=== PATIENT | female | born 1940 | race Caucasian/White ===

== ENCOUNTER 2021-07-30 11:05 | Emergency (ER) | payer OTHER, SELFPAY ==
--- NOTE | ~2021-07-30 | XR_ITS ---
XR chest 2V DATE: 07/30/2021 12:07 INDICATION: Cough, shortness of breath TECHNIQUE: 2 views COMPARISON: 09/22/2018 PA and lateral chest FINDINGS: Cardiomegaly. Is aortic calcification, ectasia and tortuosity. The central pulmonary arteri es appear prominent, suggesting pulmonary hypertension. There is bilateral hyperinflation suggesting COPD. No active pulmonary infiltrate or consolidation, pleural effusion or pulmonary vascular congestion or pneumothorax is detected. There is diffuse osteopenia. There is chronic compression fracture deformity of an upper lumbar verte bra. IMPRESSION: Bilateral hyperinflation and prominent central pulmonary artery suggesting COPD and pulmo nary hypertension Cardiomegaly No active pulmonary disease Chronic mild to moderate anterior wedge compression fracture deformity of upper lumbar vertebra; diff use osteopenia Reviewed, dictated and finalized at location A. IMPRESSION: Bilateral hyperinflation and prominent central pulmonary artery sug gesting COPD and pulmonary hypertension Cardiomegaly No active pulmonary disease Chronic mild to moderate anterior wedge compression fracture deformity of upper lumbar vertebra; diffuse osteopenia
[2021-07-30 11:30] VITALS: BP 109/64; PULSE 94; RESP 18; TEMP 36.7; O2SAT 94
--- NOTE | 2021-07-30 12:09 | ED.URI ---
HPI - URI/Sore Throat General Chief Complaint: Upper Respiratory Infection Stated Complaint: Chills,Runny Nose,Shortness of Breath Source: patient Mode of arrival: ambulatory Limitations: no limitations History of Present Illness HPI Narrative: Patient is a 81-year-old female who presents with daughter after chills, fatigue, headache, shortness of breath with exertion and decreased p.o. intake x1 week. She denies fever, cough. She denies exposure to Covid, Covid vaccinated x2. Patient lives with family. She reports a history of hypertension and diabetes. She denies all other complaints at this time. She reports taking [id number]-[id number] medications without relief. Related Data Home Medications Medication Instructions Recorded Confirmed vit C 250 mg-vit E 90 mg-zinc 40 1 tablet PO BID 09/24/19 07/30/21 mg-copper 1 he-avxdvn-zrawiq capsule terbinafine HCl 250 mg tablet 250 mg PO DAILY tablet 04/12/21 07/30/21 metformin 500 mg PO TID 07/30/21 07/30/21 Allergies Allergy/AdvReac Type Severity Reaction Status Date / Time No Known Allergies Allergy Verified 07/30/21 12:11 Review of Systems Review of Systems: CONSTITUTIONAL: Reports chills EYES: Denies visual changes, redness, or discharge. ENT: Denies rhinorrhea, congestion, sore throat, or otalgia. CARDIOVASCULAR: Denies chest pain, palpitations, or edema. RESPIRATORY: Denies cough, reports dyspnea. GASTROINTESTINAL: Denies abdominal pain, nausea, vomiting, or diarrhea. GENITOURINARY: Denies dysuria or hematuria. SKIN: Denies rash or itching. MUSCULOSKELETAL: Denies back pain, joint pain, or myalgia. NEUROLOGIC: Reports headache, denies numbness, dizziness, or weakness. PSYCHIATRIC: Denies anxiety or depression. 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 Surgical History Surgical History History of total hysterectomy Family History Family History Mother Hypertension Family history of cardiovascular disease Father Cerebrovascular accident, Onset Age: 69 Sibling Family history of malignant neoplasm, Onset Age: 75 Social History Social History Second hand tobacco smoke exposure: No Smoking end date: 10/16/02 Alcohol intake: never Substance use: never Substance use type: does not use Gender identity (if verbalized by the patient): Female Comments At the time of signature, I have reviewed and agree with nursing past medical, surgical, social, and family history unless otherwise noted. Please see nursing chart for further information. There is no relevant family history pertinent to the presenting complaint. Exam Narrative: GENERAL: Well-appearing, well-nourished, and in no acute distress. HEAD: Normocephalic, atraumatic. EYES: EOMI. No redness or drainage. Conjunctiva are normal. ENT: Mucous membranes pink and moist CHEST: No respiratory distress. Diminished bilaterally, no wheezes noted HEART: Regular rate and rhythm. No murmur appreciated. Normal peripheral pulses. EXTREMITIES: Normal range of motion. No edema. SKIN: Warm, dry, no rash. NEURO: No focal deficits. Alert and oriented x3. Gait steady. PSYCH: Normal affect. No signs of depression or anxiety. Course Vital Signs Vital signs: Vital Signs Temperature 36.7 C 07/30/21 11:30 Pulse Rate 94 07/30/21 11:30 Respiratory Rate 18 07/30/21 11:30 Blood Pressure 109/64 07/30/21 11:30 Pulse Oximetry 94 07/30/21 11:30 Temperature 36.7 C 07/30/21 11:30 Pulse Rate 94 07/30/21 11:30 Respiratory Rate 18 07/30/21 11:30 Blood Pressure 109/64 07/30/21 11:30 Pulse Oximetry 94 07/30/21 11:30
== END 2021-07-30 12:44 | disposition home or self-care (01) ==
PROVIDERS: Emergency Provider Nurse Practitioner; PCP Family Medicine
DX: J06.9 Acute upper respiratory infection, unspecified (principal); Z20.822 Contact with and (suspected) exposure to COVID-19; Z85.42 Personal history of malignant neoplasm of other parts of uterus; H35.3132 Nonexudative age-related macular degeneration, bilateral, intermediate dry stage
CPT/HCPCS: 71046; 87426; 99213; C9803; G0463

== ENCOUNTER 2021-11-10 13:42 | Inpatient (IN) | payer OTHER, SELFPAY ==
--- NOTE | ~2021-11-10 | CT_ITS ---
EXAMINATION: CT abdomen pelvis wo con DATE: 11/11/2021 10:34 INDICATION: Diarrhea. TECHNIQUE: Computed tomography (CT) of the abdomen and pelvis was performed without intravenous contr ast. The dose-length product was 945.34 mGy-cm. Automated exposure control and iterative reconstructi on technique were employed. COMPARISON: None. FINDINGS: Lung bases are unremarkable. There is a 1.6 x 0.9 cm stone in the left UPJ with moderate le ft hydronephrosis and perinephric edema. There are nonobstructing left renal stones. Heart size normal. No significant pleural or pericardial effusion. Lung bases unremarkable. The liver, spleen, pancreas, adrenal glands are unremarkable. There is a small nonobstructing right r enal stone. Gallbladder is present. Nonobstructive bowel gas pattern. Colonic diverticulosis without evidence for diverticulitis. There is atherosclerosis without aneurysm. Small fat-containing umbilica l hernia. No abnormal pelvic masses or fluid collections. There is moderate lumbar spondylosis with l evoscoliosis. There is mild osteoarthritis of the hips. IMPRESSION: 1. Large left UPJ stone with moderate hydronephrosis and perinephric edema. 2: Nonobstructing bilateral nephrolithiasis. Reviewed, dictated and finalized at location B. RVISOR EDGING
--- NOTE | ~2021-11-10 | XR_ITS ---
XR chest 1V portable DATE: 11/10/2021 17:51 INDICATION: Cough. Weakness. TECHNIQUE: Portable upright AP chest on 11/10/2021 1747 hours COMPARISON: 07/30/2021 PA and lateral chest FINDINGS: Mild cardiomegaly. There is aortic calcification, ectasia, tortuosity. No hilar or mediasti nal enlargement. No pulmonary infiltrate or consolidation, pleural effusion or pulmonary vascular congestion or pneumo thorax. Diffuse osteopenia. IMPRESSION: Mild cardiomegaly Aortic calcification, ectasia, tortuosity No active pulmonary disease Reviewed, dictated and finalized at location A. E MANAGER
--- NOTE | ~2021-11-10 | XR_ITS ---
EXAMINATION: XR retrograde pyelo w/stent LT DATE: 11/11/2021 15:09 INDICATION: Left internal ureteral stent placement TECHNIQUE: Fluoroscopic images from a left internal ureteral stent placement are submitted for review . 65 seconds of fluoroscopy time. 5 fluoroscopic images FINDINGS: There is a left double-J internal ureteral stent projecting in expected position, with proximal Sylvester loop at the level of the renal pelvis and distal loop in the pelvis within the bladder lumen. IMPRESSION: 1. Left internal ureteral stent placement. Please refer to real-time procedural findings for detail s. Reviewed, dictated and finalized at location B. HAND MAINTENANCE IMPRESSION: 1. Left internal ureteral stent placement. Please refer to real-time procedur al findings for details.
--- NOTE | ~2021-11-10 | XR_ITS ---
EXAMINATION: XR abdomen/kub 1V DATE: 11/12/2021 08:13 INDICATION: Left ureteral stone. TECHNIQUE: A supine view of the abdomen was obtained. COMPARISON: CT abdomen and pelvis 11/11/2021 FINDINGS: There are no dilated loops of bowel. There is a left internal ureteral stent in expected po sition. There are 3 mm and 8 mm stones in left kidney. IMPRESSION: 1. Stones in left kidney. Left internal ureteral stent in expected position. Reviewed, dictated and finalized at location A. ICAL TREATMENT PLANT TECHNICIAN
[2021-11-10 14:17] VITALS: BP 106/64; PULSE 80; RESP 18; TEMP 36.7; O2SAT 95
[2021-11-10 15:31] VITALS: BP 107/58; PULSE 88; TEMP 36.6; O2SAT 95
[2021-11-10 17:35] VITALS: BP 114/77; PULSE 86; RESP 18; TEMP 36.8; O2SAT 95
--- NOTE | 2021-11-10 17:40 | ECG_ITS ---
Measurements Intervals [place] Rate: 84 P: 52 ND: 151 QRS: -19 QRSD: 92 T: 46 QT: 389 QTc: 461 Interpretive Statements SINUS RHYTHM ATRIAL PREMATURE COMPLEXES DELAYED PRECORDIAL R/S TRANSITION BORDERLINE ECG Electronically Signed On 11-11-2021 6:46:02 DESIGN/ANIMATION INSTRUCTOR by Jian Thrasher D.O.
[2021-11-10 18:06] LABS: Hematocrit 43.6 % (37.0-47.0); Hemoglobin 14.5 g/dL (12.0-15.0); Mean Corpuscular HGB Conc 33.3 g/dl (32-36); Mean Corpuscular Hemoglobin 30.4 pg (26-34); Mean Corpuscular Volume 91.4 fl (80-100); Mean Platelet Volume 11.6 fl (7.4-10.4); Platelet Count Result 454 k/mm3 (150-375); Red Blood Count 4.77 M/mm3 (4.2-5.4); Red Cell Distribution Width 13.9 % (11.5-14.5); White Blood Count 20.4 K/mm3 (4.5-10.0)
[2021-11-10 18:18] LABS: Alanine Aminotransferase 46 U/L (4-35); Albumin Level 4.1 g/dL (3.5-5.1); Alkaline Phosphatase 135 U/L (38-126); Anion Gap 14 mmol/L (8-16); Aspartate Amino Transferase 66 U/L (14-36); Blood Urea Nitrogen 40 mg/dL (7-17); Calcium 9.4 mg/dL (8.4-10.2); Carbon Dioxide 27 mmol/L (22-30); Chloride 93 mmol/L (98-107); Estimated CRCL calculation 19 ml/min; Estimated Glomerular Filt Rate 19; Glucose 149 mg/dL (65-110); Potassium 3.6 mmol/L (3.4-5.0); Sodium 134 mmol/L (137-145)
--- NOTE | 2021-11-10 18:40 | ED.GENADULT ---
HPI - General Adult General Chief complaint: Unspecified Stated complaint: Multiple complaints Time Seen by Provider: 11/10/21 17:42 Source: patient and RN notes reviewed Limitations: no limitations History of Present Illness HPI narrative: 81-year-old female presented emerge department for evaluation of diarrhea has been going on for approximately 1 week. Patient states over the course of the week she has had daily diarrhea. Patient reports fatigue at this point. Patient denies any associate abdominal pain. Patient did have similar symptoms of prolonged diarrhea a few years ago but nothing was found on her work-up. Related Data Allergies Allergy/AdvReac Type Severity Reaction Status Date / Time No Known Allergies Allergy Verified 11/10/21 17:35 Review of Systems Review of Systems: CONSTITUTIONAL: Does report generalized fatigue and malaise EYES: Denies visual changes, redness, or discharge. ENT: Denies rhinorrhea, congestion, sore throat, or otalgia. CARDIOVASCULAR: Denies chest pain, palpitations, or edema. RESPIRATORY: Denies cough or dyspnea. GASTROINTESTINAL: Denies abdominal pain nausea vomiting but does have diarrhea GENITOURINARY: Denies dysuria or hematuria. SKIN: Denies rash or itching. MUSCULOSKELETAL: Denies back pain, joint pain, or myalgia. NEUROLOGIC: Denies headache, numbness, or weakness. PMFSH Past Medical History Medical History History of tobacco use History of uterine cancer 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 Surgical History Surgical History History of total hysterectomy Family History Family History Mother Hypertension Family history of cardiovascular disease Father Cerebrovascular accident, Onset Age: 69 Sibling Family history of malignant neoplasm, Onset Age: 75 Social History Social History Second hand tobacco smoke exposure: No Smoking end date: 10/16/02 Alcohol intake: never Substance use: never Substance use type: does not use Gender identity (if verbalized by the patient): Female Exam Narrative: APPEARANCE: Well appearing, no pain, no distress, well-nourished. HEAD: normocephalic, atraumatic. EYES: PERRLA/EOMI, conjunctivae clear. NOSE: Normal no drainage NECK: Supple. No adenopathy, no masses. RESPIRATORY: Airway patent, respirations nonlabored. CARDIOVASCULAR: Regular rate and rhythm without murmurs rubs or gallops. ABDOMINAL: Soft, nontender, nondistended, normal bowel sounds MUSCULOSKELETAL: Moves all extremities. Strength/ROM intact, No edema, No calf tenderness. NEURO: Alert. Cranial nerves II through XII intact. SKIN: Warm, dry. Normal Color Course Course Emergency Course: Patient does have a significant acute kidney injury due to her dehydration and diarrhea. Patient is being rehydrated the restroom. Patient also has a urinary tract infection. Patient was treated with IV antibiotics. Case was discussed with the hospitalist and patient was accepted for admission for diarrhea, OVI, and UTI. I was updated on her results and plan for admission. All questions and concerns were addressed. Patient was stable at time of admission. Vital Signs Vital signs: Vital Signs Temperature 98.0 F 11/10/21 14:17 Pulse Rate 80 11/10/21 14:17 Respiratory Rate 18 11/10/21 14:17 Blood Pressure 106/64 11/10/21 14:17 Pulse Oximetry 95 11/10/21 14:17 Temperature 98.2 F 11/10/21 17:35 Pulse Rate 83 11/10/21 19:22 Respiratory Rate 20 11/10/21 19:22 Blood Pressure 111/55 L 11/10/21 19:22 Pulse Oximetry 97 11/10/21 19:22 Medical Decision Making Vital Signs Vital Signs: Vital Signs Temperature 98.0 F 11/10/21 14:17 Pulse Rate 80 11/10/21 14:17 Re
[2021-11-10 18:41] LABS: Band Neutrophils Percent 1 % (0-6); Lymphocytes Absolute Manual 2.44 K/mm3 (1.1-4.5); Monocytes Absolute Manual 2.44 K/mm3 (0.1-0.90); Monocytes Percent Manual 12 % (3-9); Neutrophils Percent Manual 75 % (46-73); Total Cells Counted 100
[2021-11-10 18:42] LABS: Platelet Estimate Increased (Adequate)
[2021-11-10] MEDS: SODIUM CHLORIDE 0.9% IV 1,000 ML 999 ML IV CONT (18:57)
[2021-11-10 19:22] VITALS: BP 111/55; PULSE 83; RESP 20; O2SAT 97
[2021-11-10 20:10] LABS: SARS-CoV-2 RNA PCR Negative
[2021-11-10 21:18] LABS: Add Urine Microscopic? YES; Appearance Urine Turbid (Clear); Bacteria Urine 2+ /hpf; Bilirubin Urine Negative (Negative); Color Urine Yellow (Yellow); Glucose Urine UA Negative (Negative); Ketones Urine Trace mg/dL (Negative); Leukocyte Esterase Ur 3+ LEU/UL (Negative); Mucus Urine Few /lpf; Nitrate Urine Negative (Negative); Protein Urine 2+ mg/dL (Negative); RBC Urine >75 /hpf (0-2); Specific Grav Ur 1.021 (1.001-1.035); Squamous Epithelial Cell Urine Many /hpf (Few); WBC Urine >75 /hpf
[2021-11-10 21:19] LABS: Blood Urine Negative (Negative)
[2021-11-10 22:54] VITALS: BP 109/59; PULSE 86; RESP 16; O2SAT 100
[2021-11-10 23:05] VITALS: BP 126/75; PULSE 91; RESP 16; TEMP 36.1; O2SAT 95; BMI 32.3
[2021-11-10] MEDS: SODIUM CHLORIDE 0.9% IV 1,000 ML 125 ML IV CONT (23:23)
--- NOTE | 2021-11-10 23:37 | ADMGEN ---
This patient, Alcira Contreras, was admitted to 3 [facility] Surg Room [id number]. Patient/family oriented to hospital policies and general routines including ID bracelet, bed and alarms, visiting hours, pain management, procedures, bathroom and other care routines, personal items, smoking policy, room service/diet, and visiting hours. Information on how to activate the Rapid Response Team has been discussed. Patient/Family are encouraged to report perceived risks to care and to ask questions if they do not understand what they are told or what they should do.
--- NOTE | 2021-11-10 23:49 | PM.IMHP ---
H&P: HPI History of Present Illness Date/Time: 11/10/21 23:49 Chief Complaint: Diarrhea Narrative: 81-year-old female who presented emergency department for evaluation of diarrhea directly from his primary care's office today. She has been having diarrhea since approximately a week. The diarrhea is constant and watery without any blood. She recently been to [place] about a month ago. No recent use of antibiotics. She has not been eating well over this course and has not been ambulatory as well due to generalized weakness that she has. She has also been feeling lightheaded. And went to see your primary care today for evaluation. She was noted to be hypotensive in the office and hence redirected to the ER for further evaluation. Patient reports some mild lower abdominal discomfort however no obvious pain. No fever chills nausea vomiting Review of Systems Review of Systems: - CONSTITUTIONAL: Denies weight loss, fever and chills. - HEENT: Denies changes in vision and hearing - RESPIRATORY: Denies SOB and cough. - CV: Denies palpitations and CP. - GI: Denies abdominal pain, nausea, vomiting and reports diarrhea. - : Denies dysuria and urinary frequency. - MSK: Denies myalgia and joint pain. - SKIN: Denies rash and pruritus. - NEUROLOGICAL: Denies headache and syncope. - PSYCHIATRIC: Denies recent changes in mood. Denies anxiety and depression. All systems reviewed & are unremarkable except as noted in HPI and below Constitutional: Constitutional: Reports fatigue and Reports weakness Neurologic: Reports weakness Endocrine: Endocrine: Reports fatigue PMFSH Past Medical History Medical History History of tobacco use History of uterine cancer 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 Surgical History Surgical History History of total hysterectomy Family History Family History Mother Hypertension Family history of cardiovascular disease Father Cerebrovascular accident, Onset Age: 69 Sibling Family history of malignant neoplasm, Onset Age: 75 Social History Social History Smoking status: Former smoker Second hand tobacco smoke exposure: No Alcohol intake: never Substance use: never Substance use type: does not use Gender identity (if verbalized by the patient): Female Spiritual care concerns: No Meds Home Medications and Allergies Home Medications Medication Instructions Recorded Confirmed Type cholecalciferol (vitamin D3) 1,250 1,250 mcg PO WEEKLY #12 cap 09/19/21 11/11/21 Rx mcg (50,000 unit) capsule metformin 500 mg tablet 500 mg PO TID #360 tablet 09/27/21 11/11/21 Rx amlodipine 5 mg tablet 5 mg PO DAILY #90 tablet 10/05/21 11/11/21 Rx benazepril 20 1 tablet PO DAILY #90 tablet 10/22/21 11/11/21 Rx mg-hydrochlorothiazide 12.5 mg tablet metoprolol tartrate 25 mg tablet 25 mg PO BID #180 tablet 10/22/21 11/11/21 Rx simvastatin 40 mg tablet 40 mg PO DAILY #90 tablet 10/22/21 11/11/21 Rx famotidine 20 mg tablet 20 mg PO BID #180 tablet 10/27/21 11/11/21 Rx Allergies Allergy/AdvReac Type Severity Reaction Status Date / Time No Known Allergies Allergy Verified 11/11/21 00:00 Vital Signs Vital Signs - 24 hr 11/10/21 14:17 11/10/21 15:31 11/10/21 17:35 Temperature 98.0 F 97.9 F 98.2 F Pulse Rate 80 88 86 Respiratory Rate 18 18 Blood Pressure 106/64 107/58 L 114/77 Pulse Oximetry 95 95 95 11/10/21 19:22 11/10/21 22:54 11/10/21 23:05 Temperature 97.0 F L Pulse Rate 83 86 91 Respiratory Rate 20 16 16 Blood Pressure 111/55 L 109/59 L 126/75 Pulse Oximetry 97 100 95 Exam Narrative: APPEARANCE: Well appearing, no pain, no distress, well-nourished. HEAD: nor
[2021-11-11] VITALS (11 sets, daily range): BP systolic 93–148; BP diastolic 50–78; PULSE 75–91; RESP 16–24; TEMP 36.2–36.8; O2SAT 92–100
[2021-11-11] MEDS: SODIUM CHLORIDE 0.9% IV 1,000 ML 125 ML IV CONT ×2 (05:38→19:33)
[2021-11-11 06:46] LABS: Toxigenic C. Diff NEGATIVE (NEGATIVE)
[2021-11-11 08:19] LABS: Glucose Point of Care 156 mg/dl (65-105)
[2021-11-11] MEDS: FAMOTIDINE 20 MG TABLET PO ×2 (08:26→20:07)
[2021-11-11] MEDS: HEPARIN SODIUM 5,000 UNITS/ML VIAL 5000 UNITS SUB-Q ×2 (08:26→20:07)
--- NOTE | 2021-11-11 10:03 | PM.IMPN ---
Progress Note: A&P Assessment and Plan (1) OVI (acute kidney injury): Code(s): N17.9 - Acute kidney failure, unspecified Status: Acute Assessment and Plan: Most likely related to dehydration give IV fluid (2) Acute UTI: Code(s): N39.0 - Urinary tract infection, site not specified Status: Acute Assessment and Plan: Continue IV antibiotics (3) Acute diarrhea: Code(s): R19.7 - Diarrhea, unspecified Status: Acute Assessment and Plan: Rule out C diff colitis Will get GI evaluation CT scan of the abdomen Adjust antibiotic to Rocephin and azithromycin (4) Hypotension: Code(s): I95.9 - Hypotension, unspecified Status: Acute Assessment and Plan: Most likely related to dehydration give IV fluid (5) Weakness: Code(s): R53.1 - Weakness Status: Acute Assessment and Plan: PT OT eval (6) Type 2 diabetes mellitus with stage 3a chronic kidney disease: Code(s): E11.22 - Type 2 diabetes mellitus with diabetic chronic kidney disease; N18.31 - Chronic kidney disease, stage 3a Status: Acute Assessment and Plan: Insulin sliding scale (7) Hypertensive chronic kidney disease: Code(s): I12.9 - Hypertensive chronic kidney disease with stage 1 through stage 4 chronic kidney disease, or unspecified chronic kidney disease Status: Acute Assessment and Plan: Associated with acute renal failure (8) Essential (primary) hypertension: Code(s): I10 - Essential (primary) hypertension Status: Acute Assessment and Plan: Continue current treatment hypotension has resolved (9) Mixed hyperlipidemia: Code(s): E78.2 - Mixed hyperlipidemia Status: Acute Assessment and Plan: Continue home medication Subjective Date/time seen: 11/11/21 10:03 Interval history: Patient presented to the hospital with abdominal pain generalized weakness nausea Was found to have acute renal failure probable infectious colitis admitted for further evaluation and treatment Patient feels weak complains of abdominal pain Patient denies fever headache chest pain shortness of breath I am seeing the patient for abdominal pain Exam Narrative: APPEARANCE: Well appearing, no pain, no distress, well-nourished. HEAD: normocephalic, atraumatic. EYES: PERRLA/EOMI, conjunctivae clear. NOSE: Normal no drainage NECK: Supple. No adenopathy, no masses. RESPIRATORY: Airway patent, respirations nonlabored. CARDIOVASCULAR: Regular rate and rhythm without murmurs rubs or gallops. ABDOMINAL: Soft, mild tender lower abdomen, nondistended, normal bowel sounds MUSCULOSKELETAL: Moves all extremities. Strength/ROM intact, No edema, No calf tenderness. NEURO: Alert. Cranial nerves II through XII intact. SKIN: Warm, dry. Normal Color Objective Data Vital Signs Vital Signs: Vital Signs - 24 hr 11/10/21 14:17 11/10/21 15:31 11/10/21 17:35 Temperature 98.0 F 97.9 F 98.2 F Pulse Rate 80 88 86 Respiratory Rate 18 18 Blood Pressure 106/64 107/58 L 114/77 Pulse Oximetry 95 95 95 11/10/21 19:22 11/10/21 22:54 11/10/21 23:05 Temperature 97.0 F L Pulse Rate 83 86 91 Respiratory Rate 20 16 16 Blood Pressure 111/55 L 109/59 L 126/75 Pulse Oximetry 97 100 95 11/11/21 06:00 Temperature 97.4 F L Pulse Rate 91 Respiratory Rate 16 Blood Pressure 148/74 H Pulse Oximetry 92 Intake/Output Intake/Output: Intake & Output 11/08/21 11/09/21 11/10/21 11/11/21 23:59 23:59 23:59 23:59 Intake Total 1050 1400 Balance 1050 1400 Meds/Results Medications: Active Medications Generic Name Dose Route Start Last Admin Trade Name Freq PRN Reason Stop Dose Admin Hydrocodone Bitart/Acetaminophen 1 tab 11/11/21 10:01 Hydrocodone/Acetaminophen (*Crx) 5-325 Mg Tablet PO Q6H PRN Pain Rated 4-6 Dextrose 12.5 gm 11/11/21 00:01 Dextrose 50% 25 Gm/50 Ml Syringe IV PUSH PRN PRN Hypoglycemia P
[2021-11-11] MEDS: METOPROLOL TARTRATE 25 MG TABLET PO ×2 (12:23→20:06)
[2021-11-11] MEDS: SIMVASTATIN 20 MG TABLET 40 MG PO (12:24)
[2021-11-11 12:48] LABS: Glucose Point of Care 132 mg/dl (65-105)
--- NOTE | 2021-11-11 13:36 | WPDANESEPPF ---
Anes - Initial Pre Proc Eval Procedure: Operation Date: 11/11/21 13:45 Proposed Procedures p Cystoscopy,Left Stent Placement - Freddie Pichardo MD Date/Time: 11/11/21 13:36 Surgeon: Frank Simon MD Pre Op Diagnosis: diarrhea, acute kidney injury Patient Data Age: 81 Gender: F Height: 1.68 m Weight: 90.7 kg Last Vital Signs Temp 36.3 C L 11/11/21 06:00 Pulse 91 11/11/21 06:00 Resp 16 11/11/21 06:00 BP 148/74 H 11/11/21 06:00 Pulse Ox 92 11/11/21 06:00 Allergies Allergy/AdvReac Type Severity Reaction Status Date / Time No Known Allergies Allergy Verified 11/11/21 00:00 Home Medications Medication Instructions Recorded Confirmed Type cholecalciferol (vitamin D3) 1,250 1,250 mcg PO WEEKLY #12 cap 09/19/21 11/11/21 Rx mcg (50,000 unit) capsule metformin 500 mg tablet 500 mg PO TID #360 tablet 09/27/21 11/11/21 Rx amlodipine 5 mg tablet 5 mg PO DAILY #90 tablet 10/05/21 11/11/21 Rx benazepril 20 1 tablet PO DAILY #90 tablet 10/22/21 11/11/21 Rx mg-hydrochlorothiazide 12.5 mg tablet metoprolol tartrate 25 mg tablet 25 mg PO BID #180 tablet 10/22/21 11/11/21 Rx simvastatin 40 mg tablet 40 mg PO DAILY #90 tablet 10/22/21 11/11/21 Rx famotidine 20 mg tablet 20 mg PO BID #180 tablet 10/27/21 11/11/21 Rx Laboratory Tests 11/10/21 11/10/21 11/10/21 17:55 17:55 19:04 WBC 20.4 K/mm3 H K/mm3 (4.5-10.0) RBC 4.77 M/mm3 M/mm3 (4.2-5.4) Hgb 14.5 g/dL g/dL (12.0-15.0) Hct 43.6 % % (37.0-47.0) MCV 91.4 fl fl (80-100) MCH 30.4 pg pg (26-34) MCHC 33.3 g/dl g/dl (32-36) RDW 13.9 % % (11.5-14.5) Plt Count 454 k/mm3 H k/mm3 (150-375) MPV 11.6 fl H fl (7.4-10.4) Immature Gran % (Auto) Not Reportable Neut % (Auto) Not Reportable Lymph % (Auto) Not Reportable [place] % (Auto) Not Reportable Eos % (Auto) Not Reportable Baso % (Auto) Not Reportable Lymph # (Auto) Not Reportable [place] # (Auto) Not Reportable Eos # (Auto) Not Reportable Baso # (Auto) Not Reportable Abs Immat Gran (auto) Not Reportable Absolute Neuts (auto) Not Reportable Absolute Nucleated RBC Not Reportable Total Counted 100 Neutrophils % (Manual) 75 % H % (46-73) Band Neutrophils % 1 % % (0-6) Lymphocytes % (Manual) 12.0 % L % (18-44) Monocytes % (Manual) 12 % H % (3-9) Nucleated RBC % Not Reportable Abs Neuts (Manual) 15.50 K/mm3 H K/mm3 (1.7-7.2) Abs Lymphs (Manual) 2.44 K/mm3 K/mm3 (1.1-4.5) Abs Monocytes (Manual) 2.44 K/mm3 H K/mm3 (0.1-0.90) Platelet Estimate Increased (Adequate) Sodium 134 mmol/L L mmol/L (137-145) Potassium 3.6 mmol/L mmol/L (3.4-5.0) Chloride 93 mmol/L L mmol/L (98-107) Carbon Dioxide 27 mmol/L mmol/L (22-30) Anion Gap 14 mmol/L mmol/L (8-16) BUN 40 mg/dL H mg/dL (7-17) Creatinine 2.40 mg/dL H mg/dL (0.7-1.0) Estim Creat Clear Calc 19 ml/min ml/min Estimated GFR 19 L (59 - ) Glucose 149 mg/dL H mg/dL (65-110) POC Capillary Glucose Calcium 9.4 mg/dL mg/dL (8.4-10.2) Total Bilirubin 1.0 mg/dL mg/dL (0.2-1.3) AST 66 U/L H U/L (14-36) ALT 46 U/L H U/L (4-35) Alkaline Phosphatase 135 U/L H U/L (38-126) Total Protein 8.0 g/dL g/dL (6.3-8.2) Albumin 4.1 g/dL g/dL (3.5-5.1) Urine Color Urine Appearance Urine pH Ur Specific [place] Urine Protein Urine Glucose (UA) Urine Ketones Ur Blood (Man) Urine Nitrate
--- NOTE | 2021-11-11 13:44 | WPDURCON ---
Assessment and Plan Assessment and plan (1) OVI (acute kidney injury): Code(s): N17.9 - Acute kidney failure, unspecified Status: Acute (2) Acute UTI: Code(s): N39.0 - Urinary tract infection, site not specified Status: Acute (3) Left ureteral stone: Code(s): N20.1 - Calculus of ureter Status: Acute Assessment and Plan: Presence of an obstructing left proximal ureteral stone with urinary tract infection and transient hypotension I will proceed with cystoscopy left ureteral stent placement. In the future she will need left his tibia was definitive management for her obstructing stone. Urology Consult Note HPI Date Seen: 11/11/21 Requesting Physician: Frank Simon MD Primary Care Provider: Shelli Vieyra MD Consult Narrative Narrative: Alcira Contreras is a 81 year old female, previously unknown to our practice, admitted to the emergency department last night with 1 week history of ataxia and documented hypotension is a physician's office. She denies much in the way of abdominal or flank pain and has no irritable voiding or gross hematuria. Imaging today, however, reveals an 8-9 mm obstructing left proximal ureteral stone she appears to have infected urine. 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 Mixed hyperlipidemia Obesity Primary osteoarthritis of both knees Type 2 diabetes mellitus without complication, without long-term current use of insulin Surgical History Surgical History History of total hysterectomy Family History Family History Mother Hypertension Family history of cardiovascular disease Father Cerebrovascular accident, Onset Age: 69 Sibling Family history of malignant neoplasm, Onset Age: 75 Social History Social History Smoking status: Former smoker Second hand tobacco smoke exposure: No Alcohol intake: never Substance use: never Substance use type: does not use Gender identity (if verbalized by the patient): Female Spiritual care concerns: No Meds Home Medications and Allergies Home Medications Medication Instructions Recorded Confirmed Type cholecalciferol (vitamin D3) 1,250 1,250 mcg PO WEEKLY #12 cap 09/19/21 11/11/21 Rx mcg (50,000 unit) capsule metformin 500 mg tablet 500 mg PO TID #360 tablet 09/27/21 11/11/21 Rx amlodipine 5 mg tablet 5 mg PO DAILY #90 tablet 10/05/21 11/11/21 Rx benazepril 20 1 tablet PO DAILY #90 tablet 10/22/21 11/11/21 Rx mg-hydrochlorothiazide 12.5 mg tablet metoprolol tartrate 25 mg tablet 25 mg PO BID #180 tablet 10/22/21 11/11/21 Rx simvastatin 40 mg tablet 40 mg PO DAILY #90 tablet 10/22/21 11/11/21 Rx famotidine 20 mg tablet 20 mg PO BID #180 tablet 10/27/21 11/11/21 Rx Allergies Allergy/AdvReac Type Severity Reaction Status Date / Time No Known Allergies Allergy Verified 11/11/21 00:00 Vital Signs Vital Signs - 24 hr 11/10/21 14:17 11/10/21 15:31 11/10/21 17:35 Temperature 98.0 F 97.9 F 98.2 F Pulse Rate 80 88 86 Respiratory Rate 18 18 Blood Pressure 106/64 107/58 L 114/77 Pulse Oximetry 95 95 95 11/10
[2021-11-11] MEDS: LACTATED RINGERS 1,000 ML 30 ML IV CONT ×2 (14:00→15:40)
--- NOTE | 2021-11-11 14:07 | WPDGICN ---
Assessment and Plan Assessment and plan (1) Acute diarrhea: Code(s): R19.7 - Diarrhea, unspecified Status: Acute Assessment and Plan: Patient with profound diarrhea over last 1 and half weeks. Appears to be gradually improving. Suspect this was infectious in etiology. Stool cultures are currently in progress. Plan to review when available. Supportive care for now. Broad-spectrum antibiotics may be of some benefit. Also to cover for possible urinary tract infection. (2) Left ureteral stone: Code(s): N20.1 - Calculus of ureter Status: Acute Assessment and Plan: CT scan reveals left ureteral stone with subsequent left hydronephrosis. Urology service anticipating cystoscopy. Patient has concomitant urinary tract infection hopefully antibiotic coverage will cover UTI as well as potential for infectious diarrhea. GI Consult Note Consult date/time: 11/11/21 14:07 HPI: Alcira Contreras is a 81 year old female I am asked to see because of diarrhea. Patient reports traveling to [place] 1 month ago with no difficulties. She reports over last 1 and half weeks has had diarrhea. Initially poorly controlled. She states she now has soft stools that are more controlled in diarrhea has improved over recent days. She denies any bleeding. She has had no abdominal pain. No weight loss. Upon presentation the hospital CT scan performed revealed left hydronephrosis and obstructing kidney stone in the left ureter. Patient reports stool cultures obtained earlier today are still pending. Her family history is noncontributory no one else in the family is ill. 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 Mixed hyperlipidemia Obesity Primary osteoarthritis of both knees Type 2 diabetes mellitus without complication, without long-term current use of insulin Surgical History Surgical History History of total hysterectomy Family History Family History Mother Hypertension Family history of cardiovascular disease Father Cerebrovascular accident, Onset Age: 69 Sibling Family history of malignant neoplasm, Onset Age: 75 Social History Social History Smoking status: Former smoker Second hand tobacco smoke exposure: No Alcohol intake: never Substance use: never Substance use type: does not use Gender identity (if verbalized by the patient): Female Spiritual care concerns: No Meds Home Medications and Allergies Home Medications Medication Instructions Recorded Confirmed Type cholecalciferol (vitamin D3) 1,250 1,250 mcg PO WEEKLY #12 cap 09/19/21 11/11/21 Rx mcg (50,000 unit) capsule metformin 500 mg tablet 500 mg PO TID #360 tablet 09/27/21 11/11/21 Rx amlodipine 5 mg tablet 5 mg PO DAILY #90 tablet 10/05/21 11/11/21 Rx benazepril 20 1 tablet PO DAILY #90 tablet 10/22/21 11/11/21 Rx mg-hydrochlorothiazide 12.5 mg tablet metoprolol tartrate 25 mg tablet 25 mg PO BID #180 tablet 10/22/21 11/11/21 Rx simvastatin 40 mg tablet 40 mg PO DAILY #90 tablet 10/22/21 11/11/21 Rx famotidine 20 mg tablet 20 mg PO BID #180 tablet 10/27/21 11/11/21 Rx Allergies Allergy/AdvReac Type Severity Reaction Status Date / Time No Known Allergies Allergy Verified 11/11/21 00:00 Vital Signs Vital Signs - 24 hr 11/10/21 14:17 11/10/21 15:31 11/10/21 17:35 Temperature 98.0 F 97.9 F 98.2 F Pulse Rate 80 88 86 Respiratory Rate
--- NOTE | 2021-11-11 14:27 | WPDHPUPDATE1 ---
History and Physical Update Update Date/Time: 11/11/21 14:27 History and Physical has been reviewed, including an updated exam of the patient. There are NO changes in the patient's condition. Risks, benefits, and alternatives have been discussed and questions answered. Patient agrees to proceed with procedure.
--- NOTE | 2021-11-11 15:22 | W.PM.PROC2 ---
Procedure Note - Detailed Date of Procedure 11/11/21 Pre-op Diagnosis Left ureteral stone / UIT Post-op Diagnosis same Procedure Performed cystoscopy, left retrograde pyelography and left ureteral stent placement Surgeon Freddie Pichardo MD Anesthesia general Description of Procedure patient brought to the operative suite where she has prepped draped in routine sterile fashion while in dorsal lithotomy position after the uneventful induction of a general endotracheal anesthetic. Cystoscopy is undertaken with a 21 F rigid cystoscope. Bladder neck and urethra endoscopically normal. She has a normal bladder mucosa without hyperemia. There was no intravesical foreign body neoplasm. Angiographic catheter was used to obtain left retrograde pyelogram and outline left collecting system. A 4.8 F left ureteral stent is positioned with the proximal coil and upper pole calices and the distal coil in the bladder. Scopes wires removed. Patient was taken recovery room having tolerated this well. Estimated Blood Loss 0 Drains Yes Packing No Pathology none sent Complications No immediate complications Condition stable Disposition PACU
[2021-11-11 15:28] LABS: Glucose Point of Care 144 mg/dl (65-105)
[2021-11-11] MEDS: metroNIDAZOLE 500 MG/ISO 100ML 500 MG/100 ML BAG 100 MG IVPB ×2 (16:44→22:00)
[2021-11-11 17:14] LABS: Glucose Point of Care 149 mg/dl (65-105)
[2021-11-11 18:01] LABS: Hematocrit 39.7 % (37.0-47.0); Hemoglobin 13.1 g/dL (12.0-15.0); Mean Corpuscular Hemoglobin 30.4 pg (26-34); Mean Corpuscular Volume 92.1 fl (80-100); Mean Platelet Volume 11.7 fl (7.4-10.4); Platelet Count Result 405 k/mm3 (150-375); Red Blood Count 4.31 M/mm3 (4.2-5.4); White Blood Count 21.2 K/mm3 (4.5-10.0)
[2021-11-11] MEDS: ERTAPENEM SODIUM 0.5 GM in SODIUM CHLORIDE 0.9% IV 50 ML IVPB (18:07)
[2021-11-11 18:12] LABS: Lactic Acid Reflex 1.3 mmol/L (0.7-2.1)
[2021-11-11 18:13] LABS: Alanine Aminotransferase 44 U/L (4-35); Albumin Level 3.5 g/dL (3.5-5.1); Alkaline Phosphatase 126 U/L (38-126); Anion Gap 13 mmol/L (8-16); Aspartate Amino Transferase 74 U/L (14-36); Bilirubin,Total 0.9 mg/dL (0.2-1.3); Blood Urea Nitrogen 33 mg/dL (7-17); Calcium 8.6 mg/dL (8.4-10.2); Carbon Dioxide 20 mmol/L (22-30); Chloride 100 mmol/L (98-107); Estimated CRCL calculation 28 ml/min; Estimated Glomerular Filt Rate 31; Glucose 159 mg/dL (65-110); Potassium 3.8 mmol/L (3.4-5.0); Sodium 133 mmol/L (137-145)
[2021-11-11 18:21] LABS: CRP 6.8 mg/dL (<1.0)
[2021-11-11 18:43] LABS: Band Neutrophils Percent 7 % (0-6); Lymphocytes Absolute Manual 0.42 K/mm3 (1.1-4.5); Monocytes Absolute Manual 0.63 K/mm3 (0.1-0.90); Monocytes Percent Manual 3 % (3-9); Neutrophils Absolute Manual 20.14 K/mm3 (1.7-7.2); Neutrophils Percent Manual 88 % (46-73); Platelet Estimate Increased (Adequate); Total Cells Counted 100
[2021-11-11 19:08] LABS: Erythrocyte Sedimentation Rate 18 mm/hr (0-20)
[2021-11-12] MEDS: SODIUM CHLORIDE 0.9% IV 1,000 ML 125 ML IV CONT (04:54)
[2021-11-12] MEDS: metroNIDAZOLE 500 MG/ISO 100ML 500 MG/100 ML BAG 100 MG IVPB ×3 (05:02→22:37)
[2021-11-12 06:00] VITALS: BP 145/74; PULSE 72; RESP 16; TEMP 36.6; O2SAT 93
--- NOTE | 2021-11-12 07:09 | WPDUROPN2 ---
Progress Note: A&P Assessment and Plan (1) Left ureteral stone: Code(s): N20.1 - Calculus of ureter Status: Acute (2) Acute UTI: Code(s): N39.0 - Urinary tract infection, site not specified Status: Acute Assessment and Plan: Await urine culture. Anticipate discharge once other medical issues resolved. F/U with us in 1-2 weeks to re-check urine culture and schedule left ESWL. Subjective Subjective Date/Time Seen: 11/12/21 07:09 Tolerating left ureteral stent Review of Systems Cardiovascular: Cardiovascular: Denies chest pain, Denies lightheadedness, Denies palpitations and Denies dyspnea Respiratory: Respiratory: Denies dyspnea Gastrointestinal: Gastrointestinal: Denies diarrhea, Denies nausea and Denies vomiting Genitourinary: Genitourinary: Denies hematuria and Denies dysuria Endocrine: Endocrine: Denies palpitations Exam Const: General: no acute distress Resp: Effort & Inspection: normal respiratory effort GI: Inspection: non-distended GI Palp: No abdominal tenderness and No Guarding due to palpation present (GI) Auscultation: normal bowel sounds Objective Data Vital Signs Vital Signs: Vital Signs - 24 hr 11/11/21 14:08 11/11/21 15:18 11/11/21 15:30 Temperature 98.2 F 97.2 F L Pulse Rate 76 79 76 Respiratory Rate 16 24 H 20 Blood Pressure 133/68 93/50 L 93/63 L Pulse Oximetry 96 99 97 11/11/21 15:45 11/11/21 15:55 11/11/21 16:05 Temperature Pulse Rate 76 84 78 Respiratory Rate 24 H 20 20 Blood Pressure 101/72 128/68 125/67 Pulse Oximetry 100 93 98 11/11/21 16:15 11/11/21 20:00 11/11/21 20:06 Temperature Pulse Rate 76 75 76 Respiratory Rate 20 18 Blood Pressure 114/66 Pulse Oximetry 97 93 11/11/21 22:00 11/12/21 06:00 Temperature 97.6 F 97.9 F Pulse Rate 75 72 Respiratory Rate 18 16 Blood Pressure 142/78 H 145/74 H Pulse Oximetry 93 93 Intake/Output Intake/Output: Intake & Output 11/09/21 11/10/21 11/11/21 11/12/21 23:59 23:59 23:59 23:59 Intake Total 1050 4140 1450 Balance 1050 4140 1450 Meds/Results Medications: Active Medications Generic Name Dose Route Start Last Admin Trade Name Freq PRN Reason Stop Dose Admin Hydrocodone Bitart/Acetaminophen 1 tab 11/11/21 10:01 Hydrocodone/Acetaminophen (*Crx) 5-325 Mg Tablet PO Q6H PRN Pain Rated 4-6 Dextrose 12.5 gm 11/11/21 00:01 Dextrose 50% 25 Gm/50 Ml Syringe IV PUSH PRN PRN Hypoglycemia Protocol Ergocalciferol 50,000 unit 11/14/21 09:00 Ergocalciferol 50,000 Unit Capsule PO WEEKLY MACIE Famotidine 20 mg 11/11/21 09:00 11/11/21 20:07 Famotidine 20 Mg Tablet PO 20 mg Q12HR MACIE Administration Fentanyl Citrate 25 mcg 11/11/21 13:35 Fentanyl Citrate Inj (*Crx) 100 Mcg/2 Ml Vial IV PUSH Q2M PRN Pain Glucagon 1 mg 11/11/21 00:01 Glucagon For Inj 1 Mg Vial IM PRN PRN Hypoglycemia Protocol Glucose 15 gm 11/11/21 00:01 Glucose Oral Gel 15 Gm Of Glucse In 37.5 Gm Tube PO PRN PRN Hypoglycemia Protocol Heparin Sodium (Porcine) 5,000 units 11/11/21 09:00 11/11/21 20:07 Heparin Sodium 5,000 Units/Ml Vial SUB-Q 5,000 units Q12HR MACIE Administration Sodium Chloride 1,000 mls @ 125 mls/hr 11/10/21 20:05 11/12/21 04:54 Normal Saline Iv IV CONT 125 mls/hr .Q8H MACIE Administration Dextrose 1,000 mls @ 100 mls/hr 11/11/21 00:01 Dextrose 5% 1,000 Ml IVPB PRN PRN Hypoglycemia Protocol Metronidazole 500 mg in 100 mls @ 100 mls/hr 11/11/21 14:00 11/12/21 05:02 Flagyl 500 Mg/Iso Soln 100 Ml IVPB 100 mls/hr Q8HR MACIE Administration Ertapenem 0.5 gm/ Sodium 50 mls @ 100 mls/hr 11/11/21 13:00 11/11/21 18:40 Chloride IVPB Infused Q24H MACIE Infusion Insulin Aspart 2 - 5 units 11/11/21 08:00 11/11/21 16:44 Insulin Aspart (*Bkc) 100 Units/Ml SUB-Q Not Given TIDWM MACIE Protocol Metoprolol Ta
[2021-11-12 08:15] LABS: Glucose Point of Care 110 mg/dl (65-105)
--- NOTE | 2021-11-12 08:30 | WPDGIPROGNO ---
Progress Note: A&P Assessment and Plan (1) Acute diarrhea: Code(s): R19.7 - Diarrhea, unspecified Status: Acute Assessment and Plan: Patient reports diarrhea for week and half but now improving. I suspect this was infectious in etiology. Agree with stool cultures which are in progress. Broad-spectrum antibiotic coverage that covers our urinary tract infection is prudent. She can follow-up electively in the office if diarrhea fails to improve is an outpatient. Okay with me for discharge today of others agree. (2) Acute UTI: Code(s): N39.0 - Urinary tract infection, site not specified Status: Acute (3) Left ureteral stone: Code(s): N20.1 - Calculus of ureter Status: Acute Assessment and Plan: Patient had stent for left ureteral stone yesterday. Continued follow-up with Urology Service advised. Subjective Date/time seen: 11/12/21 08:30 patient entered admitted to the hospital with malaise. Found to have UTI and ureteral stone. Now status post cysto and stent. She will require lithotripsy at some point. Patient has had diarrhea for the last week and a half but this is improving. patient reports no significant diarrhea since admission the hospital. Anxious to go home. Review of Systems Review of Systems: All systems reviewed & are unremarkable except as noted in HPI and below Exam Narrative: Physical exam reveals patient be alert comfortable at rest. HEENT exam reveals no icterus. Lungs are clear. Heart without murmur. Abdomen bowel sounds present soft nontender with no organomegaly. Objective Data Vital Signs Vital Signs: Vital Signs - 24 hr 11/11/21 14:08 11/11/21 15:18 11/11/21 15:30 Temperature 98.2 F 97.2 F L Pulse Rate 76 79 76 Respiratory Rate 16 24 H 20 Blood Pressure 133/68 93/50 L 93/63 L Pulse Oximetry 96 99 97 11/11/21 15:45 11/11/21 15:55 11/11/21 16:05 Temperature Pulse Rate 76 84 78 Respiratory Rate 24 H 20 20 Blood Pressure 101/72 128/68 125/67 Pulse Oximetry 100 93 98 11/11/21 16:15 11/11/21 20:00 11/11/21 20:06 Temperature Pulse Rate 76 75 76 Respiratory Rate 20 18 Blood Pressure 114/66 Pulse Oximetry 97 93 11/11/21 22:00 11/12/21 06:00 Temperature 97.6 F 97.9 F Pulse Rate 75 72 Respiratory Rate 18 16 Blood Pressure 142/78 H 145/74 H Pulse Oximetry 93 93 Intake/Output Intake/Output: Intake & Output 11/09/21 11/10/21 11/11/21 11/12/21 23:59 23:59 23:59 23:59 Intake Total 1050 4140 1450 Balance 1050 4140 1450 Meds/Results Medications: Active Medications Generic Name Dose Route Start Last Admin Trade Name Freq PRN Reason Stop Dose Admin Hydrocodone Bitart/Acetaminophen 1 tab 11/11/21 10:01 Hydrocodone/Acetaminophen (*Crx) 5-325 Mg Tablet PO Q6H PRN Pain Rated 4-6 Dextrose 12.5 gm 11/11/21 00:01 Dextrose 50% 25 Gm/50 Ml Syringe IV PUSH PRN PRN Hypoglycemia Protocol Ergocalciferol 50,000 unit 11/14/21 09:00 Ergocalciferol 50,000 Unit Capsule PO WEEKLY MACIE Famotidine 20 mg 11/11/21 09:00 11/11/21 20:07 Famotidine 20 Mg Tablet PO 20 mg Q12HR MACIE Administration Fentanyl Citrate 25 mcg 11/11/21 13:35 Fentanyl Citrate Inj (*Crx) 100 Mcg/2 Ml Vial IV PUSH Q2M PRN Pain Glucagon 1 mg 11/11/21 00:01 Glucagon For Inj 1 Mg Vial IM PRN PRN Hypoglycemia Protocol Glucose 15 gm 11/11/21 00:01 Glucose Oral Gel 15 Gm Of Glucse In 37.5 Gm Tube PO PRN PRN Hypoglycemia Protocol Heparin Sodium (Porcine) 5,000 units 11/11/21 09:00 11/11/21 20:07 Heparin Sodium 5,000 Units/Ml Vial SUB-Q 5,000 units Q12HR MACIE Administration Sodium Chloride 1,000 mls @ 125 mls/hr 11/10/21 20:05 11/12/21 04:54 Normal Saline Iv IV CONT 125 mls/hr .Q8H MACIE Administration Dextrose 1,000 mls @ 100 mls/hr 11/11/21 00:01 Dextrose 5% 1,000 Ml IVPB PRN PRN Hypoglycemia
[2021-11-12 08:49] VITALS: PULSE 76
[2021-11-12] MEDS: SIMVASTATIN 20 MG TABLET 40 MG PO (08:49)
[2021-11-12] MEDS: METOPROLOL TARTRATE 25 MG TABLET PO ×2 (08:49→22:37)
[2021-11-12] MEDS: FAMOTIDINE 20 MG TABLET PO ×2 (08:49→22:36)
[2021-11-12] MEDS: HEPARIN SODIUM 5,000 UNITS/ML VIAL 5000 UNITS SUB-Q ×2 (08:49→22:36)
[2021-11-12 10:31] LABS: Basophils Absolute Auto 0.1 K/mm3 (0.0-0.1); Basophils Percent Auto 0.3 % (0.2-1.2); Eosinophils Absolute Auto 0.1 K/mm3 (0-0.3); Eosinophils Percent Auto 0.3 % (0-4.4); Hemoglobin 11.2 g/dL (12.0-15.0); Immature Granulocyte Absolute 0.18 K/mm3 (0.00-0.031); Immature Granulocyte Percent A 1.2 % (0-0.5); Mean Corpuscular Hemoglobin 30.4 pg (26-34); Mean Corpuscular Volume 94.9 fl (80-100); Mean Platelet Volume 11.4 fl (7.4-10.4); Monocytes Absolute Auto 1.4 K/mm3 (0.1-0.6); Monocytes Percent Auto 9.2 % (2.6-8.5); Neutrophils Absolute Auto 11.9 K/mm3 (1.3-6.7); Platelet Count Result 343 k/mm3 (150-375); Red Blood Count 3.69 M/mm3 (4.2-5.4); Red Cell Distribution Width 14.2 % (11.5-14.5)
--- NOTE | 2021-11-12 10:32 | PM.IMPN ---
Progress Note: A&P Assessment and Plan (1) OVI (acute kidney injury): Code(s): N17.9 - Acute kidney failure, unspecified Status: Acute Assessment and Plan: Most likely related to dehydration give IV fluid pending repeat CMP (2) Acute UTI: Code(s): N39.0 - Urinary tract infection, site not specified Status: Acute Assessment and Plan: Culture positive for E coli pending final culture continue ertapenem for now follow culture results (3) Acute diarrhea: Code(s): R19.7 - Diarrhea, unspecified Status: Acute Assessment and Plan: Rule out C diff colitis GI recommendation appreciated CT scan of the abdomen no evidence of colitis Continue Flagyl (4) Hypotension: Code(s): I95.9 - Hypotension, unspecified Status: Acute Assessment and Plan: Most likely related to dehydration resolved (5) Weakness: Code(s): R53.1 - Weakness Status: Acute Assessment and Plan: PT OT eval (6) Type 2 diabetes mellitus with stage 3a chronic kidney disease: Code(s): E11.22 - Type 2 diabetes mellitus with diabetic chronic kidney disease; N18.31 - Chronic kidney disease, stage 3a Status: Acute Assessment and Plan: Insulin sliding scale (7) Hypertensive chronic kidney disease: Code(s): I12.9 - Hypertensive chronic kidney disease with stage 1 through stage 4 chronic kidney disease, or unspecified chronic kidney disease Status: Acute Assessment and Plan: Associated with acute renal failure improved (8) Essential (primary) hypertension: Code(s): I10 - Essential (primary) hypertension Status: Acute Assessment and Plan: Continue current treatment hypotension has resolved (9) Mixed hyperlipidemia: Code(s): E78.2 - Mixed hyperlipidemia Status: Acute Assessment and Plan: Continue home medication Anticipate discharge in the next 24-48 hours after final culture Subjective Date/time seen: 11/12/21 10:32 Interval history: Patient presented to the hospital with abdominal pain generalized weakness nausea Was found to have acute renal failure probable infectious colitis admitted for further evaluation and treatment Patient feels weak complains of abdominal pain CT scan of the abdomen was done showed nephrolithiasis associated with left side moderate hydro nephrosis urology was consulted stent was placed on 11/11/2021 urine culture is growing E coli Patient also has diarrhea GI was consulted stool cultures pending continue Flagyl Currently patient is on ertapenem for UTI and Flagyl for diarrhea pending culture final culture Patient denies fever headache chest pain shortness of breath I am seeing the patient for abdominal pain Objective Data Vital Signs Vital Signs: Vital Signs - 24 hr 11/11/21 14:08 11/11/21 15:18 11/11/21 15:30 Temperature 98.2 F 97.2 F L Pulse Rate 76 79 76 Respiratory Rate 16 24 H 20 Blood Pressure 133/68 93/50 L 93/63 L Pulse Oximetry 96 99 97 11/11/21 15:45 11/11/21 15:55 11/11/21 16:05 Temperature Pulse Rate 76 84 78 Respiratory Rate 24 H 20 20 Blood Pressure 101/72 128/68 125/67 Pulse Oximetry 100 93 98 11/11/21 16:15 11/11/21 20:00 11/11/21 20:06 Temperature Pulse Rate 76 75 76 Respiratory Rate 20 18 Blood Pressure 114/66 Pulse Oximetry 97 93 11/11/21 22:00 11/12/21 06:00 11/12/21 08:49 Temperature 97.6 F 97.9 F Pulse Rate 75 72 76 Respiratory Rate 18 16 Blood Pressure 142/78 H 145/74 H Pulse Oximetry 93 93 Intake/Output Intake/Output: Intake & Output 11/09/21 11/10/21 11/11/21 11/12/21 23:59 23:59 23:59 23:59 Intake Total 1050 4140 1450 Balance 1050 4140 1450 Meds/Results Medications: Active Medications Generic Name Dose Route Start Last Admin Trade Name Freq PRN Reason Stop Dose Admin Hydrocodone Bitart/Acetaminophen 1 tab 11/11/21 10:01 Hydrocodone/Acetaminophen (*Crx) 5-325 Mg Tablet PO Q
[2021-11-12 10:44] LABS: Alanine Aminotransferase 30 U/L (4-35); Albumin Level 2.9 g/dL (3.5-5.1); Alkaline Phosphatase 85 U/L (38-126); Anion Gap 9 mmol/L (8-16); Aspartate Amino Transferase 36 U/L (14-36); Bilirubin,Total 0.5 mg/dL (0.2-1.3); Blood Urea Nitrogen 24 mg/dL (7-17); Calcium 8.1 mg/dL (8.4-10.2); Carbon Dioxide 24 mmol/L (22-30); Chloride 104 mmol/L (98-107); Estimated CRCL calculation 34 ml/min; Estimated Glomerular Filt Rate 39; Glucose 169 mg/dL (65-110); Potassium 3.1 mmol/L (3.4-5.0); Sodium 137 mmol/L (137-145)
[2021-11-12] MEDS: amLODIPine BESYLATE 5 MG TABLET PO (11:08)
[2021-11-12 12:17] LABS: Glucose Point of Care 115 mg/dl (65-105)
[2021-11-12 14:00] VITALS: BP 122/76; PULSE 77; RESP 18; TEMP 36.1; O2SAT 92
[2021-11-12] MEDS: ERTAPENEM SODIUM 0.5 GM in SODIUM CHLORIDE 0.9% IV 50 ML IVPB (17:57)
[2021-11-12] MEDS: INSULIN ASPART (*BKC) 100 UNITS/ML SUB-Q (18:26)
[2021-11-12 18:34] LABS: Glucose Point of Care 227 mg/dl (65-105)
[2021-11-12 22:37] VITALS: PULSE 60
[2021-11-12 22:50] VITALS: BP 120/53; PULSE 77; RESP 20; TEMP 36.3; O2SAT 93
[2021-11-13 05:21] VITALS: O2SAT 93
[2021-11-13] MEDS: metroNIDAZOLE 500 MG/ISO 100ML 500 MG/100 ML BAG 100 MG IVPB ×3 (06:12→21:22)
[2021-11-13] MEDS: SODIUM CHLORIDE 0.9% IV 1,000 ML 125 ML IV CONT (06:12)
[2021-11-13 06:19] VITALS: BP 138/75; PULSE 53; RESP 18; TEMP 36.4; O2SAT 92
[2021-11-13 08:01] LABS: Glucose Point of Care 118 mg/dl (65-105)
[2021-11-13 08:47] VITALS: PULSE 74
[2021-11-13] MEDS: METOPROLOL TARTRATE 25 MG TABLET PO ×2 (08:47→20:18)
[2021-11-13] MEDS: FAMOTIDINE 20 MG TABLET PO ×2 (08:48→20:18)
[2021-11-13] MEDS: amLODIPine BESYLATE 5 MG TABLET PO (08:48)
[2021-11-13] MEDS: SIMVASTATIN 20 MG TABLET 40 MG PO (08:48)
[2021-11-13] MEDS: HEPARIN SODIUM 5,000 UNITS/ML VIAL 5000 UNITS SUB-Q (08:50)
[2021-11-13 09:45] LABS: Basophils Absolute Auto 0.1 K/mm3 (0.0-0.1); Basophils Percent Auto 0.8 % (0.2-1.2); Eosinophils Absolute Auto 0.2 K/mm3 (0-0.3); Eosinophils Percent Auto 1.8 % (0-4.4); Hematocrit 37.6 % (37.0-47.0); Hemoglobin 12.3 g/dL (12.0-15.0); Immature Granulocyte Absolute 0.18 K/mm3 (0.00-0.031); Immature Granulocyte Percent A 1.4 % (0-0.5); Lymphocytes Absolute Auto 1.95 K/mm3 (0.9-3.2); Lymphocytes Percent Auto 15.2 % (18.3-44.2); Mean Corpuscular HGB Conc 32.7 g/dl (32-36); Mean Corpuscular Hemoglobin 30.8 pg (26-34); Mean Corpuscular Volume 94.2 fl (80-100); Mean Platelet Volume 11.2 fl (7.4-10.4); Monocytes Absolute Auto 1.3 K/mm3 (0.1-0.6); Monocytes Percent Auto 10.1 % (2.6-8.5); Neutrophils Absolute Auto 9.1 K/mm3 (1.3-6.7); Neutrophils Percent Auto 70.7 % (45.5-73.1); Platelet Count Result 422 k/mm3 (150-375); Red Blood Count 3.99 M/mm3 (4.2-5.4); Red Cell Distribution Width 14.2 % (11.5-14.5); White Blood Count 12.8 K/mm3 (4.5-10.0)
[2021-11-13 10:07] LABS: Alanine Aminotransferase 28 U/L (4-35); Albumin Level 3.3 g/dL (3.5-5.1); Alkaline Phosphatase 98 U/L (38-126); Anion Gap 8 mmol/L (8-16); Aspartate Amino Transferase 31 U/L (14-36); Bilirubin,Total 0.5 mg/dL (0.2-1.3); Blood Urea Nitrogen 23 mg/dL (7-17); Calcium 8.6 mg/dL (8.4-10.2); Carbon Dioxide 26 mmol/L (22-30); Chloride 102 mmol/L (98-107); Estimated CRCL calculation 32 ml/min; Estimated Glomerular Filt Rate 36; Glucose 137 mg/dL (65-110); Potassium 3.1 mmol/L (3.4-5.0); Sodium 136 mmol/L (137-145)
[2021-11-13 11:27] LABS: Glucose Point of Care 210 mg/dl (65-105)
[2021-11-13] MEDS: INSULIN ASPART (*BKC) 100 UNITS/ML SUB-Q (12:31)
[2021-11-13] MEDS: POTASSIUM CHLORIDE 20 MEQ TABLET 40 MEQ PO (13:17)
[2021-11-13 14:00] VITALS: BP 126/74; PULSE 70; RESP 14; TEMP 37; O2SAT 96
--- NOTE | 2021-11-13 14:36 | PM.IMPN ---
Progress Note: A&P Assessment and Plan (1) OVI (acute kidney injury): Code(s): N17.9 - Acute kidney failure, unspecified Status: Acute Assessment and Plan: Most likely related to dehydration give IV fluid . OVI has resolved (2) Acute UTI: Code(s): N39.0 - Urinary tract infection, site not specified Status: Acute Assessment and Plan: Culture positive for E coli Sensitive to ceftriaxone. Currently on ertapenem. (3) Acute diarrhea: Code(s): R19.7 - Diarrhea, unspecified Status: Acute Assessment and Plan: Rule out C diff colitisWhich came back negative GI recommendation appreciated CT scan of the abdomen no evidence of colitis Continue Flagyl Salmonella shigella/Campylobacter/ Cryptosporidium/Giardia came back negative (4) Hypotension: Code(s): I95.9 - Hypotension, unspecified Status: Acute Assessment and Plan: Most likely related to dehydration resolved (5) Weakness: Code(s): R53.1 - Weakness Status: Acute Assessment and Plan: PT OT eval (6) Type 2 diabetes mellitus with stage 3a chronic kidney disease: Code(s): E11.22 - Type 2 diabetes mellitus with diabetic chronic kidney disease; N18.31 - Chronic kidney disease, stage 3a Status: Acute Assessment and Plan: Insulin sliding scale (7) Hypertensive chronic kidney disease: Code(s): I12.9 - Hypertensive chronic kidney disease with stage 1 through stage 4 chronic kidney disease, or unspecified chronic kidney disease Status: Acute Assessment and Plan: Associated with acute renal failure improved (8) Essential (primary) hypertension: Code(s): I10 - Essential (primary) hypertension Status: Acute Assessment and Plan: Continue current treatment hypotension has resolved (9) Mixed hyperlipidemia: Code(s): E78.2 - Mixed hyperlipidemia Status: Acute Assessment and Plan: Continue home medication Anticipate discharge in the next 24-48 hours after final culture Additional Plan # diarrhea check stool studies check ESR CRP. Check lactic acid is elevated will get CT abdomen and pelvis . ESR is normal lactic acid is normal. CRP was elevated at 6.8. # generalized weakness hypotensive on arrival improved with IV hydration likely due to ongoing hypovolemia from diarrhea COVID came back negative in the ER # hypotension likely due to hypovolemia check lactic acid hold blood pressure medication. This is resolved # leukocytosis likely due to infectious diarrhea empiric IV Zosyn. Pancultured in the ER blood cultures been negative. Leukocytosis continues to improve # OVI on CKD stage 3 creatinine of 2.4 baseline creatinine 1 IV fluid # elevated liver enzymes continue to monitor hold statin LFTs has normalized # UTI IV Zosyn follow urine culture. antibiotic was switched to ertapenem. ESBL noted in the urine culture will switch back to ceftriaxone # COVID negative chest x-ray negative # diabetes mellitus type 2 SSI well controlled # former smoker quit in 2002 # DVT prophylaxis heparin subQ # code status full code Subjective Date/time seen: 11/13/21 14:36 Interval history: Patient presented to the hospital with abdominal pain generalized weakness nausea Was found to have acute renal failure probable infectious colitis admitted for further evaluation and treatment Patient feels weak complains of abdominal pain CT scan of the abdomen was done showed nephrolithiasis associated with left side moderate hydro nephrosis urology was consulted stent was placed on 11/11/2021 urine culture is growing E coli Patient also has diarrhea GI was consulted stool cultures pending continue Flagyl Currently patient is on ertapenem for UTI and Flagyl for diarrhea pending culture final culture Patient denies fever headache chest pain shortness of breath 11/13/2021 feeling well. Diarrhea slowed down. Denies any pain. No shortness of breath chest pain.
[2021-11-13 16:03] LABS: Glucose Point of Care 91 mg/dl (65-105)
[2021-11-13 22:00] VITALS: BP 131/75; PULSE 70; RESP 18; TEMP 36.6; O2SAT 93
--- NOTE | 2021-11-14 03:45 | PC.NURSE ---
Patient was found in another patient's room and was refusing to return to her room. Patient was also refusing to go to her bed or sit in a chair with an alarm. Had to call patient's family to have them talk to her to convince to sit in a chair with an alarm.
[2021-11-14] MEDS: metroNIDAZOLE 500 MG/ISO 100ML 500 MG/100 ML BAG 100 MG IVPB (05:15)
[2021-11-14 06:00] VITALS: BP 137/80; PULSE 81; RESP 18; TEMP 36.5; O2SAT 93
[2021-11-14 07:57] LABS: Basophils Absolute Auto 0.1 K/mm3 (0.0-0.1); Basophils Percent Auto 0.8 % (0.2-1.2); Eosinophils Absolute Auto 0.1 K/mm3 (0-0.3); Eosinophils Percent Auto 0.8 % (0-4.4); Hematocrit 41.4 % (37.0-47.0); Hemoglobin 13.2 g/dL (12.0-15.0); Immature Granulocyte Absolute 0.25 K/mm3 (0.00-0.031); Immature Granulocyte Percent A 1.7 % (0-0.5); Lymphocytes Absolute Auto 2.28 K/mm3 (0.9-3.2); Lymphocytes Percent Auto 15.7 % (18.3-44.2); Mean Corpuscular HGB Conc 31.9 g/dl (32-36); Mean Corpuscular Hemoglobin 30.1 pg (26-34); Mean Corpuscular Volume 94.3 fl (80-100); Mean Platelet Volume 11.1 fl (7.4-10.4); Monocytes Absolute Auto 1.2 K/mm3 (0.1-0.6); Neutrophils Absolute Auto 10.6 K/mm3 (1.3-6.7); Platelet Count Result 462 k/mm3 (150-375); Red Blood Count 4.39 M/mm3 (4.2-5.4); Red Cell Distribution Width 14.3 % (11.5-14.5); White Blood Count 14.5 K/mm3 (4.5-10.0)
[2021-11-14] MEDS: FAMOTIDINE 20 MG TABLET PO (08:25)
[2021-11-14] MEDS: ERGOCALCIFEROL 50,000 UNIT CAPSULE 50000 UNITS PO (08:25)
[2021-11-14] MEDS: SIMVASTATIN 20 MG TABLET 40 MG PO (08:25)
[2021-11-14 08:26] VITALS: PULSE 80
[2021-11-14] MEDS: HEPARIN SODIUM 5,000 UNITS/ML VIAL 5000 UNITS SUB-Q (08:26)
[2021-11-14] MEDS: METOPROLOL TARTRATE 25 MG TABLET PO (08:26)
[2021-11-14] MEDS: amLODIPine BESYLATE 5 MG TABLET PO (08:26)
[2021-11-14 08:54] LABS: Glucose Point of Care 182 mg/dl (65-105)
[2021-11-14] MEDS: HYDROcodone/acetaminophen (*CRX) 5-325 MG TABLET 1 TAB PO (09:01)
[2021-11-14 10:30] LABS: Alanine Aminotransferase 23 U/L (4-35); Albumin Level 2.9 g/dL (3.5-5.1); Alkaline Phosphatase 93 U/L (38-126); Anion Gap 6 mmol/L (8-16); Aspartate Amino Transferase 24 U/L (14-36); Bilirubin,Total 0.3 mg/dL (0.2-1.3); Blood Urea Nitrogen 21 mg/dL (7-17); Calcium 8.9 mg/dL (8.4-10.2); Carbon Dioxide 26 mmol/L (22-30); Chloride 104 mmol/L (98-107); Estimated CRCL calculation 37 ml/min; Estimated Glomerular Filt Rate 43; Glucose 255 mg/dL (65-110); Potassium 3.5 mmol/L (3.4-5.0); Sodium 136 mmol/L (137-145)
[2021-11-14 10:35] LABS: Magnesium 1.4 mg/dL (1.6-2.3)
[2021-11-14 11:54] LABS: Glucose Point of Care 161 mg/dl (65-105)
--- NOTE | 2021-11-14 12:14 | PM.DS ---
DS: Admitting Diagnosis Discharge Date 11/14/2021 Admitting Diagnosis diarrhea, UTI DS: Discharge Diagnosis Discharge Diagnosis (1) OVI (acute kidney injury): Code(s): N17.9 - Acute kidney failure, unspecified Status: Acute Assessment and Plan: Most likely related to dehydration give IV fluid . OVI has resolved. benazepril/hctz stopped and will stop it at discr as well. Cr 1.2 at discge. (2) Acute UTI: Code(s): N39.0 - Urinary tract infection, site not specified Status: Acute Assessment and Plan: Culture positive for E coli Sensitive to ceftriaxone. Currently on ertapenem. switch to cipro at dischage for 5 more days. (3) Acute diarrhea: Code(s): R19.7 - Diarrhea, unspecified Status: Acute Assessment and Plan: Rule out C diff colitisWhich came back negative GI recommendation appreciated CT scan of the abdomen no evidence of colitis Continue Flagyl Salmonella shigella/Campylobacter/ Cryptosporidium/Giardia came back negative cipro and flagyl at discr. (4) Hypotension: Code(s): I95.9 - Hypotension, unspecified Status: Acute Assessment and Plan: Most likely related to dehydration resolved (5) Weakness: Code(s): R53.1 - Weakness Status: Acute Assessment and Plan: PT OT eval and clearedd for discharge. (6) Type 2 diabetes mellitus with stage 3a chronic kidney disease: Code(s): E11.22 - Type 2 diabetes mellitus with diabetic chronic kidney disease; N18.31 - Chronic kidney disease, stage 3a Status: Acute Assessment and Plan: Insulin sliding scale (7) Hypertensive chronic kidney disease: Code(s): I12.9 - Hypertensive chronic kidney disease with stage 1 through stage 4 chronic kidney disease, or unspecified chronic kidney disease Status: Acute Assessment and Plan: Associated with acute renal failure improved (8) Essential (primary) hypertension: Code(s): I10 - Essential (primary) hypertension Status: Acute Assessment and Plan: Continue current treatment hypotension has resolved (9) Mixed hyperlipidemia: Code(s): E78.2 - Mixed hyperlipidemia Status: Acute Assessment and Plan: Continue home medication DS: Summary Hospital Course Hospital Course: see above. Time Spent with Patient Time attestation: Total time spent providing and/or coordinating discharge services: 45 mins Exam Narrative: APPEARANCE: Well appearing, no pain, no distress, well-nourished. HEAD: normocephalic, atraumatic. EYES: PERRLA/EOMI, conjunctivae clear. NOSE: Normal no drainage NECK: Supple. No adenopathy, no masses. RESPIRATORY: Airway patent, respirations nonlabored. CARDIOVASCULAR: Regular rate and rhythm without murmurs rubs or gallops. ABDOMINAL: Soft, mild tender lower abdomen, nondistended, normal bowel sounds MUSCULOSKELETAL: Moves all extremities. Strength/ROM intact, No edema, No calf tenderness. NEURO: Alert. Cranial nerves II through XII intact. SKIN: Warm, dry. Normal Color DS: Data Data Completed and Pending Labs on day of discharge: Labs from last 24 hours 11/14/21 11/14/21 11/14/21 11:46 09:50 09:50 WBC RBC Hgb Hct MCV MCH MCHC RDW Plt Count MPV Immature Gran % (Auto) Neut % (Auto) Lymph % (Auto) Runnels % (Auto) Eos % (Auto) Baso % (Auto) Lymph # (Auto) Runnels # (Auto) Eos # (Auto) Baso # (Auto) Abs Immat Gran (auto) Absolute Neuts (auto) Absolute Nucleated RBC Nucleated RBC % Sodium 136 L Potassium 3.5 Chloride 104 Carbon Dioxide 26 Anion Gap 6 L BUN 21 H Creatinine 1.20 H Estim Creat Clear Calc 37 Estimated GFR 43 L Glucose 255 H POC Capillary Glucose 161 H Calcium 8.9 Magnesium 1.4 L Total Bilirubin 0.3 AST 24 ALT 23 Alkaline Phosphatase 93 Total Protein 5.0 L Albumin 2.9 L 01
--- NOTE | 2021-11-14 16:54 | PC.NURSE ---
Patient's daughter called noting that no [facility] pharmacy in the area has Ciprofloxacin available. This nurse notified the discharging physician. New order received for Levofloxacin 750 mg po daily x 5 days. Electronically sent new script to pharmacy.
== END 2021-11-14 13:32 | disposition home or self-care (01) | DRG 661 ==
LOC: ANHED 21:23 → ANH3MEDSUR 21:41
PROVIDERS: Emergency Medicine; Internal Medicine; Urology; Admitting Provider Internal Medicine; Emergency Provider Emergency Medicine; PCP Family Medicine; Visit Provider Internal Medicine
PROC: BT1F1ZZ Fluoroscopy of Left Kidney, Ureter and Bladder using Low Osmolar Contrast (ICD-10-PCS; CPT 52352; principal; 2021-11-11 13:45)
DX: N17.9 Acute kidney failure, unspecified (principal); N13.6 Pyonephrosis; Z87.891 Personal history of nicotine dependence; Z85.42 Personal history of malignant neoplasm of other parts of uterus; Z20.822 Contact with and (suspected) exposure to COVID-19; Z90.710 Acquired absence of both cervix and uterus; E86.0 Dehydration; I95.9 Hypotension, unspecified; E11.22 Type 2 diabetes mellitus with diabetic chronic kidney disease; I12.9 Hypertensive chronic kidney disease with stage 1 through stage 4 chronic kidney disease, or unspecified chronic kidney disease; N18.31 Chronic kidney disease, stage 3a; Z79.4 Long term (current) use of insulin; E78.2 Mixed hyperlipidemia; E86.1 Hypovolemia; B96.20 Unspecified Escherichia coli [E. coli] as the cause of diseases classified elsewhere; R19.7 Diarrhea, unspecified
CPT/HCPCS: 36415; 71045; 74018; 74176; 74420; 80053; 81001; 82948; 83605; 83735; 85025; 85652; 86140; 87015; 87040; 87045; 87077; 87086; 87177; 87186; 87209; 87269; 87272; 87427; 87493; 89055; 93005; 96361; 96365; 96366; 96367; 96372; 97161; 97165; 99285; A9270; C2617; C9803; G0378; J0696; J1100; J1335; J1644; J1815; J2405; J2543; J2704; J3010; J7030; J7120; U0003; U0005

== ENCOUNTER 2021-11-26 16:00 | Outpatient (CLI) | payer OTHER, SELFPAY ==
--- NOTE | ~2021-11-26 | XR_ITS ---
EXAMINATION: XR abdomen/kub 1V DATE: 11/26/2021 16:28 INDICATION: Left ureteral stone. TECHNIQUE: A supine view of the abdomen on 2 radiographs was obtained. COMPARISON: CT abdomen and pelvis 11/11/2021 FINDINGS: There are no dilated loops of bowel. There is a left internal ureteral stent in expected po sition. There is an 8 mm stone in left kidney. IMPRESSION: 1. 8 mm stone in left kidney. 2. Left internal ureteral stent in expected position. Reviewed, dictated and finalized at location E. ET SLITTER
== END 2021-11-26 16:01 | disposition home or self-care (01) ==
LOC: ANHIMG 16:08
PROVIDERS: PCP Family Medicine; Visit Provider Urology
DX: N20.2 Calculus of kidney with calculus of ureter (principal)
CPT/HCPCS: 74018

== ENCOUNTER 2021-12-20 11:22 | Outpatient (CLI) | payer OTHER, SELFPAY ==
[2021-12-20 12:07] LABS: Prothrombin Time 12.4 Seconds (11.1-14.7)
[2021-12-20 12:08] LABS: Partial Thromboplastin Time 28.7 SECONDS (22.3-36.8)
[2021-12-20 12:13] LABS: Anion Gap 7 mmol/L (8-16); Blood Urea Nitrogen 18 mg/dL (7-17); Carbon Dioxide 30 mmol/L (22-30); Chloride 102 mmol/L (98-107); Estimated Glomerular Filt Rate 60; Glucose 137 mg/dL (65-110); Potassium 3.6 mmol/L (3.4-5.0); Sodium 139 mmol/L (137-145)
== END 2021-12-20 11:23 | disposition home or self-care (01) ==
LOC: ANHSURGERY 11:27
PROVIDERS: Anesthesiology; PCP Family Medicine; Visit Provider Urology
DX: N20.1 Calculus of ureter (principal); E11.9 Type 2 diabetes mellitus without complications; Z01.818 Encounter for other preprocedural examination
CPT/HCPCS: 36415; 80048; 85610; 85730; 87086; 87088

== ENCOUNTER 2021-12-24 02:19 | Day surgery (SDC) | payer OTHER, SELFPAY ==
[2021-12-13 14:26] VITALS: BMI 32.3
--- NOTE | 2021-12-13 14:45 | PC.NURSE ---
Report to the Outpatient Waiting Room, entrance under the green pavilion located off [facility], at time _0700_ on date _12/24/21_. OR Time: _0900__. - You and your visitor will be asked a series of questions to screen for COVID 19 for your protection. - A mask is required within the hospital. One visitor will be allowed to accompany the patient into the hospital. Patients visitor will be instructed to remain with patient at all times or leave the building. We will allow the visitor to come back to the postoperative area when patient is ready. Preoperative COVID Testing Requirements: NONE Patients may have clear liquids (water, carbonated beverages, clear teas, apple juice) until 3 hours prior to surgery (0600 AM) with a maximum of 20 ounces. - No food from midnight until time of surgery Take the following medications with a SIP of water the morning of surgery: _AMLODIPINE, METOPROLOL_ Medications to discontinue per DR. OSULLIVAN _ASPIRIN, ALL VITAMINS & SUPPLEMENTS 7 DAYS PRIOR TO SURGERY, Date to take last dose 12/16/21 Please no make-up, nail [place], hairspray, perfume, deodorant, or body powder the day of surgery. No jewelry (including any body piercings) or valuables the day of surgery, leave them at home. Please take a shower or bath the night before, or the morning of, surgery with an antibacterial soap. Wear comfortable, loose fitting clothing. - Jewelry must be removed prior to entering the operating room. Rings and piercings that are not removed may be cut off. - The hospital will not accept responsibility for valuables. - Please leave all valuables, including medications, at home the day of surgery. If you are going home after surgery, a licensed helper/driver must drive you home. - NO public transportation without another adult. - We recommend that an adult stay with you for 24 hours following discharge. - We also recommend that you do not drive, make important decision, drink alcoholic beverages, or take any drugs that were not prescribed by your health care provider for at least 24 hours after your discharge time. Follow any additional instructions given to you from your surgeon. Telephone instructions given to ____PT and asked if any additional questions and then verbalized understanding. Patient advised to call surgeon office or pre surgery nurse liaison [phone] if any additional questions.
[2021-12-24] VITALS (7 sets, daily range): BP systolic 129–145; BP diastolic 70–84; PULSE 71–77; RESP 13–19; TEMP 36.2–36.6; O2SAT 95–100; BMI 32.4
--- NOTE | ~2021-12-24 | XR_ITS ---
EXAMINATION: XR abdomen/kub 1V DATE: 12/24/2021 07:01 INDICATION: Urolithiasis. TECHNIQUE: A supine view of the abdomen on 2 radiographs was obtained. COMPARISON: Abdomen radiographs 11/26/2021, CT abdomen and pelvis 11/11/2021 FINDINGS: There are no dilated loops of bowel. There is a left internal ureteral stent in expected po sition. There is a phlebolith in right pelvis. The kidneys are obscured by bowel. There is an [address] one in left kidney lower pole. IMPRESSION: 1. 8 mm stone in left kidney. 2. Left internal ureteral stent in expected position. Reviewed, dictated and finalized at location A. LLMENT ADVISOR
--- NOTE | 2021-12-24 06:32 | WPDHPUPDATE1 ---
History and Physical Update Update Date/Time: 12/24/21 06:32 History and Physical has been reviewed, including an updated exam of the patient. There are NO changes in the patient's condition. Risks, benefits, and alternatives have been discussed and questions answered. Patient agrees to proceed with procedure.
[2021-12-24] MEDS: LACTATED RINGERS 1,000 ML 30 ML IV CONT (07:40)
[2021-12-24 07:47] LABS: Glucose Point of Care 157 mg/dl (65-105)
--- NOTE | 2021-12-24 08:04 | WPDANESEPPF ---
Anes - Initial Pre Proc Eval Procedure: Operation Date: 12/24/21 09:00 Proposed Procedures p Left Renal Extracorporeal Shock Wave Lithotripsy - Freddie Pichardo MD Date/Time: 12/24/21 08:04 Surgeon: Freddie Pichardo MD Pre Op Diagnosis: left renal stone Patient Data Age: 81 Gender: F Height: 1.68 m Weight: 91.2 kg Last Vital Signs Temp 36.6 C 12/24/21 07:29 Pulse 77 12/24/21 07:29 Resp 16 12/24/21 07:29 BP 145/76 H 12/24/21 07:29 Pulse Ox 95 12/24/21 07:29 Allergies Allergy/AdvReac Type Severity Reaction Status Date / Time No Known Allergies Allergy Verified 12/24/21 07:07 Home Medications Medication Instructions Recorded Confirmed Type cholecalciferol (vitamin D3) 1,250 1,250 mcg PO WEEKLY #12 cap 09/19/21 12/24/21 Rx mcg (50,000 unit) capsule amlodipine 5 mg tablet 5 mg PO DAILY #90 tablet 10/05/21 12/24/21 Rx metoprolol tartrate 25 mg tablet 25 mg PO BID #180 tablet 10/22/21 12/24/21 Rx simvastatin 40 mg tablet 40 mg PO DAILY #90 tablet 10/22/21 12/24/21 Rx famotidine 20 mg tablet 20 mg PO BID #180 tablet 10/27/21 12/24/21 Rx blood sugar diagnostic #50 ea 11/22/21 11/22/21 Rx blood-glucose meter #1 ea 11/22/21 11/22/21 Rx lancets #100 ea 11/22/21 11/22/21 Rx aspirin See Rx Instructions .ROUTE .COMPLEX 12/13/21 12/24/21 History vit C,B-Xz-buwvs-lutein-zeaxan 1 tablet PO BID 12/13/21 12/24/21 History [PreserVision AREDS-2] metformin 500 mg tablet See Rx Instructions .ROUTE 12/20/21 Rx .COMPLEX #270 tablet Laboratory Tests 12/24/21 07:39 POC Capillary Glucose 157 mg/dl H mg/dl (65-105) Patient hx anesthesia problems: none Family hx anesthesia problems: none Results Review: All pre-operative results and documents have been reviewed as part of the pre-operative evaluation. 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 Mixed hyperlipidemia Obesity Primary osteoarthritis of both knees Type 2 diabetes mellitus without complication, without long-term current use of insulin Surgical History Surgical History History of total hysterectomy Family History Family History Mother Hypertension Family history of cardiovascular disease Father Cerebrovascular accident, Onset Age: 69 Sibling Family history of malignant neoplasm, Onset Age: 75 Social History Social History Smoking packs per day: 2 Smoking cigarettes per day: 40.0 Years smoked: 50 Smoking pack-years: 100.00 Smoking status: Former smoker Tobacco type: cigarettes Second hand tobacco smoke exposure: No Smoking end date: 10/16/02 Alcohol intake: current Alcohol use details: STATES 1 DRINK/MONTH Substance use: never Substance use type: does not use Living arrangements: alone Gender identity (if verbalized by the patient): Female Sexual Orientation (if Verbalized by the Patient): Straight or Heterosexual Spiritual care concerns: No Anes - Eval Final PreProcedure Day of Procedure 12/24/21 08:04 Patient weight: overweight Heart: regular rate and rhythm Lungs: decreased breath sounds Airway: Mallampati scale class II Neurological: other (alert) Last oral intake: >/= 8 hours ASA classification: III Emergent: no Anesthetic plan: proceed Anesthesia type and monitoring: general LMA and standard monitoring Results Review: All pre-operative results and documents have been reviewed as part of the pre-operative evaluation. Informed Consent: The patient's anesthetic plan and its attendant risks and benefits were di
[2021-12-24] MEDS: ceFAZolin 2 GM/D5W 50 ML 2 GM/50 ML BAG IVPB (08:45)
[2021-12-24 09:51] LABS: Glucose Point of Care 147 mg/dl (65-105)
--- NOTE | 2022-01-03 08:06 | OP_ITS ---
This report was moved to the correct visit on 01/04/22.? The original document was signed by Freddie Pichardo MD on 01/03/22805 and addendum was made on 01/03/22818. ADDENDUM This procedure was performed on 12/24/2021 Addendum Documented By: Freddie Pichardo MD 01/03/22818 Addendum Signed By: <Electronically signed by Freddie Pichardo MD>01/03 Procedure Note - Detailed Date of Procedure 01/03/22 Pre-op Diagnosis Left ureteal stone Post-op Diagnosis Same Procedure Performed Cystoscopy, left ureteral stent removal, left ESWL Surgeon Freddie Pichardo MD Description of Procedure The patient was brought to the operative suite where she was placed in the frog- legged position on the Dornier lithotripter table. Flexible cystoscopy was undertaken with a 16F flexible cystoscopy. Her urethra and bladder neck were endoscopically normal. The bladder mucosa was normal and there was a single, orthotopic ureteral orifice bilaterally. the tip of the indwelling stent was grasped and the stent is removed with ease.The patient was then repositioned in the supine position and the focal point of the lithotriptor was placed at a 8mm left renal calculus. A total of 2500 shocks were delivered at a power setting of . There appeared to be good fragmentation of the stone. The patient tolerated the procedure well and was taken to the recovery room in good condition. Drains No Packing No Pathology None sent Complications No immediate complications Condition Stable Disposition PACU This dictation may have been done utilizing a voice recognition system. Attempts have been made to correct errors. However, there may be uncorrected grammatical, spelling, and recognition errors present. Report Initialized date/time: Freddie Pichardo MD 01/03/22805 Electronically signed by: Freddie Pichardo MD 01/03/22805 [facility]
== END 2021-12-24 11:24 | disposition home or self-care (01) ==
PROVIDERS: PCP Family Medicine; Visit Provider Urology
PROC: (CPT 50590; principal; 2021-12-24 09:00)
DX: N20.1 Calculus of ureter (principal); I12.9 Hypertensive chronic kidney disease with stage 1 through stage 4 chronic kidney disease, or unspecified chronic kidney disease; E11.22 Type 2 diabetes mellitus with diabetic chronic kidney disease; N18.9 Chronic kidney disease, unspecified; H35.3132 Nonexudative age-related macular degeneration, bilateral, intermediate dry stage; E78.2 Mixed hyperlipidemia; M17.12 Unilateral primary osteoarthritis, left knee; Z85.42 Personal history of malignant neoplasm of other parts of uterus; Z79.84 Long term (current) use of oral hypoglycemic drugs; E66.9 Obesity, unspecified; Z68.32 Body mass index [BMI] 32.0-32.9, adult; Z87.891 Personal history of nicotine dependence
CPT/HCPCS: 50590; 36415; 74018; 80048; 82948; 85610; 85730; 87086; 87088; A9270; J0690; J2704; J7120

== ENCOUNTER 2021-12-31 11:25 | Outpatient (CLI) | payer OTHER, SELFPAY ==
--- NOTE | ~2021-12-31 | XR_ITS ---
XR abdomen/kub 1V 12/31/2021 11:55 Indication: Ureteral stone. Procedure: KUB Comparison: 12/24/2021 Findings: Bowel gas pattern nonobstructive. Moderate colonic fecal loading. There is left renal stone s. Interval removal of left internal ureteral stent. There are splenic artery calcifications. Moderat e-severe lumbar spondylosis. Mild compression deformity of L1, age indeterminate. Impression: 1: Left nephrolithiasis. Reviewed, dictated and finalized at location B. Impression: 1: Left nephrolithiasis.
--- NOTE | 2022-01-03 08:04 | P.OP_ITS ---
Procedure Note - Detailed Date of Procedure 01/03/22 Pre-op Diagnosis Left ureteal stone Post-op Diagnosis Same Procedure Performed Cystoscopy, left ureteral stent removal, left ESWL Surgeon Freddie Pichardo MD Description of Procedure The patient was brought to the operative suite where she was placed in the frog- legged position on the Dornier lithotripter table. Flexible cystoscopy was undertaken with a 16F flexible cystoscopy. Her urethra and bladder neck were endoscopically normal. The bladder mucosa was normal and there was a single, orthotopic ureteral orifice bilaterally. the tip of the indwelling stent was grasped and the stent is removed with ease.The patient was then repositioned in the supine position and the focal point of the lithotriptor was placed at a 8mm left renal calculus. A total of 2500 shocks were delivered at a power setting of . There appeared to be good fragmentation of the stone. The patient tolerated the procedure well and was taken to the recovery room in good condition. Drains No Packing No Pathology None sent Complications No immediate complications Condition Stable Disposition PACU
== END 2021-12-31 11:26 | disposition home or self-care (01) ==
LOC: ANHIMG 11:35
PROVIDERS: PCP Family Medicine; Visit Provider Urology
DX: N20.0 Calculus of kidney (principal)
CPT/HCPCS: 74018

== ENCOUNTER 2022-04-06 08:36 | Outpatient (CLI) | payer OTHER, SELFPAY ==
--- NOTE | ~2022-04-06 | XR_ITS ---
EXAMINATION: XR chest 2V DATE: 04/06/2022 08:50 INDICATION: Productive cough TECHNIQUE: PA and lateral views of the chest are obtained. COMPARISON: 11/10/2021 FINDINGS: The lungs are free of acute opacities. There are small pleural effusions. No pneumothorax i s identified. Cardiomegaly is noted. There is severe thoracic spondylosis. IMPRESSION: 1. Cardiomegaly. 2. Small pleural effusions. Reviewed, dictated and finalized at location A.
== END 2022-04-06 08:37 | disposition home or self-care (01) ==
LOC: ANHIMG 08:38
PROVIDERS: PCP Family Medicine; Visit Provider Family Medicine
DX: R09.89 Other specified symptoms and signs involving the circulatory and respiratory systems (principal); R05.9 Cough, unspecified; I51.7 Cardiomegaly; J90 Pleural effusion, not elsewhere classified
CPT/HCPCS: 71046

== ENCOUNTER 2022-07-11 14:17 | Outpatient (CLI) | payer OTHER, SELFPAY ==
--- NOTE | ~2022-07-11 | XR_ITS ---
XR abdomen/kub 1V 07/11/2022 14:41 INDICATION: Flank pain TECHNIQUE: KUB COMPARISON: 12/31/2021 FINDINGS: there is a left renal stone measuring 9 mm. Bowel gas pattern nonobstructive. Moderate dege nerative spondylosis lumbar spine. Lung bases unremarkable. Cardiomegaly. IMPRESSION: 1: Left nephrolithiasis. Reviewed, dictated and finalized at location B. IMPRESSION: 1: Left nephrolithiasis.
== END 2022-07-11 14:18 | disposition home or self-care (01) ==
PROVIDERS: PCP Family Medicine; Visit Provider Urology
DX: N20.0 Calculus of kidney (principal)
CPT/HCPCS: 74018

== ENCOUNTER 2022-10-02 11:33 | Emergency (ER) | payer OTHER, SELFPAY ==
--- NOTE | ~2022-10-02 | XR_ITS ---
EXAMINATION: XR chest 2V DATE: 10/02/2022 13:34 INDICATION: Cough and bradycardia TECHNIQUE: PA and lateral views of the chest are obtained. COMPARISON: 04/06/2022 FINDINGS: The lungs are free of acute opacities. There are small pleural effusions. Cardiomegaly is n oted. There is severe thoracic spondylosis. IMPRESSION: 1. Cardiomegaly. 2. Small pleural effusions. Reviewed, dictated and finalized at location A. CT MAIL CLERK
[2022-10-02 12:48] VITALS: BP 121/62; PULSE 85; RESP 16; TEMP 35.8; O2SAT 94
--- NOTE | 2022-10-02 13:17 | ED.GENADULT ---
HPI - General Adult General Chief complaint: Upper Respiratory Infection Stated complaint: Cough,Runny Nose,Shortness of Breath Time Seen by Provider: 10/02/22 13:17 Source: patient Mode of arrival: ambulatory Limitations: no limitations History of Present Illness HPI narrative: 82-year-old female patient presents to the [facility] with complaints of cough and shortness of breath for the past week. Patient denies any fevers, body aches or chills. Patient does have a history of being a former smoker and did quit in 2002. Patient does have history of COPD. Patient states she did have some Tessalon Perles at home but has not taken it but states that the last time this happened they helped really well with her cough. Patient denies any chest pain at this time. Denies any abdominal pain, nausea, vomiting or diarrhea. Patient is vaccinated against influenza and COVID. Related Data Home Medications Medication Instructions Recorded Confirmed aspirin 81 mg capsule See Rx Instructions .Route .COMPLEX 12/13/21 10/02/22 vit C 250 mg-vit E 90 mg-zinc 40 1 tablet PO BID 12/13/21 10/02/22 mg-copper 1 hw-ascfae-bfksmk capsule (PreserVision AREDS-2) Allergies Allergy/AdvReac Type Severity Reaction Status Date / Time No Known Allergies Allergy Verified 10/02/22 12:48 Review of Systems Review of Systems: CONSTITUTIONAL: Denies fever, chills, or sweats. EYES: Denies visual changes, redness, or discharge. ENT: Denies rhinorrhea, congestion, sore throat, or otalgia. CARDIOVASCULAR: Denies chest pain, palpitations, or edema. RESPIRATORY: positive cough Positive dyspnea. GASTROINTESTINAL: Denies abdominal pain, nausea, vomiting, or diarrhea. GENITOURINARY: Denies dysuria or hematuria. SKIN: Denies rash or itching. MUSCULOSKELETAL: Denies back pain, joint pain, or myalgia. NEUROLOGIC: Denies headache, numbness, or weakness. PSYCHIATRIC: Denies anxiety or depression. [facility] Past Medical History Medical History Arthritis Essential (primary) hypertension History of tobacco use History of uterine cancer Hypertensive chronic kidney disease 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 Mixed hyperlipidemia Obesity Primary osteoarthritis of both knees Type 2 diabetes mellitus without complication, without long-term current use of insulin Surgical History Surgical History History of total hysterectomy Family History Family History Mother Hypertension Family history of cardiovascular disease Father Cerebrovascular accident, Onset Age: 69 Sibling Family history of malignant neoplasm, Onset Age: 75 Social History Social History Social History: Smoking packs per day: 2 Smoking cigarettes per day: 40.0 Years smoked: 50 Smoking pack-years: 100.00 Smoking status: Former smoker Tobacco type: cigarettes Second hand tobacco smoke exposure: No Smoking end date: 10/16/02 Alcohol intake: current Alcohol use details: STATES 1 DRINK/MONTH Substance use: never Substance use type: does not use Gender identity (if verbalized by the patient): Female Sexual Orientation (if Verbalized by the Patient): Straight or Heterosexual Spiritual care concerns: No Comments At the time of my signature I agree with nursing past medical history, surgical, social, and family history. There is no relevant family history pertinent to the presenting complaint. Exam Narrative: GENERAL: Well-appearing, well-nourished, and in no acute distress. HEAD: Normocephalic, atraumatic. EYES: PERRLA and EOMI. ENT: Nares clear, no rhinorrhea or epistaxis. Mucous membranes moist. bilateral TMs are clear with no erythema or foreign bodies in the canal. Posterior p
[2022-10-02 13:41] VITALS: PULSE 85; RESP 18; O2SAT 94
[2022-10-02] MEDS: ALBUTEROL SULFATE NEB 2.5 MG/3 ML INH INHALATION (13:42)
[2022-10-02] MEDS: IPRATROPIUM BR 0.02% INH SOLN 0.5 MG/2.5 ML VIAL INHALATION (13:42)
[2022-10-02 14:00] VITALS: PULSE 65; RESP 18; O2SAT 96
== END 2022-10-02 14:05 | disposition home or self-care (01) ==
PROVIDERS: Emergency Provider Nurse Practitioner Family; PCP Family Medicine
DX: J06.9 Acute upper respiratory infection, unspecified (principal); Z20.822 Contact with and (suspected) exposure to COVID-19; Z87.891 Personal history of nicotine dependence; M19.90 Unspecified osteoarthritis, unspecified site; I12.9 Hypertensive chronic kidney disease with stage 1 through stage 4 chronic kidney disease, or unspecified chronic kidney disease; E11.22 Type 2 diabetes mellitus with diabetic chronic kidney disease; N18.9 Chronic kidney disease, unspecified; E78.2 Mixed hyperlipidemia; E66.9 Obesity, unspecified; Z68.31 Body mass index [BMI] 31.0-31.9, adult; M17.0 Bilateral primary osteoarthritis of knee; Z90.710 Acquired absence of both cervix and uterus; Z85.42 Personal history of malignant neoplasm of other parts of uterus
CPT/HCPCS: 71046; 87426; 94640; 99213; C9803; G0463

== ENCOUNTER 2023-01-10 11:42 | Outpatient (CLI) | payer OTHER, SELFPAY ==
--- NOTE | ~2023-01-10 | XR_ITS ---
EXAMINATION: XR abdomen/kub 1V INDICATION: Left ureteral stone TECHNIQUE: Supine views of the abdomen were obtained on 2 radiographs. COMPARISON: 07/11/2022 FINDINGS: There is an 8 mm stone of the left kidney lower pole. No additional urolithiasis is identif ied. The bowel gas pattern is normal. There is severe spondylosis of the lower lumbar spine. IMPRESSION: 1. Stable left nephrolithiasis. Reviewed, dictated and finalized at location F.
== END 2023-01-10 11:43 | disposition home or self-care (01) ==
LOC: ANHIMG 11:45
PROVIDERS: PCP Family Medicine; Visit Provider Urology
DX: N20.1 Calculus of ureter (principal)
CPT/HCPCS: 74018

== ENCOUNTER 2024-01-24 09:42 | Outpatient (CLI) | payer OTHER, SELFPAY ==
--- NOTE | ~2024-01-24 | XR_ITS ---
Supine and upright views of the abdomen Clinical history: Left ureteral stone Findings: Bowel gas pattern is nonspecific. No evidence for obstruction or free air. Left renal stone present. Osseous structures are intact. Impression: Left nephrolithiasis. Reviewed, dictated and finalized at location M. Impression: Left nephrolithiasis.
== END 2024-01-24 09:43 | disposition home or self-care (01) ==
LOC: ANHIMG 09:43
PROVIDERS: PCP Family Medicine; Visit Provider Urology
DX: N20.1 Calculus of ureter (principal)
CPT/HCPCS: 74018

== ENCOUNTER 2025-01-18 12:00 | Emergency (ER) | payer OTHER, SELFPAY ==
--- OUTSIDE RECORDS SUMMARY | 2025-01-18 12:06 | XMS_ITS | Encounter Summary ---
Author Organization [facility] Address [address] [place] [address] Care Team Providers Care Boilers Inspector Name Role Phone Unavailable Primary Care Provider Unavailabl e Encounter Details Date Type Department Care Team (Late st Contact Info) Description 04/01/2005 Outpatient Historical [facility] [address] 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
--- OUTSIDE RECORDS SUMMARY | 2025-01-18 12:06 | XMS_ITS | Clinical Summary ---
Author Organization [facility] Address [address] 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
--- OUTSIDE RECORDS SUMMARY | 2025-01-18 12:06 | XMS_ITS | Encounter Summary ---
[facility] Organization [facility] Address [address] [place] [address] Care Team Providers Care [place] Diver Name Role Phone Unavailable Primary Care Provider Unavailabl e Encounter Details Date Type Department Care Team (Late st Contact Info) Description 04/07/2005 Outpatient Historical [facility] Memo Culver MD [address] [place] [address] [facility] (Primary Dx) Social History Tobacco Use Types Packs/Day Years Used Date Smoking Tobacco: Never Assessed Comments Unknown Sex and Gender Information Value Date Recorded Sex Assigned at Not on file Legal Sex Female 2:47 AM [employer] Gender Identity Not on file Sexual Orientation Not on file documented as of this encounter Plan of Treatment Not on file documented as of this encounter Procedures Procedure Name Priority Date/Time Associated Diagnosis Comments HEMOGLOBIN AND HEMATOCRIT Routine 04/01/2005 4:19 PM CDT BASIC METABOLIC PANEL Routine 04/01/2005 4:19 PM CDT documented in this encounter Results * HEMOGLOBIN AND HEMATOCRIT (04/01/2005 4:19 PM CDT) HEMOGLOBIN 14.8 11.8 - 14.8 g/dL INTERFACE SYSTEM HEMATOCRIT 43.9 35.5 - 44.0 % INTERFACE SYSTEM 04/01/2005 4:19 PM CDT us Memo Culver MD HEMATOLOGY ORDERABLES Final Result INTERFACE SYSTEM Refer to clinic/hospital department * BASIC METABOLIC PANEL (04/01/2005 4:19 PM CDT) GLUCOSE 99 65 - 109 mg/dL INTERFACE SYSTEM CREATININE 1.0 0.4 - 1.2 mg/dL INTERFACE SYSTEM CALCIUM 10.1 8.6 - 10.2 mg/dL INTERFACE SYSTEM BUN 20 6 - 20 mg/dL INTERFACE SYSTEM SODIUM 142 135 - 145 mmol/L INTERFACE SYSTEM POTASSIUM 4.2 3.5 - 4.9 mmol/L INTERFACE SYSTEM CHLORIDE 103 96 - 108 mmol/L INTERFACE SYSTEM CO2 29 22 - 30 mmol/L INTERFACE SYSTEM 04/01/2005 4:19 PM CDT us Memo Culver MD CHEMISTRY ORDERABLES Final Result INTERFACE SYSTEM Refer to clinic/hospital department documented in this encounter Visit Diagnoses Diagnosis Derangement of posterior horn of medial meniscus- Primary documented in this encounter
--- NOTE | 2025-01-18 12:11 | ED_ITS ---
HPI - General Adult General Chief complaint: Skin/Abscess/Foreign Body Stated complaint: left knee wound Time Seen by Provider: 01/18/25 12:11 Source: patient Mode of arrival: ambulatory Limitations: no limitations History of Present Illness HPI narrative: 84-year-old female patient presents to the [facility] with complaints of a wound to the left knee for the past 2 days. Patient states that the wound is sore to the touch and states there was little blister on there but it did pop. Patient's daughter states that the wound was much smaller yesterday and has gotten bigger. Patient does have history of type 2 diabetes. Related Data Home Medications ?Medication ?Instructions ?Recorded ?Confirmed ?Last Taken ?Type aspirin 81 mg capsule See Rx Instructions .Route .COMPLEX 12/13/21 05/20/24 12/19/21 History vit C 250 mg-vit E 90 mg-zinc 40 1 tablet PO BID 12/13/21 05/20/24 12/17/21 History mg-copper 1 [id number] capsule (PreserVision AREDS-2) Allergies Allergy/AdvReac Type Severity Reaction Status Date / Time No Known Allergies Allergy Verified 01/18/25 12:17 Review of Systems Review of Systems: CONSTITUTIONAL: Denies fever, chills, or sweats. EYES: Denies visual changes, redness, or discharge. ENT: Denies rhinorrhea, congestion, sore throat, or otalgia. CARDIOVASCULAR: Denies chest pain, palpitations, or edema. RESPIRATORY: Denies cough or dyspnea. GASTROINTESTINAL: Denies abdominal pain, nausea, vomiting, or diarrhea. GENITOURINARY: Denies dysuria or hematuria. SKIN: Denies rash or itching. Positive wound to the left knee x2 days MUSCULOSKELETAL: Denies back pain, joint pain, or myalgia. NEUROLOGIC: Denies headache, numbness, or weakness. PSYCHIATRIC: Denies anxiety or depression. 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 History of tobacco use Hypertensive chronic kidney disease History of uterine cancer Arthritis Essential (primary) hypertension Mixed hyperlipidemia Primary osteoarthritis of both knees Type 2 diabetes mellitus without complication, without long-term current use of insulin Surgical History Surgical History History of total hysterectomy Family History Family History Mother Hypertension Family history of cardiovascular disease Father Cerebrovascular accident, Onset Age: 69 Sibling Family history of malignant neoplasm, Onset Age: 75 Social History Social History Social History: Smoking packs per day: 2 Smoking cigarettes per day: 40.0 Years smoked: 50 Smoking pack-years: 100.00 Smoking status: Former smoker Tobacco type: cigarettes Second hand tobacco smoke exposure: No Smoking end date: 10/16/02 Alcohol intake: current Alcohol use details: STATES 1 DRINK/MONTH Substance use: never Substance use type: does not use Do You Feel Safe in your Home?: Yes Lack of Transportation: No Lack of Food: Never True Current Housing: I Have Housing Concerned About Future Housing: No Difficulty Paying Gas/Electric Bills: No Difficulty Paying for Meds: No Currently Unemployed: YES Education: Don't Know Difficulty w/ Childcare or Family Care: No Living arrangements: alone Occupation/Education: retired Gender identity (if verbalized by the patient): Female Sexual Orientation (if Verbalized by the Patient): Straight or Heterosexual Spiritual care concerns: No Comments At the time of my signature I agree with nursing past medical history, surgical, social, and family history. There is no relevant family history pertinent to the presenting complaint. Exam Narrative: GENERAL: Well-appearing, well-nourished, and in no acute distress. HEAD: Normocephalic, atraumatic. EYES: PERRLA and EOMI. ENT: Nares clear, no rhinorrhea or epistaxis. Mucous membranes moist. NECK: Supple. No lymphadenopathy CHEST: Clear to auscultation. No respiratory distress. HEART: Regular rate and rhythm. No murmur heard. Normal peripheral pulses. ABDOMEN: Soft, nontender, nondistended, normal active bowel sounds. EXTREMITIES: Normal range of motion. No edema. SKIN: Warm, dry, no rash. patient has approximately 6.5 x 4.5 cm erythemic wound noted to the proximal left knee. There is a little bit of purulent discharge noted from the center area where appears that the blister has popped. Slight tenderness noted on palpation to the area. NEURO: No focal deficits. Alert and oriented x3. Course Course Level of Care: Express Care Visit Vital Signs Vital signs: Vital Signs Temperature 37.0 C 01/18/25 12:18 Pulse Rate 112 H 01/18/25 12:18 Respiratory Rate 17 01/18/25 12:18 Blood Pressure 134/59 L 01/18/25 12:18 Pulse Oximetry 94 01/18/25 12:18 Oxygen Delivery Room Air 01/18/25 12:18 Temperature 37.0 C 01/18/25 12:18 Pulse Rate 112 H 01/18/25 12:18 Respiratory Rate 17 01/18/25 12:18 Blood Pressure 134/59 L 01/18/25 12:18 Pulse Oximetry 94 01/18/25 12:18 Oxygen Delivery Room Air 01/18/25 12:18 Vital signs reviewed. Medical Decision Making MDM Narrative Medical decision making narrative: Discussed with patient patient that we will discharge her home with some oral antibiotics for possible skin infection especially since she is type 2 diabetic. The area was cleaned with surgical scrub patted dry antibiotic ointment and nonadhesive dressing and Telfa was applied to the wound since patient is very sensitive with adhesives. Discussed with patient I will also send her home with an antibiotic ointment to put on the area and it is very important to clean the area at least twice a day especially since she is diabetic and prone to infections not healing well. Patient verbalized understanding denies any other questions or concerns at this time. Differential Diagnosis Differential Diagnosis: Differential diagnosis: Abscess, cellulitis, hidradenitis, laceration, puncture wound. Vital Signs Vital Signs: Vital Signs Temperature 37.0 C 01/18/25 12:18 Pulse Rate 112 H 01/18/25 12:18 Respiratory Rate 17 01/18/25 12:18 Blood Pressure 134/59 L 01/18/25 12:18 Pulse Oximetry 94 01/18/25 12:18 Oxygen Delivery Room Air 01/18/25 12:18 Temperature 37.0 C 01/18/25 12:18 Pulse Rate 112 H 01/18/25 12:18 Respiratory Rate 17 01/18/25 12:18 Blood Pressure 134/59 L 01/18/25 12:18 Pulse Oximetry 94 01/18/25 12:18 Oxygen Delivery Room Air 01/18/25 12:18 Critical Care Time Critical Care Time Critical Care Time: No Discharge Plan Discharge Clinical Impression: Cellulitis Qualifiers: Site of cellulitis: extremity Site of cellulitis of extremity: lower extremity Patient Disposition: Home, Self-Care Condition: Stable Instructions: Antibiotic Form, Cellulitis (ED) Additional Instructions: Take the prescribed antibiotic medicine you are given as directed until it is gone. Take it even if you feel better. It treats the infection and stops it from returning. Not taking all the medicine can make future infections hard to treat. Keep the infected area clean. When possible, raise the infected area above the level of your heart. This helps keep swelling down. May take Tylenol ibuprofen as needed for pain Take your temperature once a day for a week to monitor for fevers. If you do spike a fever please call your doctor right away. Wash your hands often to prevent spreading the infection. In the future, wash your hands before and after you touch cuts, scratches, or bandages. This will help prevent infection. Please call your doctor today and be scheduled for follow-up appointments in regards to being evaluated for vascular disease. When to call your healthcare provider Call your healthcare provider immediately if you have any of the following: Difficulty or pain when moving the joints above or below the infected area Discharge or pus draining from the area Fever of 100.4?F (38?C) or higher, or as directed by your healthcare provider Pain that gets worse in or around the infected Redness that gets worse in or around the infected area, particularly if the area of redness expands to a wider area Shaking chills Swelling of the infected area Vomiting Patient Language: Montenegrin Prescriptions: New doxycycline hyclate 100 mg tablet 100 mg PO BID 7 Days Qty: 14 0RF mupirocin [Centany] 2 % ointment 1 applic topical BID Qty: 22 0RF No Action furosemide 20 mg tablet See Rx Instructions .ROUTE .COMPLEX Qty: 90 1RF Dose Instruction: TAKE 1 TABLET BY MOUTH EVERY OTHER MORNING BEFORE BREAKFAST. Rx Instructions: TAKE 1 TABLET BY MOUTH EVERY OTHER MORNING BEFORE BREAKFAST. PreserVision AREDS-2 250-90-40-1 mg Capsule 1 tablet PO BID aspirin 81 mg Capsule See Rx Instructions .ROUTE .COMPLEX Rx Instructions: 1 TAB TWICE WEEK - MONDAY AND MONDAY blood-glucose meter [Contour Next EZ Meter[place] [facility] [place]ructions .ROUTE .COMPLEX Qty: 1 0RF Dose Instruction: CHECK BLOOD SUGAR DAILY NEEDED DIRECTED Rx Instructions: CHECK BLOOD SUGAR DAILY NEEDED DIRECTED lancets [Microlet Lancet] Misc See Rx Instructions .ROUTE .COMPLEX Qty: 100 0RF Dose Instruction: CHECK BLOOD SUGAR DAILY NEEDED DIRECTED Rx Instructions: CHECK BLOOD SUGAR DAILY NEEDED DIRECTED (DME) Contour Next Test Strips Strip See Rx Instructions .ROUTE .COMPLEX Qty: 50 1RF Dose Instruction: CHECK BLOOD SUGAR DAILY NEEDED DIRECTED Rx Instructions: CHECK BLOOD SUGAR DAILY NEEDED DIRECTED metoprolol tartrate 25 mg tablet See Rx Instructions .ROUTE .COMPLEX Qty: 180 1RF Dose Instruction: TAKE 1 TABLET BY MOUTH TWICE A DAY Rx Instructions: TAKE 1 TABLET BY MOUTH TWICE A DAY benazepril 10 mg tablet See Rx Instructions .ROUTE .COMPLEX Qty: 90 1RF Dose Instruction: TAKE 1 TABLET BY MOUTH EVERY DAY Rx Instructions: TAKE 1 TABLET BY MOUTH EVERY DAY Paxlovid 150-100 mg tablets,dose pack See Rx Instructions PO PER PKG DIR Qty: 20 0RF Rx Instructions: PO PER PKG DIR cholecalciferol (vitamin D3) 1,250 mcg (50,000 unit) capsule 1,250 mcg PO WEEKLY Qty: 12 3RF Rx Instructions: weekly on Sun fluticasone propionate 50 mcg/actuation spray,suspension 1 spray intranasal DAILY Qty: 16 0RF Rx Instructions: administer into each nostril simvastatin 40 mg tablet See Rx Instructions .ROUTE .COMPLEX Qty: 90 1RF Dose Instruction: TAKE 1 TABLET BY MOUTH EVERY DAY Rx Instructions: TAKE 1 TABLET BY MOUTH EVERY DAY ipratropium bromide 21 mcg (0.03 %) spray,non-aerosol 2 spray intranasal BID Qty: 30 0RF Rx Instructions: administer into each nostril metformin 500 mg tablet See Rx Instructions .ROUTE .COMPLEX Qty: 90 2RF Dose Instruction: TAKE 1 TABLET BY MOUTH EVERY DAY Rx Instructions: TAKE 1 TABLET BY MOUTH EVERY DAY famotidine 20 mg tablet See Rx Instructions .ROUTE .COMPLEX Qty: 180 0RF Dose Instruction: TAKE 1 TABLET BY MOUTH TWICE A DAY Rx Instructions: TAKE 1 TABLET BY MOUTH TWICE A DAY amlodipine 10 mg tablet See Rx Instructions .ROUTE .COMPLEX Qty: 90 1RF Dose Instruction: TAKE 1 TABLET BY MOUTH EVERY DAY Rx Instructions: TAKE 1 TABLET BY MOUTH EVERY DAY Follow-up/Referrals: Jovany Escoto MD [Primary Care Provider] - Time of Disposition: 13:34
[2025-01-18 12:18] VITALS: BP 134/59; PULSE 112; RESP 17; TEMP 37; O2SAT 94
== END 2025-01-18 13:37 | disposition home or self-care (01) ==
PROVIDERS: Emergency Provider Nurse Practitioner Family; PCP Family Medicine
DX: L03.116 Cellulitis of left lower limb (principal); I12.9 Hypertensive chronic kidney disease with stage 1 through stage 4 chronic kidney disease, or unspecified chronic kidney disease; E11.22 Type 2 diabetes mellitus with diabetic chronic kidney disease; N18.9 Chronic kidney disease, unspecified; Z79.84 Long term (current) use of oral hypoglycemic drugs; E78.2 Mixed hyperlipidemia; M17.0 Bilateral primary osteoarthritis of knee; E66.9 Obesity, unspecified; Z68.33 Body mass index [BMI] 33.0-33.9, adult; Z85.42 Personal history of malignant neoplasm of other parts of uterus; Z87.891 Personal history of nicotine dependence; Z79.82 Long term (current) use of aspirin
CPT/HCPCS: 99213; G0463

== ENCOUNTER 2025-01-20 17:12 | Inpatient (IN) | payer OTHER, SELFPAY ==
[2025-01-20] VITALS (12 sets, daily range): BP systolic 122–145; BP diastolic 55–90; PULSE 99–118; RESP 16–17; TEMP 37; O2SAT 91–99
--- NOTE | ~2025-01-20 | US_ITS ---
US pelvic complete Ordering provider: Rm Galeana MD History: . Pelvic Mass . Comparison: None. Technique: Transabdominal and endovaginal ultrasound of the pelvis (Doppler ultrasound interrogation techniques used as needed for this exam.) FINDINGS: A large complex echogenicity mass is seen in the midline and to the right adnexa measuring 10 x 9.9 x 8.7 cm which may be a large right ovarian mass. The uterus and ovaries are not demonstrated. IMPRESSION: Mass occupying the midline and right adnexal area which may indicate ovarian mass. Further evaluation advised. Reviewed, dictated and finalized at location A. IMPRESSION: Mass occupying the midline and right adnexal area which may indicate ovarian ma ss. Further evaluation advised.
--- NOTE | ~2025-01-20 | CT_ITS ---
CT of the Abdomen and Pelvis: Indication: Mass Technique: 2.5 mm axial scans were obtained through the abdomen and pelvis following intravenous adm inistration of 100 cc of Omnipaque 350. Dose reduction technique was used on this scan by utilizing a utomated exposure control and iterative reconstruction technique. The dose-length product (DLP) was 1 309.09 mGy-cm. COMPARISON: 01/20/2025 Findings: Scans through the lung bases demonstrate focal scarring or atelectasis at the lingula. The liver, spleen, pancreas, gallbladder, adrenals and kidneys are within normal limits. There are at herosclerotic calcifications of the aorta. No lymphadenopathy. No bowel obstruction or bowel wall thickening. Appendix is prominent at 9-10 mm, but no acute inflamm atory change clearly evident.. Images through the pelvis were performed. Urinary bladder unremarkable. 12.5 x 11.1 x 9.1 cm heteroge neous mixed solid and cystic mass in the pelvis, with no distinct normal uterus or ovary identified. This lesion is suspicious for malignancy. Lesion abuts areas of the sigmoid colon, and focal serosal involvement cannot be excluded. There are scattered smaller peritoneal implants/metastases, most pred ominant in the left upper quadrant. No ascites. L1 compression fracture present, likely chronic. Impression: 12.5 x 11.1 x 9 x 1 cm heterogeneous mixed solid and cystic pelvic mass, highly suspicious for gyneco logic malignancy. Please see details above. Scattered much smaller peritoneal implants, compatible with peritoneal metastatic disease. Prominent appendix, but no definite acute inflammatory change evident. Correlate clinically. Reviewed, dictated and finalized at location . Impression: 12.5 x 11.1 x 9 x 1 cm heterogeneous mixed solid and cystic pelvic mass, highly suspicious for gynecologic malignancy. Please see details above. Scattered much smaller peritoneal implants, compatible with peritoneal metastat ic disease. Prominent appendix, but no definite acute inflammatory change evident. Correlat e clinically.
--- NOTE | ~2025-01-20 | XR_ITS ---
HISTORY: edema, erythema . COMPARISON: None TECHNIQUE: 2 views of the left femur were performed FINDINGS: No acute or subacute fracture. Joint spaces are preserved and alignment is maintained. Soft tissues are unremarkable without radiopaque foreign body or significant calcification. Age-appropriate mineralization. IMPRESSION: No acute or subacute fracture, as detailed above. Reviewed, dictated and finalized at location A.
--- NOTE | ~2025-01-20 | CT_ITS ---
CLINICAL INDICATION: Left thigh infection. COMPARISON: None. TECHNIQUE: Computed tomography (CT) of the left thigh was performed following the administration of i ntravenous contrast. The dose-length product was 1086.59 mGy-cm. FINDINGS/OBSERVATIONS: Induration of the soft tissues is identified along the medial margin of the mi d to lower third of the left thigh, without penetration beyond the superficial soft tissues. No rim-enhancing fluid collection is appreciated. A pelvic mass is identified with irregular enhancement and nodularity. The entirety of the pelvic mass is not visualized on the submitted images which contrast enhanced CT of the abdomen and pelvis is recommended. In comparison with CT examination of the abdomen and pelvis performed 11/11/2021, the uterus is suspec kishan to be surgically absent, or markedly atrophic. IMPRESSION: Unremarkable CT evaluation of the left thigh with only induration of the superficial soft tissues con sistent with patient's presentation Contrast-enhanced CT evaluation of the pelvis demonstrates large pelvic mass for which contrast enhan isidro CT of the abdomen and pelvis is recommended as this mass is not entirely included on the current study (unless this is a known finding). Reviewed, dictated and finalized at location A. IMPRESSION: Unremarkable CT evaluation of the left thigh with only induration of the superf icial soft tissues consistent with patient's presentation Contrast-enhanced CT evaluation of the pelvis demonstrates large pelvic mass fo r which contrast enhanced CT of the abdomen and pelvis is recommended as this m ass is not entirely included on the current study (unless this is a known findi ng).
--- NOTE | 2025-01-20 17:59 | ED.LOWEXIN ---
HPI - Extremity Injury (Lower) General Chief Complaint: Extremity Injury, Lower <Poornima Key PA-C - Last Filed: 01/21/25 09:42> Stated Complaint: Cellulitis left knee-sent by <Poornima Key PA-C - Last Filed: 01/21/25 09:42> Time Seen by Provider: 01/20/25 17:59 <Poornima Key PA-C - Last Filed: 01/21/25 09:42> Focused HPI: This is a 84 year old female that presents to the ER for infection to the left lower extremity. She was seen at [facility] 2 days ago. Reports she is taking Doxycycline. Reports worsening of her symptoms today with increased redness. GENERAL: Elderly, well-nourished, and in no acute distress. HEAD: Normocephalic, atraumatic. CHEST: Clear to auscultation. ?No respiratory distress. HEART: Regular rate and rhythm.? NEURO: ?Alert and oriented x3. Patient screened in triage and initial orders placed.? ?Additional care and disposition to be based upon?diagnostic testing and treatment. <Poornima Key PA-C - Last Filed: 01/21/25 09:42> Focused HPI: This is a 84 year old female that presents to the ER for infection to the left lower extremity. She was seen at [facility] 2 days ago. Reports she is taking Doxycycline. Reports worsening of her symptoms today with increased redness. GENERAL: Elderly, well-nourished, and in no acute distress. HEAD: Normocephalic, atraumatic. CHEST: Clear to auscultation. ?No respiratory distress. HEART: Regular rate and rhythm.? NEURO: ?Alert and oriented x3. Patient screened in triage and initial orders placed.? ?Additional care and disposition to be based upon?diagnostic testing and treatment. <Jenelle Cazares PA-C - Last Filed: 01/21/25 02:57> Source: patient <NHAN Buckner Last Filed: 01/21/25 02:57> Mode of arrival: ambulatory <NHAN Buckner Last Filed: 01/21/25 02:57> Limitations: no limitations <Jenelle Cazares PA-C - Last Filed: 01/21/25 02:57> History of Present Illness HPI Narrative: Agree with above HPI. Reports she noticed a pimple like lesion on Monday. Started on abx Monday. Reports today worsening redness, tenderness, blister-liked area. <Jenelle Cazares PA-C - Last Filed: 01/21/25 02:57> Related Data Home Medications: Home Medications ?Medication ?Instructions ?Recorded ?Confirmed ?Last Taken ?Type aspirin 81 mg capsule See Rx Instructions .Route .COMPLEX 12/13/21 01/21/25 12/19/21 History vit C 250 mg-vit E 90 mg-zinc 40 1 tablet PO BID 12/13/21 01/21/25 12/17/21 History mg-copper 1 [id number] capsule (PreserVision AREDS-2) <Poornima Key PA-C - Last Filed: 01/21/25 09:42> Allergies/Adverse Reactions: Allergies Allergy/AdvReac Type Severity Reaction Status Date / Time No Known Allergies Allergy Verified 01/18/25 12:17 <Poornima Key PA-C - Last Filed: 01/21/25 09:42> Review of Systems Review of Systems: All systems reviewed & are unremarkable except as noted in HPI. 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 History of tobacco use Hypertensive chronic kidney disease History of uterine cancer Arthritis Essential (primary) hypertension Mixed hyperlipidemia Primary osteoarthritis of both knees Type 2 diabetes mellitus without complication, without long-term current use of insulin <Poornima Key PA-C - Last Filed: 01/21/25 09:42> Surgical History Surgical History: Surgical History History of total hysterectomy <Poornima Key PA-C - Last Filed: 01/21/25 09:42> Family History Family History: Family History Mother Hypertension Family history of cardiovascular disease Father Cerebrovascular accident, Onset Age: 69 Sibling Family history of malignant neoplasm, Onset Age: 75 <Poornima Key PA-C - Last Filed: 01/21/25 09:42> Social History Social History: Social History Social History: Smoking packs per day: 2 Smoking cigarettes per day: 40.0 Years smoked: 50 Smoking pack-years: 100.00 Smoking status: Former smoker Tobacco type: cigarettes Second hand tobacco smoke exposure: No Smoking end date: 10/16/02 Alcohol intake: current Drinks per week: 1 Alcohol use details: STATES 1 DRINK/MONTH Substance use: never Substance use type: does not use Do You Feel Safe in your Home?: Yes Lack of Transportation: No Lack of Food: Never True Current Housing: I Have Housing Concerned About Future Housing: No Difficulty Paying Gas/Electric Bills: No Difficulty Paying for Meds: No Currently Unemployed: No Education: High School Diploma/GED Difficulty w/ Childcare or Family Care: No Living arrangements: alone Occupation/Education: retired Gender identity (if verbalized by the patient): Female Sexual Orientation (if Verbalized by the Patient): Straight or Heterosexual Spiritual care concerns: No <Poornima Key PA-C - Last Filed: 01/21/25 09:42> Exam Narrative: GENERAL: Elderly but well appearing, obese with BMI of 33.7, non-toxic, in no acute distress. HEAD: Normocephalic, atraumatic. RESPIRATORY: Airway patent, respirations nonlabored. Clear to auscultation bilaterally, no rales, rhonchi, wheezing. CARDIOVASCULAR: Regular rate and rhythm without murmurs, rubs, or gallops. MUSCULOSKELETAL: Moves all extremities. No gross deformities. SKIN: Warm, dry, normal color. Large approx 14x9 cm area of erythema to L distal anterior thigh, well circumscribed, with warmth/induration present. Central area approx 5x3 cm, with areas of blanching and deep purple discoloration, small vesicular lesions. Focal TTP, particularly around central lesion. No active drainage. Sensation intact. NEURO: A&O X3. Speech clear. Cranial nerves II-XII grossly intact. Steady gait. No ataxic movements. PSYCHIATRIC: Appropriate mood and affect. Normal interaction. <Jenelle Cazares PA-C - Last Filed: 01/21/25 02:57> Course EDUCATION SUPERVISOR/PA Physician Supervision I personally saw the pt and agree with management <Jatinder Waters MD - Last Filed: 01/20/25 22:03> Vital Signs Vital signs: Vital Signs Temperature 98.6 F 01/20/25 17:20 Pulse Rate 118 H 01/20/25 17:20 Respiratory Rate 16 01/20/25 17:20 Blood Pressure 133/55 L 01/20/25 17:20 Pulse Oximetry 93 01/20/25 17:20 Temperature 97.8 F 01/21/25 08:00 Pulse Rate 86 01/21/25 08:00 Respiratory Rate 18 01/21/25 08:00 Blood Pressure 106/59 L 01/21/25 08:00 Pulse Oximetry 94 01/21/25 08:00 Oxygen Delivery Room Air 01/21/25 08:00 <Poornima Key PA-C - Last Filed: 01/21/25 09:42> Vital Signs Temperature 98.6 F 01/20/25 17:20 Pulse Rate 118 H 01/20/25 17:20 Respiratory Rate 16 01/20/25 17:20 Blood Pressure 133/55 L 01/20/25 17:20 Pulse Oximetry 93 01/20/25 17:20 Temperature 97.8 F 01/21/25 08:00 Pulse Rate 86 01/21/25 08:00 Respiratory Rate 18 01/21/25 08:00 Blood Pressure 106/59 L 01/21/25 08:00 Pulse Oximetry 94 01/21/25 08:00 Oxygen Delivery Room Air 01/21/25 08:00 <NHAN Buckner Last Filed: 01/21/25 02:57> Vital Signs Temperature 98.6 F 01/20/25 17:20 Pulse Rate 118 H 01/20/25 17:20 Respiratory Rate 16 01/20/25 17:20 Blood Pressure 133/55 L 01/20/25 17:20 Pulse Oximetry 93 01/20/25 17:20 Temperature 97.8 F 01/21/25 08:00 Pulse Rate 86 01/21/25 08:00 Respiratory Rate 18 01/21/25 08:00 Blood Pressure 106/59 L 01/21/25 08:00 Pulse Oximetry 94 01/21/25 08:00 Oxygen Delivery Room Air 01/21/25 08:00 <Jatinder Waters MD - Last Filed: 01/20/25 22:03> MDM - Extremity Injury (Lower) MDM Narrative Medical decision making narrative: Patient presented to ED with infection to left thigh. Noticed over the last couple of days. Has been on doxycycline for the past 2 days without improvement. Reports redness continues to expand. Patient tachycardic upon arrival. This was improved by the time of my evaluation. She is afebrile here. Cbc with blood cell count of 13.8. Inflammatory markers are mildly elevated. Lactic acid within normal range at 1.5. CMP with stable kidney function. Liver enzymes are mildly elevated. This appears new from previous records. Patient without any right upper quadrant tenderness on exam. X-ray of femur are without any evidence of subcu gas. No fractures. Vancomycin started in the ED. Blood cultures obtained. Patient will be admitted for further evaluation and possible surgical consult/debridement/wound care. Patient in agreement with plan. Discussed case with Dr. Douglas, hospitalist, accepted for admission. Recommended CT of LLE to r/o abscess/gas. CT LLE w/ contrast w/o evidence of abscess or subq gas, does show abnormal pelvic mass. Hospitalist made aware. Additional CT of abd/pelvis ordered per recommendation of radiologist. Patient has history of previous uterine cancer status post hysterectomy. Never been told she has a pelvic mass in the past. Denies abdominal pain. Patient's HR was noted to be elevated initially upon arrival. This responded to fluids. HR was later noted to be very labile ranging from 90s-130s. EKG was obtained and reporting AFib with RVR.... rhythm is irregular but may be more related to PACs? There are definitive P waves identified, may be more of multifocal atrial tachycardia. Patient has no history of previous AFib. She is on metoprolol 25 mg b.i.d.. Has not had her home nighttime dose. Given home oral dose in the ED. She is denying any chest pain or shortness of breath. Heart rate improved consistently into the 90s after home metoprolol dose. Hospitalist was made aware of this. Patient to telemetry floor. <Jenelle Cazares PA-C - Last Filed: 01/21/25 02:57> Medical Records Attestation: I reviewed the patient's medical records. <NHAN Buckner Last Filed: 01/21/25 02:57> Lab Data Attestation: I reviewed the patient's lab results. <Jenelle Cazares PA-C - Last Filed: 01/21/25 02:57> Result diagrams: 01/20/25 20:04 01/21/25 04:00 <Poornima Key PA-C - Last Filed: 01/21/25 09:42> Labs: Lab Results 01/20/25 Range/Units 20:04 WBC 13.8 H (4.5-10.0) K/mm3 RBC 4.81 (4.2-5.4) M/mm3 Hgb 14.5 (12.0-15.0) g/dL Hct 45.5 (37.0-47.0) % MCV 94.6 (80-100) fl MCH 30.1 (26-34) pg MCHC 31.9 L (32-36) g/dl RDW 14.3 (11.5-14.5) % Plt Count 334 (150-375) k/mm3 MPV 11.8 H (7.4-10.4) fl Immature Gran % (Auto) 0.4 (0-0.5) % Neut % (Auto) 73.1 (45.5-73.1) % Lymph % (Auto) 9.9 L (18.3-44.2) % [place] % (Auto) 12.1 H (2.6-8.5) % Eos % (Auto) 4.1 (0-4.4) % Baso % (Auto) 0.4 (0.2-1.2) % Lymph # (Auto) 1.37 (0.9-3.2) K/mm3 [place] # (Auto) 1.7 H (0.1-0.6) K/mm3 Eos # (Auto) 0.6 H (0-0.3) K/mm3 Baso # (Auto) 0.1 (0.0-0.1) K/mm3 Abs Immat Gran (auto) 0.05 H (0.00-0.031) K/mm3 Absolute Neuts (auto) 10.1 H (1.3-6.7) K/mm3 Absolute Nucleated RBC 0.000 (0.0-0.012) K/mm3 Nucleated RBC % 0.0 (0.0-0.2) % ESR 21 H (0-20) mm/hr Sodium 137 (137-145) mmol/L Potassium 3.9 (3.4-5.0) mmol/L Chloride 97 L (98-107) mmol/L Carbon Dioxide 27 (22-30) mmol/L Anion Gap 13 H (4-12) mmol/L BUN 33 H D (7-17) mg/dL Creatinine 1.09 H (0.7-1.0) mg/dL Estim Creat Clear Calc Not Reportable Estimated GFR Not Reportable Glucose 160 H (65-110) mg/dL Lactic Acid 1.5 (0.7-2.0) mmol/L Calcium 9.9 (8.4-10.2) mg/dL Magnesium 1.6 (1.6-2.3) mg/dL Total Bilirubin 0.9 (0.2-1.3) mg/dL AST 117 H (14-36) U/L ALT 114 H (6-35) U/L Alkaline Phosphatase 203 H (38-126) U/L C-Reactive Protein 4.0 H (<1.0) mg/dL Total Protein 7.0 (6.3-8.2) g/dL Albumin 4.1 (3.5-5.1) g/dL <Poornima Key PA-C - Last Filed: 01/21/25 09:42> Lab Results 01/20/25 Range/Units 20:04 WBC 13.8 H (4.5-10.0) K/mm3 RBC 4.81 (4.2-5.4) M/mm3 Hgb 14.5 (12.0-15.0) g/dL Hct 45.5 (37.0-47.0) % MCV 94.6 (80-100) fl MCH 30.1 (26-34) pg MCHC 31.9 L (32-36) g/dl RDW 14.3 (11.5-14.5) % Plt Count 334 (150-375) k/mm3 MPV 11.8 H (7.4-10.4) fl Immature Gran % (Auto) 0.4 (0-0.5) % Neut % (Auto) 73.1 (45.5-73.1) % Lymph % (Auto) 9.9 L (18.3-44.2) % [place] % (Auto) 12.1 H (2.6-8.5) % Eos % (Auto) 4.1 (0-4.4) % Baso % (Auto) 0.4 (0.2-1.2) % Lymph # (Auto) 1.37 (0.9-3.2) K/mm3 [place] # (Auto) 1.7 H (0.1-0.6) K/mm3 Eos # (Auto) 0.6 H (0-0.3) K/mm3 Baso # (Auto) 0.1 (0.0-0.1) K/mm3 Abs Immat Gran (auto) 0.05 H (0.00-0.031) K/mm3 Absolute Neuts (auto) 10.1 H (1.3-6.7) K/mm3 Absolute Nucleated RBC 0.000 (0.0-0.012) K/mm3 Nucleated RBC % 0.0 (0.0-0.2) % ESR 21 H (0-20) mm/hr Sodium 137 (137-145) mmol/L Potassium 3.9 (3.4-5.0) mmol/L Chloride 97 L (98-107) mmol/L Carbon Dioxide 27 (22-30) mmol/L Anion Gap 13 H (4-12) mmol/L BUN 33 H D (7-17) mg/dL Creatinine 1.09 H (0.7-1.0) mg/dL Estim Creat Clear Calc Not Reportable Estimated GFR Not Reportable Glucose 160 H (65-110) mg/dL Lactic Acid 1.5 (0.7-2.0) mmol/L Calcium 9.9 (8.4-10.2) mg/dL Magnesium 1.6 (1.6-2.3) mg/dL Total Bilirubin 0.9 (0.2-1.3) mg/dL AST 117 H (14-36) U/L ALT 114 H (6-35) U/L Alkaline Phosphatase 203 H (38-126) U/L C-Reactive Protein 4.0 H (<1.0) mg/dL Total Protein 7.0 (6.3-8.2) g/dL Albumin 4.1 (3.5-5.1) g/dL <Jenelle Cazares PA-C - Last Filed: 01/21/25 02:57> Lab Results 01/20/25 Range/Units 20:04 WBC 13.8 H (4.5-10.0) K/mm3 RBC 4.81 (4.2-5.4) M/mm3 Hgb 14.5 (12.0-15.0) g/dL Hct 45.5 (37.0-47.0) % MCV 94.6 (80-100) fl MCH 30.1 (26-34) pg MCHC 31.9 L (32-36) g/dl RDW 14.3 (11.5-14.5) % Plt Count 334 (150-375) k/mm3 MPV 11.8 H (7.4-10.4) fl Immature Gran % (Auto) 0.4 (0-0.5) % Neut % (Auto) 73.1 (45.5-73.1) % Lymph % (Auto) 9.9 L (18.3-44.2) % [place] % (Auto) 12.1 H (2.6-8.5) % Eos % (Auto) 4.1 (0-4.4) % Baso % (Auto) 0.4 (0.2-1.2) % Lymph # (Auto) 1.37 (0.9-3.2) K/mm3 [place] # (Auto) 1.7 H (0.1-0.6) K/mm3 Eos # (Auto) 0.6 H (0-0.3) K/mm3 Baso # (Auto) 0.1 (0.0-0.1) K/mm3 Abs Immat Gran (auto) 0.05 H (0.00-0.031) K/mm3 Absolute Neuts (auto) 10.1 H (1.3-6.7) K/mm3 Absolute Nucleated RBC 0.000 (0.0-0.012) K/mm3 Nucleated RBC % 0.0 (0.0-0.2) % ESR 21 H (0-20) mm/hr Sodium 137 (137-145) mmol/L Potassium 3.9 (3.4-5.0) mmol/L Chloride 97 L (98-107) mmol/L Carbon Dioxide 27 (22-30) mmol/L Anion Gap 13 H (4-12) mmol/L BUN 33 H D (7-17) mg/dL Creatinine 1.09 H (0.7-1.0) mg/dL Estim Creat Clear Calc Not Reportable Estimated GFR Not Reportable Glucose 160 H (65-110) mg/dL Lactic Acid 1.5 (0.7-2.0) mmol/L Calcium 9.9 (8.4-10.2) mg/dL Magnesium 1.6 (1.6-2.3) mg/dL Total Bilirubin 0.9 (0.2-1.3) mg/dL AST 117 H (14-36) U/L ALT 114 H (6-35) U/L Alkaline Phosphatase 203 H (38-126) U/L C-Reactive Protein 4.0 H (<1.0) mg/dL Total Protein 7.0 (6.3-8.2) g/dL Albumin 4.1 (3.5-5.1) g/dL <Jatinder Waters MD - Last Filed: 01/20/25 22:03> Imaging Data Attestation: I personally reviewed and interpreted this imaging study as follows: <Jenelle Cazares PA-C - Last Filed: 01/21/25 02:57> Radiologist's impression: ITS Impressions Femur X-Ray 01/20/25 18:50 IMPRESSION: No acute or subacute fracture, as detailed above. ITS Impressions Femur X-Ray 01/20/25 18:50 IMPRESSION: No acute or subacute fracture, as detailed above. Lower Extremity CT 01/20/25 23:54 IMPRESSION: Unremarkable CT evaluation of the left thigh with only induration of the superficial soft tissues consistent with patient's presentation Contrast-enhanced CT evaluation of the pelvis demonstrates large pelvic mass for which contrast enhanced CT of the abdomen and pelvis is recommended as this mass is not entirely included on the current study (unless this is a known finding). <NHAN Pinedo Last Filed: 01/21/25 09:42> ITS Impressions Femur X-Ray 01/20/25 18:50 IMPRESSION: No acute or subacute fracture, as detailed above. <NHAN Buckner Last Filed: 01/21/25 02:57> Critical Care Time Critical Care Time Critical Care Time: No <NHAN Pinedo Last Filed: 01/21/25 09:42> Discharge Plan Discharge Clinical Impression: Cellulitis of left thigh, Pelvic mass, Transaminitis Abnormal heart rhythm Qualifiers: Arrhythmia type: unspecified cardiac arrhythmia Qualified Code(s): I49.9 - Cardiac arrhythmia, unspecified <NHAN Pinedo Last Filed: 01/21/25 09:42> Patient Disposition: Still a Patient <NHAN Pinedo Last Filed: 01/21/25 09:42> Condition: Stable <NHAN Pinedo Last Filed: 01/21/25 09:42>
--- OUTSIDE RECORDS SUMMARY | 2025-01-20 18:13 | XMS_ITS | Clinical Summary ---
Author Organization [facility] Address [address] 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
--- OUTSIDE RECORDS SUMMARY | 2025-01-20 18:13 | XMS_ITS | Encounter Summary ---
Author Organization [employer] Address [address] [place] [address] Care Team Providers Care Solo Truck Driver Name Role Phone Unavailable Primary Care Provider Unavailabl e Encounter Details Date Type Department Care Team (Late st Contact Info) Description 04/01/[address] [facility] Support [facility]. ([facility]) [address] 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
--- OUTSIDE RECORDS SUMMARY | 2025-01-20 18:13 | XMS_ITS | Encounter Summary ---
Author Organization [facility] Address [address] [place] [address] Care Team Providers Care Associate Art Director Name Role Phone Unavailable Primary Care Provider Unavailabl e Encounter Details Date Type Department Care Team (Late st Contact Info) Description 04/07/2005 Outpatient Historical [facility] Memo Culver MD [address] [place] [phone] [facility] (Primary Dx) Social History Tobacco Use Types Packs/Day Years Used Date Smoking Tobacco: Never Assessed Comments Unknown Sex and Gender Information Value Date Recorded Sex Assigned at Not on file Legal Sex Female 2:47 AM WIRE TWISTER Gender Identity Not on file Sexual Orientation [...]
[2025-01-20 20:33] LABS: Basophils Absolute Auto 0.1 K/mm3 (0.0-0.1); Basophils Percent Auto 0.4 % (0.2-1.2); Eosinophils Absolute Auto 0.6 K/mm3 (0-0.3); Eosinophils Percent Auto 4.1 % (0-4.4); Hematocrit 45.5 % (37.0-47.0); Hemoglobin 14.5 g/dL (12.0-15.0); Immature Granulocyte Absolute 0.05 K/mm3 (0.00-0.031); Immature Granulocyte Percent A 0.4 % (0-0.5); Lymphocytes Absolute Auto 1.37 K/mm3 (0.9-3.2); Lymphocytes Percent Auto 9.9 % (18.3-44.2); Mean Corpuscular HGB Conc 31.9 g/dl (32-36); Mean Corpuscular Hemoglobin 30.1 pg (26-34); Mean Corpuscular Volume 94.6 fl (80-100); Mean Platelet Volume 11.8 fl (7.4-10.4); Monocytes Absolute Auto 1.7 K/mm3 (0.1-0.6); Monocytes Percent Auto 12.1 % (2.6-8.5); Neutrophils Absolute Auto 10.1 K/mm3 (1.3-6.7); Neutrophils Percent Auto 73.1 % (45.5-73.1); Platelet Count Result 334 k/mm3 (150-375); Red Blood Count 4.81 M/mm3 (4.2-5.4); Red Cell Distribution Width 14.3 % (11.5-14.5); White Blood Count 13.8 K/mm3 (4.5-10.0)
[2025-01-20 20:55] LABS: Alanine Aminotransferase 114 U/L (6-35); Albumin Level 4.1 g/dL (3.5-5.1); Alkaline Phosphatase 203 U/L (38-126); Anion Gap 13 mmol/L (4-12); Aspartate Amino Transferase 117 U/L (14-36); Bilirubin,Total 0.9 mg/dL (0.2-1.3); Blood Urea Nitrogen 33 mg/dL (7-17); Calcium 9.9 mg/dL (8.4-10.2); Carbon Dioxide 27 mmol/L (22-30); Chloride 97 mmol/L (98-107); Glucose 160 mg/dL (65-110); Potassium 3.9 mmol/L (3.4-5.0); Sodium 137 mmol/L (137-145)
--- OUTSIDE RECORDS SUMMARY | 2025-01-20 20:57 | XMS_ITS | Clinical Summary ---
Author Organization [facility] Address [address] 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
--- OUTSIDE RECORDS SUMMARY | 2025-01-20 20:57 | XMS_ITS | Encounter Summary ---
Author Organization [facility] Address [address] [place] [address] Care Team Providers Care Superintendent Building Name Role Phone Unavailable Primary Care Provider Unavailabl e Encounter Details Date Type Department Care Team (Late st Contact Info) Description 04/07/2005 Outpatient Historical [facility] Memo Culver MD [address] [place] [phone] [facility]ENISC[facility] (Primary Dx) Social History Tobacco Use Types Packs/Day Years Used Date Smoking Tobacco: Never Assessed Comments Unknown Sex and Gender Information Value Date Recorded Sex Assigned at Not on file Legal Sex Female 2:47 AM CAMPUS SAFETY OFFICER Gender Identity Not on file Sexual Orientation [...]
--- OUTSIDE RECORDS SUMMARY | 2025-01-20 20:57 | XMS_ITS | Encounter Summary ---
Author Organization [facility] Address [address] [place] [address] Care Team Providers Care Hydraulic Lift Operator Name Role Phone Unavailable Primary Care Provider Unavailabl e Encounter Details Date Type Department Care Team (Late st Contact Info) Description 04/01/2005 Outpatient Historical [facility] ([facility]) [address] [place] [address] Ja Parisi MD [address] [address] [place] [phone] Social History Tobacco Use Types Packs/Day Years Used Date Smoking Tobacco: Never Assessed Comments Unknown Sex and Gender Information Value Date Recorded Sex Assigned at Not on file Legal Sex Female 2:47 AM FIELD CARE ADVOCATE Gender Identity Not on file Sexual Orientation Not on file documented as of this encounter Plan of Treatment Not on file documented as of this encounter Visit Diagnoses Not on filedocumented in this encounter
[2025-01-20 21:06] LABS: Erythrocyte Sedimentation Rate 21 mm/hr (0-20)
[2025-01-20 21:26] LABS: Lactic Acid Reflex 1.5 mmol/L (0.7-2.0)
[2025-01-20] MEDS: SODIUM CHLORIDE 0.9% IV 1,000 ML 999 ML IV CONT (22:24)
[2025-01-20] MEDS: VANCOMYCIN 1,250 MG/NS 250 ML 1,250 MG/250 ML BAG 166.67 MG IVPB (22:32)
--- NOTE | 2025-01-20 23:13 | PC.NURSE ---
Assumed care of pt from MANDA Fabian. Pt readjsuted in bed and VS updated. Pt educated gun synchronizer light use if any additional needs.
[2025-01-21] VITALS (14 sets, daily range): BP systolic 106–133; BP diastolic 59–89; PULSE 75–120; RESP 16–18; TEMP 36.4–37.1; O2SAT 91–95; BMI 35.0
--- NOTE | 2025-01-21 00:29 | ECG_ITS ---
Test Date: 2025-01-21 00:36:57 Measurements Intervals [place] Rate: 119 P: 0 NH: 0 QRS: -13 QRSD: 101 T: 55 QT: 328 QTc: 462 Interpretive Statements MULTIFOCAL ATRIAL TACHYCARDIA WITH ATRIAL AND VENTRICULAR PREMATURE COMPLEXES BORDERLINE ST ABNORMALITY- LATERAL LEADS BASELINE ARTIFACT- II, AVR, V4-V6 ABNORMAL ECG No previous ECG available for comparison Electronically Signed On 01-21-2025 06:32:57 CDT by Jian Thrasher D.O.
[2025-01-21] MEDS: VANCOMYCIN 1,000 MG/NS 250 ML 1,000 MG/250 ML BAG 250 MG IVPB (00:37)
[2025-01-21 00:49] LABS: Magnesium 1.6 mg/dL (1.6-2.3)
[2025-01-21] MEDS: METOPROLOL TARTRATE 25 MG TABLET PO ×3 (01:00→22:02)
[2025-01-21] MEDS: MAGNESIUM SULF 2 GM/WATER 50ML 2 GM/50 ML BAG IVPB (01:25)
--- NOTE | 2025-01-21 01:39 | PC.NURSE ---
Pt satting 88-91% on RA. This RN attempted to place 2L NC O2 on pt and pt refused stating that will drive me nuts pt educated on importance of wearing oxygen. Pt satting 91% on RA at this time.
--- NOTE | 2025-01-21 03:02 | ADMGEN ---
This patient, Alcira Contreras, was admitted to Medical Room 345-01. Patient/family oriented to hospital policies and general routines including ID bracelet, bed and alarms, visiting hours, pain management, procedures, bathroom and other care routines, personal items, smoking policy, room service/diet, and visiting hours. Information on how to activate the Rapid Response Team has been discussed. Patient/Family are encouraged to report perceived risks to care and to ask questions if they do not understand what they are told or what they should do.
[2025-01-21 04:18] LABS: Estimated CRCL calculation 52 ml/min; Estimated Glomerular Filt Rate > 60
[2025-01-21] MEDS: ACETAMINOPHEN 325 MG TABLET 650 MG PO (04:19)
[2025-01-21] MEDS: SODIUM CHLORIDE 0.9% IV 1,000 ML 125 ML IV CONT (04:23)
--- NOTE | 2025-01-21 05:41 | PM.IMHP ---
H&P: HPI History of Present Illness Date/Time: 01/21/25 05:41 Chief Complaint: 1. Left thigh redness Narrative: Alcira Contreras is a 84F a with a mhx significant for NIDDM2, hypertension, GERD, dyslipidemia, uterine cancer About 4 days prior to admission, she in the middle of the night developed a new onset left thigh discomfort/pain, which when she reached out to palpate noticed a new blister which was not there when she retired to bed. The surrounding skin was red, firm to touch and painful when manipulated; the blister did eventually rupture and when she visited an urgent care center, was placed on Doxycycline. She adhered to this regimen religiously but on the day of presentation the span of the erythematous area had progressed with a pale center. With no known modifying factors, it was associated with anxiety and malaise; she denies fevers, chills, rigors, joint involvement or other skin lesions. On the day the lesion appeared, she had only merely left her home to search for an [employer] package; she states that her home is not particularly surrounded by coughlin or bushes, nor has she particularly seen spiders within the vicinity of her home. She does not smoke/chew tobacco, drink alcohol or consume recreational/illicit drugs. Work-up findings: WBC 13.8; his P width 0.5; MCV 94.6; PO2 334 ESR 21; CRP 4 NA 137; K 3.9; Cl 97; CO2 27; HGB 13; BUN 33; CR 1.09 CTAP: 12.5 x 11.1 x 9 x 1 cm heterogeneous mixed solid and cystic pelvic mass, highly suspicious for gynecologic malignancy. Scattered much smaller peritoneal implants, compatible with peritoneal metastatic disease. Prominent appendix, but no definite acute inflammatory change evident. CT left lower extremity:Unremarkable CT evaluation of the left thigh with only induration of the superficial soft tissues consistent with patient's presentation. 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 History of tobacco use Hypertensive chronic kidney disease History of uterine cancer Arthritis Essential (primary) hypertension Mixed hyperlipidemia Primary osteoarthritis of both knees Type 2 diabetes mellitus without complication, without long-term current use of insulin Surgical History Surgical History History of total hysterectomy Family History Family History Mother Hypertension Family history of cardiovascular disease Father Cerebrovascular accident, Onset Age: 69 Sibling Family history of malignant neoplasm, Onset Age: 75 Social History Social History Social History: Smoking packs per day: 2 Smoking cigarettes per day: 40.0 Years smoked: 50 Smoking pack-years: 100.00 Smoking status: Former smoker Tobacco type: cigarettes Second hand tobacco smoke exposure: No Smoking end date: 10/16/02 Alcohol intake: current Drinks per week: 1 Alcohol use details: STATES 1 DRINK/MONTH Substance use: never Substance use type: does not use Do You Feel Safe in your Home?: Yes Lack of Transportation: No Lack of Food: Never True Current Housing: I Have Housing Concerned About Future Housing: No Difficulty Paying Gas/Electric Bills: No Difficulty Paying for Meds: No Currently Unemployed: No Education: High School Diploma/GED Difficulty w/ Childcare or Family Care: No Living arrangements: alone Occupation/Education: retired Gender identity (if verbalized by the patient): Female Sexual Orientation (if Verbalized by the Patient): Straight or Heterosexual Spiritual care concerns: No Meds Home Medications and Allergies Home Medications ?Medication ?Instructions ?Recorded ?Confirmed ?Type aspirin 81 mg capsule See Rx Instructions .Route .COMPLEX 12/13/21 01/21/25 History vit C 250 mg-vit E 90 mg-zinc 40 1 tablet PO BID 12/13/21 01/21/25 History mg-copper 1 [id number] capsule (PreserVision AREDS-2) blood-glucose meter (Contour Next See Rx Instructions .Route 12/24/21 01/21/25 Rx EZ Meter) .COMPLEX #1 ea lancets (Microlet Lancet) See Rx Instructions .Route 03/04/22 01/21/25 Rx .COMPLEX #100 ea furosemide 20 mg tablet See Rx Instructions .Route 12/29/22 01/21/25 Rx .COMPLEX #90 tabs blood sugar diagnostic (Contour #50 strips 07/11/24 01/21/25 Rx Next Test Strips) metoprolol tartrate 25 mg tablet See Rx Instructions .Route 07/27/24 01/21/25 Rx .COMPLEX #180 tabs benazepril 10 mg tablet See Rx Instructions .Route 09/06/24 01/21/25 Rx .COMPLEX #90 tabs cholecalciferol (vitamin D3) 1,250 1,250 mcg PO WEEKLY #12 caps 10/18/24 01/21/25 Rx mcg (50,000 unit) capsule simvastatin 40 mg tablet See Rx Instructions .Route 10/30/24 01/21/25 Rx .COMPLEX #90 tabs metformin 500 mg tablet See Rx Instructions .Route 11/11/24 01/21/25 Rx .COMPLEX #90 tabs famotidine 20 mg tablet See Rx Instructions .Route 12/12/24 01/21/25 Rx .COMPLEX #180 tabs amlodipine 10 mg tablet See Rx Instructions .Route 01/16/25 01/21/25 Rx .COMPLEX #90 tabs Allergies Allergy/AdvReac Type Severity Reaction Status Date / Time No Known Allergies Allergy Verified 01/18/25 12:17 Vital Signs Vital Signs - 24 hr 01/20/25 17:20 01/20/25 21:45 01/20/25 21:47 Temperature 98.6 F Pulse Rate 118 H Respiratory Rate 16 Blood Pressure 133/55 L 145/79 H Pulse Oximetry 93 92 94 01/20/25 22:00 01/20/25 22:02 01/20/25 22:15 Temperature Pulse Rate Respiratory Rate Blood Pressure 122/63 Pulse Oximetry 92 92 92 01/20/25 22:17 01/20/25 22:30 01/20/25 22:32 Temperature Pulse Rate Respiratory Rate Blood Pressure 122/74 143/82 H Pulse Oximetry 91 93 93 01/20/25 22:45 01/20/25 22:47 01/20/25 23:14 Temperature Pulse Rate 99 Respiratory Rate 17 Blood Pressure 129/90 124/65 Pulse Oximetry 91 91 99 01/21/25 01:00 01/21/25 01:00 01/21/25 01:41 Temperature Pulse Rate 120 H 120 H 94 Respiratory Rate 16 Blood Pressure 128/82 Pulse Oximetry 91 01/21/25 02:14 01/21/25 02:25 Temperature 98.1 F Pulse Rate 90 91 Respiratory Rate 17 16 Blood Pressure 116/89 133/72 Pulse Oximetry 92 95 Exam Const: General: comfortable HENMT: Ears: TM's normal bilaterally Mouth: Yes moist mucous membranes Eyes: General: appearance normal, both eyes and all related structures Pupils: Equal, round and reactive pupils present EOM: EOMs intact bilaterally Neck: Neck: supple Resp: Effort & Inspection: normal respiratory effort Auscultation: clear to auscultation bilaterally Cardio: Rate: regular rate Rhythm: regular rhythm GI: Inspection: distended Auscultation: normal bowel sounds Skin: General skin exam: erythema Lesions: lesion noted Wounds: wounds noted Neuro: General: gait normal Motor exam (neuro): 5/5 motor strength present throughout, Normal motor muscle tone present throughout and Abnormal motor strength present Psych: Mental Status: mental status grossly normal Affect: Anxious affect present H&P: Results Labs Labs: Short CBC 01/20/25 Range/Units 20:04 WBC 13.8 H (4.5-10.0) K/mm3 Hgb 14.5 (12.0-15.0) g/dL Hct 45.5 (37.0-47.0) % Plt Count 334 (150-375) k/mm3 BMP 01/20/25 01/21/25 20:04 04:00 Sodium 137 Potassium 3.9 Chloride 97 L Carbon Dioxide 27 BUN 33 H D Creatinine 1.09 H 0.81 Glucose 160 H Calcium 9.9 Liver Function 01/20/25 Range/Units 20:04 Total Bilirubin 0.9 (0.2-1.3) mg/dL AST 117 H (14-36) U/L ALT 114 H (6-35) U/L Alkaline Phosphatase 203 H (38-126) U/L Albumin 4.1 (3.5-5.1) g/dL Assessment and Plan Assessment and plan (1) Pelvic mass in female: Code(s): R19.00 - Intra-abdominal and pelvic swelling, mass and lump, unspecified site Status: Acute Plan Acute and principal conditions 1. Left thigh cellulitis. 2. Pelvic mass. probable neoplastic mass 12.5 x 11.1 x 9 x 1 cm heterogeneous mixed solid and cystic pelvic mass, highly suspicious for gynecologic malignancy. Scattered much smaller peritoneal implants, compatible with peritoneal metastatic disease. 3. Hepatitis. unknown etiology Rx: A. Vancomycin B. Wound care C. consult QUALITY ASSURANCE ANALYST and oncology D. CEA, [place] 19-9; AFP Chronic and stable conditions 1. NIDDM2. 2. Dyslipidemia 3. Uterine ca 4. Hypertension. Miscellaneous care. 1. Code status. Full 2. Nutrition. Carb-controlled 3. VTE prophylaxis. SCDs; [facility] Quality VTE Prophylaxis VTE prophylaxis: mechanical ordered and pharmacologic ordered Hospitalist [facility] Advance Care Plan I have confirmed that the patient's Advanced Care Plan is present, code status is documented, or surrogate decision maker is listed in patient medical record.: Yes Medication Reconciliation I have utilized all available resources to obtain, update and review the patients current medications (includes all prescriptions, OTC, herbals, cannabis, and nutritional supplements).: Yes The patient is not eligible for med reconciliation; the patient is in a emergent medical situation where delaying treatment would jeopardize the patients health.: Yes
[2025-01-21] MEDS: SODIUM CHLORIDE 0.9% IV 1,000 ML 50 ML IV CONT (05:48)
[2025-01-21] MEDS: ASPIRIN 81 MG ENTERIC TABLET PO (08:32)
[2025-01-21] MEDS: SIMVASTATIN 20 MG TABLET PO (08:32)
[2025-01-21] MEDS: FAMOTIDINE 20 MG TABLET PO ×2 (08:32→22:02)
[2025-01-21] MEDS: HEPARIN SODIUM 5,000 UNITS/ML VIAL 5000 UNITS SUB-Q ×2 (08:32→22:02)
[2025-01-21] MEDS: amLODIPine BESYLATE 5 MG TABLET PO (08:32)
--- NOTE | 2025-01-21 09:33 | P.PNIM_ITS ---
Progress Note: A&P Assessment and Plan (1) Cellulitis: Qualifiers: Site of cellulitis: extremity Site of cellulitis of extremity: lower extremity Code(s): L03.90 - Cellulitis, unspecified Status: Inactive Assessment and Plan: Fluid bolus in IVF Vancomycin Induration marked from yesterday not progressing at this time Wound care consult No necrosis noted will defer surgery consult for now (2) Pelvic mass in female: Code(s): R19.00 - Intra-abdominal and pelvic swelling, mass and lump, unspecified site Status: Acute Assessment and Plan: With history of uterine cancer status post total hysterectomy probable neoplastic mass 12.5 x 11.1 x 9 x 1 cm heterogeneous mixed solid and cystic pelvic mass, highly suspicious for gynecologic malignancy. Scattered much smaller peritoneal implants, compatible with peritoneal metastatic disease. Ob and oncology consulted pending recommendations CEA, [place] 19-9; AFP Pelvic ultrasound pending (3) Type 2 diabetes mellitus without complication, without long-term current use of insulin: Code(s): E11.9 - Type 2 diabetes mellitus without complications Status: Acute Assessment and Plan: Hold home metformin while in hospital Diabetic diet And Accu-Cheks a.c. HS SSI (4) Elevated liver enzymes: Code(s): R74.8 - Abnormal levels of other serum enzymes Status: Acute Assessment and Plan: Daily CMP Trend levels Plan Miscellaneous care. 1. Code status. Full 2. Nutrition. Carb-controlled 3. VTE prophylaxis. SCDs; MACIE Time Spent With Patient Time with patient: Greater than 35 minutes Subjective Date/time seen: 01/21/25 09:33 Interval history: 84F a with a mhx significant for NIDDM2, hypertension, GERD, dyslipidemia, uterine cancer developed a new onset left thigh discomfort/pain, which when she reached out to palpate noticed a new blister which was not there when she retired to bed believes spider bite. Patient doing well, induration is seems yesterday Review of Systems Review of Systems: All systems reviewed & are unremarkable except as noted in HPI and below Exam Narrative: General: well appearing, appears stated age. HEENT: normocephalic, atraumatic. Mucous membranes moist. EOMI, PERRLA, bilateral sclera anicteric, no conjunctival injection. Neck supple without JVD, lymphadenopathy, or bruit. Respiratory: clear to ascultation bilaterally. No rales/rhonic/wheezes. Cardiovascular: Regular rate and rhythm, normal S1-S2 upon ascultation. No murmurs, rubs, or clicks. PMI is nondisplaced, capillary refill less than 3 second. Abdomen: Soft, round, no pulsatile masses, nondistended and nontender. No rebound, no guarding. No CVA tenderness, no hepatosplenomegaly. Bowel sounds present to all four quadrants. No high pitch or tinkling sounds, resonant to percussion. Extremities: No cyanosis, clubbing, or edema present. Pulses are palpable 2/2. Right thigh wound small darkened area and center, not necrotic chronic, with erythema no drainage Neuro: Alert and orientated x 4. PERRLA. Cranial nerves 2-12 intact without focal deficit. Skin: Warm, dry, and intact, without rash, erythema, or lesion. Psych: pleasant, cooperative, normal speech, normal affect, no hallucinations, no dysarthia Objective Data Vital Signs Vital Signs: Vital Signs - 24 hr 01/20/25 17:20 01/20/25 21:45 01/20/25 21:47 Temperature 98.6 F Pulse Rate 118 H Respiratory Rate 16 Blood Pressure 133/55 L 145/79 H Pulse Oximetry 93 92 94 Oxygen Delivery 01/20/25 22:00 01/20/25 22:02 01/20/25 22:15 Temperature Pulse Rate Respiratory Rate Blood Pressure 122/63 Pulse Oximetry 92 92 92 Oxygen Delivery 01/20/25 22:17 01/20/25 22:30 01/20/25 22:32 Temperature Pulse Rate Respiratory Rate Blood Pressure 122/74 143/82 H Pulse Oximetry 91 93 93 Oxygen Delivery 01/20/25 22:45 01/20/25 22:47 01/20/25 23:14 Temperature Pulse Rate 99 Respiratory Rate 17 Blood Pressure 129/90 124/65 Pulse Oximetry 91 91 99 Oxygen Delivery 01/21/25 01:00 01/21/25 01:00 01/21/25 01:41 Temperature Pulse Rate 120 H 120 H 94 Respiratory Rate 16 Blood Pressure 128/82 Pulse Oximetry 91 Oxygen Delivery 01/21/25 02:14 01/21/25 02:25 01/21/25 02:25 Temperature 98.1 F 98.1 F Pulse Rate 90 91 91 Respiratory Rate 17 16 16 Blood Pressure 116/89 133/72 133/72 Pulse Oximetry 92 95 95 Oxygen Delivery 01/21/25 04:00 01/21/25 07:00 01/21/25 08:00 Temperature 98.7 F 97.8 F Pulse Rate 97 94 78 Respiratory Rate 16 18 Blood Pressure 129/65 106/59 L Pulse Oximetry 93 94 Oxygen Delivery 01/21/25 08:00 01/21/25 08:00 Temperature Pulse Rate 86 Respiratory Rate Blood Pressure Pulse Oximetry 94 Oxygen Delivery Room Air Intake/Output Intake/Output: Intake & Output 01/18/25 01/19/25 01/20/25 01/21/25 23:59 23:59 23:59 23:59 Intake Total 1645 Balance 1645 Meds/Results Medications: Active Medications Generic Name Dose Route Start Last Admin Trade Name Freq PRN Reason Stop Dose Admin Acetaminophen 650 mg 01/21/25 05:36 Acetaminophen 325 Mg Tablet PO Q4H PRN Mild Pain (1-3) or Fever Amlodipine Besylate 5 mg 01/21/25 09:00 01/21/25 08:32 Amlodipine Besylate 5 Mg Tablet PO 5 mg DAILY MACIE Administration Aspirin 81 mg 01/21/25 09:00 01/21/25 08:32 Aspirin 81 Mg Enteric Tablet PO 81 mg QAM MACIE Administration Dextrose 12.5 gm 01/21/25 00:20 Dextrose 50% 25 Gm/50 Ml Syringe IV PUSH PRN PRN Hypoglycemia Protocol Famotidine 20 mg 01/21/25 09:00 01/21/25 08:32 Famotidine 20 Mg Tablet PO 20 mg Q12HR MACIE Administration Glucagon 1 mg 01/21/25 00:20 Glucagon For Inj 1 Mg Vial IM PRN PRN Hypoglycemia Protocol Glucose 15 gm 01/21/25 00:20 Glucose Oral Gel 15 Gm Of Glucse In 37.5 Gm Tube PO PRN PRN Hypoglycemia Protocol Heparin Sodium (Porcine) 5,000 units 01/21/25 09:00 01/21/25 08:32 Heparin Sodium 5,000 Units/Ml Vial SUB-Q 5,000 units Q12HR MACIE Administration Vancomycin HCl 1,500 mg in 500 mls @ 250 mls/hr 01/21/25 22:00 Vancomycin 1,500 Mg/Ns 500 Ml IVPB Q24H MACIE Dextrose 1,000 mls @ 100 mls/hr 01/21/25 00:20 Dextrose 5% 1,000 Ml IVPB PRN PRN Hypoglycemia Protocol Sodium Chloride 1,000 mls @ 50 mls/hr 01/21/25 05:40 01/21/25 05:48 Normal Saline Iv IV CONT 50 mls/hr .Q20H MACIE Administration Metoprolol Tartrate 25 mg 01/21/25 11:00 Metoprolol Tartrate 25 Mg Tablet PO Q12HR MACIE Morphine Sulfate 2 mg 01/21/25 00:20 Morphine Sulfate (*Crx) 2 Mg/Ml Inj IV PUSH Q2H PRN Pain Rated 7-10 Ondansetron HCl 4 mg 01/21/25 00:20 Ondansetron Inj 4 Mg/2 Ml Vial IV PUSH Q4H PRN Nausea Simvastatin 20 mg 01/21/25 09:00 01/21/25 08:32 Simvastatin 20 Mg Tablet PO 20 mg DAILY MACIE Administration Radiology Results: ITS Impressions Femur X-Ray 01/20/25 18:50 IMPRESSION: No acute or subacute fracture, as detailed above. Lower Extremity CT 01/20/25 23:54 IMPRESSION: Unremarkable CT evaluation of the left thigh with only induration of the superficial soft tissues consistent with patient's presentation Contrast-enhanced CT evaluation of the pelvis demonstrates large pelvic mass for which contrast enhanced CT of the abdomen and pelvis is recommended as this mass is not entirely included on the current study (unless this is a known finding). Abdomen/Pelvis CT 01/21/25 05:37 Impression: 12.5 x 11.1 x 9 x 1 cm heterogeneous mixed solid and cystic pelvic mass, highly suspicious for gynecologic malignancy. Please see details above. Scattered much smaller peritoneal implants, compatible with peritoneal metastatic disease. Prominent appendix, but no definite acute inflammatory change evident. Correlate clinically. Labs Labs: Laboratory Results - last 24 hr 01/20/25 01/21/25 20:04 04:00 WBC 13.8 H RBC 4.81 Hgb 14.5 Hct 45.5 MCV 94.6 MCH 30.1 MCHC 31.9 L RDW 14.3 Plt Count 334 MPV 11.8 H Immature Gran % (Auto) 0.4 Neut % (Auto) 73.1 Lymph % (Auto) 9.9 L [place] % (Auto) 12.1 H Eos % (Auto) 4.1 Baso % (Auto) 0.4 Lymph # (Auto) 1.37 [place] # (Auto) 1.7 H Eos # (Auto) 0.6 H Baso # (Auto) 0.1 Abs Immat Gran (auto) 0.05 H Absolute Neuts (auto) 10.1 H Absolute Nucleated RBC 0.000 Nucleated RBC % 0.0 ESR 21 H Sodium 137 Potassium 3.9 Chloride 97 L Carbon Dioxide 27 Anion Gap 13 H BUN 33 H D Creatinine 1.09 H 0.81 Estim Creat Clear Calc Not Reportable 52 Estimated GFR Not Reportable > 60 Glucose 160 H Lactic Acid 1.5 Calcium 9.9 Magnesium 1.6 Total Bilirubin 0.9 AST 117 H ALT 114 H Alkaline Phosphatase 203 H C-Reactive Protein 4.0 H Total Protein 7.0 Albumin 4.1 Quality VTE Prophylaxis VTE prophylaxis: mechanical ordered and pharmacologic ordered Hospitalist [facility] Advance Care Plan I have confirmed that the patient's Advanced Care Plan is present, code status is documented, or surrogate decision maker is listed in patient medical record.: Yes Medication Reconciliation I have utilized all available resources to obtain, update and review the patients current medications (includes all prescriptions, OTC, herbals, cannabis, and nutritional supplements).: Yes
[2025-01-21] MEDS: lisinopriL 10 MG TABLET PO (15:48)
[2025-01-21 16:41] LABS: Glucose Point of Care 134 mg/dl (65-105)
[2025-01-21 21:00] LABS: Glucose Point of Care 158 mg/dl (65-105)
[2025-01-21] MEDS: VANCOMYCIN 1,500 MG/NS 500 ML 1,500 MG/500 ML BAG 250 MG IVPB (22:01)
[2025-01-22] VITALS (10 sets, daily range): BP systolic 121–130; BP diastolic 50–82; PULSE 82–109; RESP 16–20; TEMP 35.8–36.8; O2SAT 90–97
[2025-01-22 05:30] LABS: Basophils Absolute Auto 0.1 K/mm3 (0.0-0.1); Basophils Percent Auto 0.5 % (0.2-1.2); Eosinophils Percent Auto 7.1 % (0-4.4); Hematocrit 37.7 % (37.0-47.0); Hemoglobin 11.9 g/dL (12.0-15.0); Immature Granulocyte Absolute 0.12 K/mm3 (0.00-0.031); Immature Granulocyte Percent A 0.8 % (0-0.5); Lymphocytes Absolute Auto 1.72 K/mm3 (0.9-3.2); Lymphocytes Percent Auto 11.7 % (18.3-44.2); Mean Corpuscular HGB Conc 31.6 g/dl (32-36); Mean Corpuscular Hemoglobin 29.6 pg (26-34); Mean Corpuscular Volume 93.8 fl (80-100); Mean Platelet Volume 11.2 fl (7.4-10.4); Monocytes Absolute Auto 1.6 K/mm3 (0.1-0.6); Monocytes Percent Auto 10.8 % (2.6-8.5); Neutrophils Absolute Auto 10.1 K/mm3 (1.3-6.7); Neutrophils Percent Auto 69.1 % (45.5-73.1); Platelet Count Result 263 k/mm3 (150-375); Red Blood Count 4.02 M/mm3 (4.2-5.4); Red Cell Distribution Width 14.3 % (11.5-14.5); White Blood Count 14.7 K/mm3 (4.5-10.0)
[2025-01-22 05:41] LABS: Alanine Aminotransferase 79 U/L (6-35); Albumin Level 2.9 g/dL (3.5-5.1); Alkaline Phosphatase 139 U/L (38-126); Anion Gap 7 mmol/L (4-12); Aspartate Amino Transferase 80 U/L (14-36); Bilirubin,Total 0.7 mg/dL (0.2-1.3); Blood Urea Nitrogen 17 mg/dL (7-17); Calcium 7.7 mg/dL (8.4-10.2); Carbon Dioxide 27 mmol/L (22-30); Chloride 104 mmol/L (98-107); Estimated CRCL calculation 53 ml/min; Estimated Glomerular Filt Rate > 60; Glucose 126 mg/dL (65-110); Potassium 3.2 mmol/L (3.4-5.0); Sodium 138 mmol/L (137-145)
[2025-01-22] MEDS: SODIUM CHLORIDE 0.9% IV 1,000 ML 50 ML IV CONT (06:17)
--- NOTE | 2025-01-22 07:44 | P.CONS_ITS ---
Assessment and Plan Assessment and plan (1) Pelvic mass in female: Code(s): R19.00 - Intra-abdominal and pelvic swelling, mass and lump, unspecified site Status: Acute Assessment and Plan: 84-year-old female with a large pelvic mass. Tumor markers were ordered today. She is uncertain if she wants treatment for the mass. A CT of the abdomen and pelvis did not show a pelvic mass, indicating a fairly recent development. I asked her to meet with a gynecology oncologist. She will follow-up in my office. We will make arrangements for gynecology Oncology consult and review tumor marker results. HPI Data of Consult Date/Time: 01/22/25 07:44 Requesting Physician: Anselmo Hurd PA-C Primary Care Provider: Jovany Escoto MD Consult Narrative Narrative: Alcira Contreras is a 84 year old female. An 8-9 cm pelvic mass was found incidentally on a CT scan the abdomen and pelvis. This mass is asymptomatic. She denies any pelvic pain. She denies any pelvic pressure. She denies any rectal pressure our bladder pressure. She denies any vaginal bleeding. She denies any abnormal vaginal discharge. She denies any low back pain. Review of Systems 2 Review of Systems: All systems reviewed & are unremarkable except as noted in HPI and below Constitutional: Constitutional: Denies chills, Denies fatigue, Denies fever(s) and Denies weakness Eyes: Eyes: Denies blurry vision, Denies change in vision, Denies loss of peripheral vision, Denies loss of vision, Denies other visual disturbances and Denies eye pain ENT: Denies vertigo, Denies dizziness, Denies hearing loss, Denies mouth pain, Denies nasal obstruction, Denies neck mass and Denies neck pain Cardiovascular: Cardiovascular: Denies chest pain, Denies diaphoresis, Denies syncope, Denies leg edema and Denies dyspnea Respiratory: Respiratory: Denies chest congestion, Denies cough, Denies hemoptysis, Denies dyspnea and Denies wheezing Gastrointestinal: Gastrointestinal: Denies abdominal pain, Denies constipation, Denies diarrhea, Denies nausea and Denies vomiting Genitourinary: Genitourinary: Denies hematuria, Denies change in libido, Denies nocturia, Denies genital lesions, Denies flank pain and Denies urinary urgency Musculoskeletal: Musculoskeletal: Denies abnormal gait, Denies back pain, Denies myalgias, Denies arthralgias, Denies joint swelling, Denies muscle weakness and Denies neck pain Integumentary/Breasts: Skin/Breast: Denies swelling, Denies breast pain, Denies breast mass, Denies dry skin, Denies nipple discharge, Denies unusual bruising and Denies jaundice Neurologic: Denies Neuro-related abnormal movements, Denies Abnormal speech present, Denies abnormal gait, Denies behavioral changes, Denies confusion, Denies vertigo, Denies dizziness, Denies syncope, Denies loss of vision, Denies memory loss, Denies convulsions and Denies weakness Psychiatric: Psychiatric: Denies abnormal sleep pattern, Denies behavioral changes, Denies change in libido, Denies confusion, Denies depression, Denies anhedonia and Denies memory loss Endocrine: Endocrine: Reports no additional endocrine complaints, Denies change in libido and Denies fatigue Hematologic/Lymphatic: Hematologic/Lymphatic: Reports no additional hematologic/lymphatic complaints Allergic/Immunologic: Allergic/Immunologic: Reports no additional allergic/immunologic complaints and Denies wheezing PMFSH Past Medical History Medical History Obesity 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 History of tobacco use Hypertensive chronic kidney disease History of uterine cancer Arthritis Essential (primary) hypertension Mixed hyperlipidemia Primary osteoarthritis of both knees Type 2 diabetes mellitus without complication, without long-term current use of insulin Surgical History Surgical History History of total hysterectomy Family History Family History Mother Hypertension Family history of cardiovascular disease Father Cerebrovascular accident, Onset Age: 69 Sibling Family history of malignant neoplasm, Onset Age: 75 Social History Social History Social History: Smoking packs per day: 2 Smoking cigarettes per day: 40.0 Years smoked: 50 Smoking pack-years: 100.00 Smoking status: Former smoker Tobacco type: cigarettes Second hand tobacco smoke exposure: No Smoking end date: 10/16/02 Alcohol intake: current Drinks per week: 1 Alcohol use details: STATES 1 DRINK/MONTH Substance use: never Substance use type: does not use Do You Feel Safe in your Home?: Yes Lack of Transportation: No Lack of Food: Never True Current Housing: I Have Housing Concerned About Future Housing: No Difficulty Paying Gas/Electric Bills: No Difficulty Paying for Meds: No Currently Unemployed: No Education: High School Diploma/GED Difficulty w/ Childcare or Family Care: No Living arrangements: alone Occupation/Education: retired Gender identity (if verbalized by the patient): Female Sexual Orientation (if Verbalized by the Patient): Straight or Heterosexual Spiritual care concerns: No Meds Home Medications and Allergies Home Medications ?Medication ?Instructions ?Recorded ?Confirmed ?Type aspirin 81 mg capsule See Rx Instructions .Route .COMPLEX 12/13/21 01/21/25 History vit C 250 mg-vit E 90 mg-zinc 40 1 tablet PO BID 12/13/21 01/21/25 History mg-copper 1 [id number] capsule (PreserVision AREDS-2) blood-glucose meter (Contour Next See Rx Instructions .Route 12/24/21 01/21/25 Rx EZ Meter) .COMPLEX #1 ea lancets (Microlet Lancet) See Rx Instructions .Route 03/04/22 01/21/25 Rx .COMPLEX #100 ea furosemide 20 mg tablet See Rx Instructions .Route 12/29/22 01/21/25 Rx .COMPLEX #90 tabs blood sugar diagnostic (Contour #50 strips 07/11/24 01/21/25 Rx Next Test Strips) benazepril 10 mg tablet See Rx Instructions .Route 09/06/24 01/21/25 Rx .COMPLEX #90 tabs cholecalciferol (vitamin D3) 1,250 1,250 mcg PO WEEKLY #12 caps 10/18/24 01/21/25 Rx mcg (50,000 unit) capsule simvastatin 40 mg tablet See Rx Instructions .Route 10/30/24 01/21/25 Rx .COMPLEX #90 tabs metformin 500 mg tablet See Rx Instructions .Route 11/11/24 01/21/25 Rx .COMPLEX #90 tabs famotidine 20 mg tablet See Rx Instructions .Route 12/12/24 01/21/25 Rx .COMPLEX #180 tabs amlodipine 10 mg tablet See Rx Instructions .Route 01/16/25 01/21/25 Rx .COMPLEX #90 tabs metoprolol tartrate 25 mg tablet See Rx Instructions .Route 01/21/25 Rx .COMPLEX #180 tabs Allergies Allergy/AdvReac Type Severity Reaction Status Date / Time No Known Allergies Allergy Verified 01/18/25 12:17 Vital Signs Vital Signs - 24 hr 01/21/25 08:00 01/21/25 08:00 01/21/25 08:00 Temperature 97.8 F Pulse Rate 78 86 Respiratory Rate 18 Blood Pressure 106/59 L Pulse Oximetry 94 94 Oxygen Delivery Room Air 01/21/25 10:34 01/21/25 10:36 01/21/25 12:00 Temperature Pulse Rate 111 H 78 Respiratory Rate Blood Pressure 121/59 L Pulse Oximetry Oxygen Delivery 01/21/25 12:00 01/21/25 15:48 01/21/25 16:00 Temperature 97.6 F Pulse Rate 75 86 Respiratory Rate 18 Blood Pressure 112/62 116/75 Pulse Oximetry 95 Oxygen Delivery 01/21/25 19:58 01/21/25 19:58 01/21/25 20:00 Temperature 98.1 F Pulse Rate 86 86 98 Respiratory Rate 18 18 Blood Pressure 132/63 Pulse Oximetry 95 94 Oxygen Delivery Room Air 01/22/25 00:00 01/22/25 00:00 01/22/25 04:00 Temperature 97.7 F 97.6 F Pulse Rate 86 89 87 Respiratory Rate 18 20 Blood Pressure 123/56 L 121/50 L Pulse Oximetry 91 90 Oxygen Delivery 01/22/25 04:00 Temperature Pulse Rate 85 Respiratory Rate Blood Pressure Pulse Oximetry Oxygen Delivery Exam 2 Const: General: cooperative, healthy appearing, comfortable and no acute distress Orientation/consciousness: oriented to person, oriented to place and oriented to time HENMT: Head: normal to inspection Ears: external ears normal F elaina/Nose/Sinus: Normal external nose present and normal facial exam Face and sinus: normal facial exam Eyes: General: appearance normal, both eyes and all related structures Neck: Neck: normal visual inspection, trachea midline and supple Resp: Auscultation: clear to auscultation bilaterally, no crackles, no rales, no rhonchi and no wheezes Cardio: Rate: regular rate Rhythm: regular rhythm Heart sounds: no click, no murmurs and no rubs GI: GI Palp: No abdominal tenderness, No Soft to palpation, No Tenderness to palpation present (GI) and No Palpable mass present Auscultation: normal bowel sounds Skin: General skin exam: normal color and no rashes or lesions noted Neuro: General: oriented to person, oriented to place and oriented to time Extrem: General: normal to inspection, no joint enlargement, no clubbing, cyanosis or edema, no pedal edema and no calf tenderness Psych: Appearance: grossly normal Mental Status: mental status grossly normal Speech and movement: Normal speech and movement present Results Labs 01/22/25 05:06 01/22/25 05:06 Labs: Short CBC 01/22/25 Range/Units 05:06 WBC 14.7 H (4.5-10.0) K/mm3 Hgb 11.9 L (12.0-15.0) g/dL Hct 37.7 (37.0-47.0) % Plt Count 263 (150-375) k/mm3 BMP 01/22/25 05:06 Sodium 138 Potassium 3.2 L Chloride 104 Carbon Dioxide 27 BUN 17 D Creatinine 0.82 Glucose 126 H Calcium 7.7 L Liver Function 01/22/25 Range/Units 05:06 Total Bilirubin 0.7 (0.2-1.3) mg/dL AST 80 H (14-36) U/L ALT 79 H (6-35) U/L Alkaline Phosphatase 139 H (38-126) U/L Albumin 2.9 L (3.5-5.1) g/dL
--- NOTE | 2025-01-22 08:28 | P.PNIM_ITS ---
Progress Note: A&P Assessment and Plan (1) Cellulitis: Qualifiers: Site of cellulitis: extremity Site of cellulitis of extremity: lower extremity Code(s): L03.90 - Cellulitis, unspecified Status: Acute Assessment and Plan: * Fluid bolus in IVF * Vancomycin * Induration marked from yesterday seems to be worsening * Wound care consult * Surgery consult pending (2) Pelvic mass in female: Code(s): R19.00 - Intra-abdominal and pelvic swelling, mass and lump, unspecified site Status: Acute Assessment and Plan: * With history of uterine cancer status post total hysterectomy * probable neoplastic mass 12.5 x 11.1 x 9 x 1 cm heterogeneous mixed solid and cystic pelvic mass, highly suspicious for gynecologic malignancy. Scattered much smaller peritoneal implants, compatible with peritoneal metastatic disease. * OB/Oncology consulted * OB okay with f/u outpt * CEA, CA 19-9; AFP * Pelvic US: Mass occupying the midline and right adnexal area which may indicate ovarian mass. Further evaluation advised. (3) Type 2 diabetes mellitus without complication, without long-term current use of insulin: Code(s): E11.9 - Type 2 diabetes mellitus without complications Status: Acute Assessment and Plan: * Hold home metformin while in hospital * Diabetic diet * And Accu-Cheks a.c. HS * SSI (4) Elevated liver enzymes: Code(s): R74.8 - Abnormal levels of other serum enzymes Status: Acute Assessment and Plan: * Daily CMP * Trend levels Plan Miscellaneous care. 1. Code status. Full 2. Nutrition. Carb-controlled 3. VTE prophylaxis. SCDs; MACIE Time Spent With Patient Time: Subjective Date/time seen: 01/22/25 08:28 Interval history: 84F a with a mhx significant for NIDDM2, hypertension, GERD, dyslipidemia, uterine cancer developed a new onset left thigh discomfort/pain, which when she reached out to palpate noticed a new blister which was not there when she retired to bed believes spider bite. 01/22/2025 Patient is sitting comfortable in bed at time of examination. Denies any CP, SOB, n/v, or abdominal pain. Does continue to endorse pain around the site of cellulitis. Erythema does appear to be continuing to expand outside marked line from yesterday. Will continue IV abx and will consult surgery for possible necrosis of tissue. Seen by OB, okay with outpt management of pelvic mass. Tumor marker results pending. Review of Systems Review of Systems: All systems reviewed & are unremarkable except as noted in HPI and below Exam Narrative: General: well appearing, appears stated age. HEENT: normocephalic, atraumatic. Mucous membranes moist. EOMI, PERRLA, bilateral sclera anicteric, no conjunctival injection. Neck supple without JVD, lymphadenopathy, or bruit. Respiratory: clear to ascultation bilaterally. No rales/rhonic/wheezes. Cardiovascular: Regular rate and rhythm, normal S1-S2 upon ascultation. No murmurs, rubs, or clicks. PMI is nondisplaced, capillary refill less than 3 second. Abdomen: Soft, round, no pulsatile masses, nondistended and nontender. No rebound, no guarding. No CVA tenderness, no hepatosplenomegaly. Bowel sounds present to all four quadrants. No high pitch or tinkling sounds, resonant to percussion. Extremities: No cyanosis, clubbing, or edema present. Pulses are palpable 2/2. Right thigh wound small darkened area and center, not necrotic chronic, with erythema no drainage Neuro: Alert and orientated x 4. PERRLA. Cranial nerves 2-12 intact without focal deficit. Skin: Warm, dry, and intact, without rash, erythema, or lesion. Psych: pleasant, cooperative, normal speech, normal affect, no hallucinations, no dysarthia Const: General: comfortable HENMT: Ears: TM's normal bilaterally Mouth: Yes moist mucous membranes Eyes: General: appearance normal, both eyes and all related structures Pupils: Equal, round and reactive pupils present EOM: EOMs intact bilaterally Neck: Neck: supple Resp: Effort & Inspection: normal respiratory effort Auscultation: clear to auscultation bilaterally Cardio: Rate: regular rate Rhythm: regular rhythm GI: Inspection: distended Auscultation: normal bowel sounds Skin: General skin exam: erythema, lesion and wounds noted Lesions: lesion noted Wounds: wounds noted Neuro: General: gait normal Cranial nerves: Yes Equal, round and reactive pupils present Motor exam (neuro): 5/5 motor strength present throughout, Normal motor muscle tone present throughout and Abnormal motor strength present Psych: Mental Status: mental status grossly normal Affect: Anxious affect present Objective Data Vital Signs Vital Signs: Vital Signs - 24 hr 01/21/25 10:34 01/21/25 10:36 01/21/25 12:00 Temperature Pulse Rate 111 H 78 Respiratory Rate Blood Pressure 121/59 L Pulse Oximetry Oxygen Delivery 01/21/25 12:00 01/21/25 15:48 01/21/25 16:00 Temperature 97.6 F Pulse Rate 75 86 Respiratory Rate 18 Blood Pressure 112/62 116/75 Pulse Oximetry 95 Oxygen Delivery 01/21/25 19:58 01/21/25 19:58 01/21/25 20:00 Temperature 98.1 F Pulse Rate 86 86 98 Respiratory Rate 18 18 Blood Pressure 132/63 Pulse Oximetry 95 94 Oxygen Delivery Room Air 01/22/25 00:00 01/22/25 00:00 01/22/25 04:00 Temperature 97.7 F 97.6 F Pulse Rate 86 89 87 Respiratory Rate 18 20 Blood Pressure 123/56 L 121/50 L Pulse Oximetry 91 90 Oxygen Delivery 01/22/25 04:00 Temperature Pulse Rate 85 Respiratory Rate Blood Pressure Pulse Oximetry Oxygen Delivery Intake/Output Intake/Output: Intake & Output 01/19/25 01/20/25 01/21/25 01/22/25 23:59 23:59 23:59 23:59 Intake Total 2905 1540 Balance 2905 1540 Meds/Results Medications: Active Medications Generic Name Dose Route Start Last Admin Trade Name Freq PRN Reason Stop Dose Admin Acetaminophen 650 mg 01/21/25 05:36 Acetaminophen 325 Mg Tablet PO Q4H PRN Mild Pain (1-3) or Fever Amlodipine Besylate 5 mg 01/21/25 09:00 01/21/25 08:32 Amlodipine Besylate 5 Mg Tablet PO 5 mg DAILY MACIE Administration Aspirin 81 mg 01/21/25 09:00 01/21/25 08:32 Aspirin 81 Mg Enteric Tablet PO 81 mg QAM MACIE Administration Dextrose 12.5 gm 01/21/25 00:20 Dextrose 50% 25 Gm/50 Ml Syringe IV PUSH PRN PRN Hypoglycemia Protocol Famotidine 20 mg 01/21/25 09:00 01/21/25 22:02 Famotidine 20 Mg Tablet PO 20 mg Q12HR MACIE Administration Furosemide 20 mg 01/22/25 08:00 Furosemide 20 Mg Tablet BY MOUTH Q48H MACIE Glucagon 1 mg 01/21/25 00:20 Glucagon For Inj 1 Mg Vial IM PRN PRN Hypoglycemia Protocol Glucose 15 gm 01/21/25 00:20 Glucose Oral Gel 15 Gm Of Glucse In 37.5 Gm Tube PO PRN PRN Hypoglycemia Protocol Heparin Sodium (Porcine) 5,000 units 01/21/25 09:00 01/21/25 22:02 Heparin Sodium 5,000 Units/Ml Vial SUB-Q 5,000 units Q12HR MACIE Administration Vancomycin HCl 1,500 mg in 500 mls @ 250 mls/hr 01/21/25 22:00 01/21/25 22:01 Vancomycin 1,500 Mg/Ns 500 Ml IVPB 250 mls/hr Q24H MACIE Administration Dextrose 1,000 mls @ 100 mls/hr 01/21/25 00:20 Dextrose 5% 1,000 Ml IVPB PRN PRN Hypoglycemia Protocol Sodium Chloride 1,000 mls @ 50 mls/hr 01/21/25 05:40 01/22/25 06:17 Normal Saline Iv IV CONT 50 mls/hr .Q20H MACIE Administration Insulin Aspart 2 - 5 units 01/21/25 17:00 01/21/25 16:49 Insulin Aspart (*Bkc) 100 Units/Ml SUB-Q Not Given TIDWM MACIE Protocol Lisinopril 10 mg 01/21/25 14:30 01/21/25 15:48 Lisinopril 10 Mg Tablet PO 10 mg DAILY MACIE Administration Metoprolol Tartrate 25 mg 01/21/25 11:00 01/21/25 22:02 Metoprolol Tartrate 25 Mg Tablet PO 25 mg Q12HR MACIE Administration Morphine Sulfate 2 mg 01/21/25 00:20 Morphine Sulfate (*Crx) 2 Mg/Ml Inj IV PUSH Q2H PRN Pain Rated 7-10 Ondansetron HCl 4 mg 01/21/25 00:20 Ondansetron Inj 4 Mg/2 Ml Vial IV PUSH Q4H PRN Nausea Simvastatin 20 mg 01/21/25 09:00 01/21/25 08:32 Simvastatin 20 Mg Tablet PO 20 mg DAILY MACIE Administration Radiology Results: ITS Impressions Femur X-Ray 01/20/25 18:50 IMPRESSION: No acute or subacute fracture, as detailed above. Lower Extremity CT 01/20/25 23:54 IMPRESSION: Unremarkable CT evaluation of the left thigh with only induration of the superficial soft tissues consistent with patient's presentation Contrast-enhanced CT evaluation of the pelvis demonstrates large pelvic mass for which contrast enhanced CT of the abdomen and pelvis is recommended as this mass is not entirely included on the current study (unless this is a known finding). Abdomen/Pelvis CT 01/21/25 05:37 Impression: 12.5 x 11.1 x 9 x 1 cm heterogeneous mixed solid and cystic pelvic mass, highly suspicious for gynecologic malignancy. Please see details above. Scattered much smaller peritoneal implants, compatible with peritoneal metastatic disease. Prominent appendix, but no definite acute inflammatory change evident. Correlate clinically. Pelvis Ultrasound 01/21/25 15:07 IMPRESSION: Mass occupying the midline and right adnexal area which may indicate ovarian mass. Further evaluation advised. Labs Labs: Laboratory Results - last 24 hr 01/21/25 01/21/25 01/22/25 16:33 20:56 05:06 WBC 14.7 H RBC 4.02 L Hgb 11.9 L Hct 37.7 MCV 93.8 MCH 29.6 MCHC 31.6 L RDW 14.3 Plt Count 263 MPV 11.2 H Immature Gran % (Auto) 0.8 H Neut % (Auto) 69.1 Lymph % (Auto) 11.7 L [place] % (Auto) 10.8 H Eos % (Auto) 7.1 H Baso % (Auto) 0.5 Lymph # (Auto) 1.72 Frederick # (Auto) 1.6 H Eos # (Auto) 1.0 H Baso # (Auto) 0.1 Abs Immat Gran (auto) 0.12 H Absolute Neuts (auto) 10.1 H Absolute Nucleated RBC 0.000 Nucleated RBC % 0.0 Sodium 138 Potassium 3.2 L Chloride 104 Carbon Dioxide 27 Anion Gap 7 BUN 17 D Creatinine 0.82 Estim Creat Clear Calc 53 Estimated GFR > 60 Glucose 126 H POC Capillary Glucose 134 H 158 H Calcium 7.7 L Total Bilirubin 0.7 AST 80 H ALT 79 H Alkaline Phosphatase 139 H Total Protein 6.0 L Albumin 2.9 L Quality VTE Prophylaxis VTE prophylaxis: mechanical ordered and pharmacologic ordered
[2025-01-22 08:50] LABS: Glucose Point of Care 149 mg/dl (65-105)
[2025-01-22] MEDS: SIMVASTATIN 20 MG TABLET PO (09:43)
[2025-01-22] MEDS: amLODIPine BESYLATE 5 MG TABLET PO (09:44)
[2025-01-22] MEDS: ASPIRIN 81 MG ENTERIC TABLET PO (09:45)
[2025-01-22] MEDS: FUROSEMIDE 20 MG TABLET BY MOUTH (09:45)
[2025-01-22] MEDS: lisinopriL 10 MG TABLET PO (09:45)
[2025-01-22] MEDS: HEPARIN SODIUM 5,000 UNITS/ML VIAL 5000 UNITS SUB-Q ×2 (09:45→20:27)
[2025-01-22] MEDS: FAMOTIDINE 20 MG TABLET PO ×2 (09:45→20:27)
[2025-01-22] MEDS: METOPROLOL TARTRATE 25 MG TABLET PO ×2 (09:50→20:27)
[2025-01-22] MEDS: POTASSIUM BICARBONATE 25 MEQ TABEF PO (09:53)
[2025-01-22 11:38] LABS: Glucose Point of Care 192 mg/dl (65-105)
--- NOTE | 2025-01-22 12:36 | P.CONGS_ITS ---
Assessment and Plan Assessment and plan (1) Cellulitis: Qualifiers: Site of cellulitis: extremity Site of cellulitis of extremity: lower extremity Code(s): L03.90 - Cellulitis, unspecified Status: Acute Assessment and Plan: There is localized cellulitis on the patient's right medial upper thigh. No evidence of an abscess on CT or on exam. Etiology is unclear. She did not recall any recent insect bites. Would recommend to continue IV antibiotics and will monitor for now. If she develops fluctuance or clinical findings suggestive of an abscess, then she may need an incision and drainage, but this is not indicated at this time. Will reassess again tomorrow. (2) Type 2 diabetes mellitus without complication, without long-term current use of insulin: Code(s): E11.9 - Type 2 diabetes mellitus without complications Status: Acute Assessment and Plan: Hgb A1C in August 2024 was 6.3. Management per Hospitalist. (3) Pelvic mass: Code(s): R19.00 - Intra-abdominal and pelvic swelling, mass and lump, unspecified site Status: Acute Assessment and Plan: Large pelvic mass incidentally found on CT concerning for gynecologic malignancy, possible ovarian cancer. Gynecology recommending outpatient Gynecology Oncology follow-up, which would be appropriate. Plan I have discussed the patient's case and plan of care with Dr. Sierra. History of Present Illness Consult details Consult date: 01/22/25 Reason for consult: other (Cellulitis) Requesting physician: Anselmo Hurd PA-C Narrative: This is an 84-year-old woman with a history of non insulin-dependent type 2 diabetes mellitus, hypertension, and other medical problems, who we have been asked to see in surgical consultation for cellulitis. She presented to the ED 2 days ago with complaints of left medial thigh pain for 4 days. She noticed some pain in the middle of the night and reached to feel that area, and noticed a blister that was not there before she went to bed. After looking at this area, the skin was red and tender to touch. The blister ruptured and she eventually presented to an urgent care on Monday, where she was prescribed doxycycline. She initially was taking the medication as prescribed. She developed nausea and vomiting. She felt her symptoms were progressing and redness was spreading, therefore she came into the ED for evaluation. [place] [address], which have been repeated today [place] [address]. Lower extremity CT scan showed induration of the superficial soft tissues, but no abscess. Also incidentally found on CT was a large pelvic mass not completely identified. Subsequently, she had a CT scan of the abdomen and pelvis that showed a 12.5 x 11.1 by 9 cm mixed solid and cystic pelvic mass highly suspicious for gynecologic malignancy, scattered small peritoneal implants compatible with peritoneal metastatic disease, and a prominent appendix without acute inflammatory changes. She was admitted and started on IV vancomycin. Gynecology was consulted for the pelvic mass and recommended outpatient follow- up with Gynecology Oncology. Review of Systems 2 Review of Systems: All systems reviewed & are unremarkable except as noted in HPI and below PMFSH Past Medical History Medical History Obesity 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 History of tobacco use Hypertensive chronic kidney disease History of uterine cancer Arthritis Essential (primary) hypertension Mixed hyperlipidemia Primary osteoarthritis of both knees Type 2 diabetes mellitus without complication, without long-term current use of insulin Surgical History Surgical History History of total hysterectomy Family History Family History Mother Hypertension Family history of cardiovascular disease Father Cerebrovascular accident, Onset Age: 69 Sibling Family history of malignant neoplasm, Onset Age: 75 Social History Social History Social History: Smoking packs per day: 2 Smoking cigarettes per day: 40.0 Years smoked: 50 Smoking pack-years: 100.00 Smoking status: Former smoker Tobacco type: cigarettes Second hand tobacco smoke exposure: No Smoking end date: 10/16/02 Alcohol intake: current Drinks per week: 1 Alcohol use details: STATES 1 DRINK/MONTH Substance use: never Substance use type: does not use Do You Feel Safe in your Home?: Yes Lack of Transportation: No Lack of Food: Never True Current Housing: I Have Housing Concerned About Future Housing: No Difficulty Paying Gas/Electric Bills: No Difficulty Paying for Meds: No Currently Unemployed: No Education: High School Diploma/GED Difficulty w/ Childcare or Family Care: No Living arrangements: alone Occupation/Education: retired Gender identity (if verbalized by the patient): Female Sexual Orientation (if Verbalized by the Patient): Straight or Heterosexual Spiritual care concerns: No Meds Home Medications and Allergies Home Medications ?Medication ?Instructions ?Recorded ?Confirmed ?Type aspirin 81 mg capsule See Rx Instructions .Route .COMPLEX 12/13/21 01/21/25 History vit C 250 mg-vit E 90 mg-zinc 40 1 tablet PO BID 12/13/21 01/21/25 History mg-copper 1 [id number] capsule (PreserVision AREDS-2) blood-glucose meter (Contour Next See Rx Instructions .Route 12/24/21 01/21/25 Rx EZ Meter) .COMPLEX #1 ea lancets (Microlet Lancet) See Rx Instructions .Route 03/04/22 01/21/25 Rx .COMPLEX #100 ea furosemide 20 mg tablet See Rx Instructions .Route 12/29/22 01/21/25 Rx .COMPLEX #90 tabs blood sugar diagnostic (Contour #50 strips 07/11/24 01/21/25 Rx Next Test Strips) benazepril 10 mg tablet See Rx Instructions .Route 09/06/24 01/21/25 Rx .COMPLEX #90 tabs cholecalciferol (vitamin D3) 1,250 1,250 mcg PO WEEKLY #12 caps 10/18/24 01/21/25 Rx mcg (50,000 unit) capsule simvastatin 40 mg tablet See Rx Instructions .Route 10/30/24 01/21/25 Rx .COMPLEX #90 tabs metformin 500 mg tablet See Rx Instructions .Route 11/11/24 01/21/25 Rx .COMPLEX #90 tabs famotidine 20 mg tablet See Rx Instructions .Route 12/12/24 01/21/25 Rx .COMPLEX #180 tabs amlodipine 10 mg tablet See Rx Instructions .Route 01/16/25 01/21/25 Rx .COMPLEX #90 tabs metoprolol tartrate 25 mg tablet See Rx Instructions .Route 01/21/25 Rx .COMPLEX #180 tabs Allergies Allergy/AdvReac Type Severity Reaction Status Date / Time No Known Allergies Allergy Verified 01/18/25 12:17 Vital Signs Vital Signs - 24 hr 01/21/25 15:48 01/21/25 16:00 01/21/25 19:58 Temperature Pulse Rate 86 86 Respiratory Rate 18 Blood Pressure 116/75 Pulse Oximetry 95 Oxygen Delivery Room Air 01/21/25 19:58 01/21/25 20:00 01/22/25 00:00 Temperature 98.1 F 97.7 F Pulse Rate 86 98 86 Respiratory Rate 18 18 Blood Pressure 132/63 123/56 L Pulse Oximetry 94 91 Oxygen Delivery 01/22/25 00:00 01/22/25 04:00 01/22/25 04:00 Temperature 97.6 F Pulse Rate 89 87 85 Respiratory Rate 20 Blood Pressure 121/50 L Pulse Oximetry 90 Oxygen Delivery 01/22/25 08:00 01/22/25 09:50 Temperature Pulse Rate 99 Respiratory Rate Blood Pressure Pulse Oximetry Oxygen Delivery Room Air Exam 2 Const: General: comfortable and no acute distress Nutritional Appearance: a verage body habitus Orientation/consciousness: patient oriented x3 HENMT: Head: normocephalic and atraumatic Ears: hearing grossly normal bilaterally Mouth: Yes moist mucous membranes Eyes: General: appearance normal, both eyes and all related structures P upils: Equal, round and reactive pupils present Neck: Neck: normal visual inspection and full ROM Resp: Effort & Inspection: no respiratory distress Auscultation: clear to auscultation bilaterally Cardio: Rate: regular rate Rhythm: regular rhythm Peripheral pulses: P eripheral pulses 2+ throughout GI: Inspection: non-distended GI Palp: Yes Soft to palpation, No Tenderness to palpation present (GI), No Guarding due to palpation present (GI) and No Rebound tenderness present Auscultation: normal bowel sounds Skin: General skin exam: normal color Other: There is an area of erythema with induration to the right medial upper thigh, and a central area of darkened area in the center. No fluctuance or purulent drainage. The erythema has spread slightly outside of the demarcated lines from when she was admitted, but there is no streaking and the area is localized. Neuro: General: moves all extremities and no focal motor deficits Speech: n ormal speech Motor exam (neuro): 5/5 motor strength present throughout Extrem: General: normal to inspection and no edema Psych: Mental Status: mental status grossly normal Attitude: cooperative Insight: Good insight present (Psych) Judgement: Good judgement present (Psych) Results Labs 01/22/25 05:06 01/22/25 05:06 Labs: Abnormal lab results 01/21/25 01/21/25 01/22/25 Range/Units 16:33 20:56 05:06 WBC 14.7 H (4.5-10.0) K/mm3 RBC 4.02 L (4.2-5.4) M/mm3 Hgb 11.9 L (12.0-15.0) g/dL MCHC 31.6 L (32-36) g/dl MPV 11.2 H (7.4-10.4) fl Immature Gran % (Auto) 0.8 H (0-0.5) % Lymph % (Auto) 11.7 L (18.3-44.2) % Chase % (Auto) 10.8 H (2.6-8.5) % Eos % (Auto) 7.1 H (0-4.4) % Chase # (Auto) 1.6 H (0.1-0.6) K/mm3 Eos # (Auto) 1.0 H (0-0.3) K/mm3 Abs Immat Gran (auto) 0.12 H (0.00-0.031) K/mm3 Absolute Neuts (auto) 10.1 H (1.3-6.7) K/mm3 Potassium 3.2 L (3.4-5.0) mmol/L Glucose 126 H (65-110) mg/dL POC Capillary Glucose 134 H 158 H (65-105) mg/dl Calcium 7.7 L (8.4-10.2) mg/dL AST 80 H (14-36) U/L ALT 79 H (6-35) U/L Alkaline Phosphatase 139 H (38-126) U/L Total Protein 6.0 L (6.3-8.2) g/dL Albumin 2.9 L (3.5-5.1) g/dL 01/22/25 01/22/25 Range/Units 08:44 11:28 WBC (4.5-10.0) K/mm3 RBC (4.2-5.4) M/mm3 Hgb (12.0-15.0) g/dL MCHC (32-36) g/dl MPV (7.4-10.4) fl Immature Gran % (Auto) (0-0.5) % Lymph % (Auto) (18.3-44.2) % Chase % (Auto) (2.6-8.5) % Eos % (Auto) (0-4.4) % Chase # (Auto) (0.1-0.6) K/mm3 Eos # (Auto) (0-0.3) K/mm3 Abs Immat Gran (auto) (0.00-0.031) K/mm3 Absolute Neuts (auto) (1.3-6.7) K/mm3 Potassium (3.4-5.0) mmol/L Glucose (65-110) mg/dL POC Capillary Glucose 149 H 192 H (65-105) mg/dl Calcium (8.4-10.2) mg/dL AST (14-36) U/L ALT (6-35) U/L Alkaline Phosphatase (38-126) U/L Total Protein (6.3-8.2) g/dL Albumin (3.5-5.1) g/dL Diabetes panel 01/22/25 Range/Units 05:06 Sodium 138 (137-145) mmol/L Potassium 3.2 L (3.4-5.0) mmol/L Chloride 104 (98-107) mmol/L Carbon Dioxide 27 (22-30) mmol/L BUN 17 D (7-17) mg/dL Creatinine 0.82 (0.7-1.0) mg/dL Glucose 126 H (65-110) mg/dL Calcium 7.7 L (8.4-10.2) mg/dL AST 80 H (14-36) U/L ALT 79 H (6-35) U/L Alkaline Phosphatase 139 H (38-126) U/L Total Protein 6.0 L (6.3-8.2) g/dL Albumin 2.9 L (3.5-5.1) g/dL Calcium panel 01/22/25 Range/Units 05:06 Calcium 7.7 L (8.4-10.2) mg/dL Albumin 2.9 L (3.5-5.1) g/dL Pituitary panel 01/22/25 Range/Units 05:06 Sodium 138 (137-145) mmol/L Potassium 3.2 L (3.4-5.0) mmol/L Chloride 104 (98-107) mmol/L Carbon Dioxide 27 (22-30) mmol/L BUN 17 D (7-17) mg/dL Creatinine 0.82 (0.7-1.0) mg/dL Glucose 126 H (65-110) mg/dL Calcium 7.7 L (8.4-10.2) mg/dL Adrenal panel 01/22/25 Range/Units 05:06 Sodium 138 (137-145) mmol/L Potassium 3.2 L (3.4-5.0) mmol/L Chloride 104 (98-107) mmol/L Carbon Dioxide 27 (22-30) mmol/L BUN 17 D (7-17) mg/dL Creatinine 0.82 (0.7-1.0) mg/dL Glucose 126 H (65-110) mg/dL Calcium 7.7 L (8.4-10.2) mg/dL Total Bilirubin 0.7 (0.2-1.3) mg/dL AST 80 H (14-36) U/L ALT 79 H (6-35) U/L Alkaline Phosphatase 139 H (38-126) U/L Total Protein 6.0 L (6.3-8.2) g/dL Albumin 2.9 L (3.5-5.1) g/dL All other labs normal. Imaging Additional studies: ITS Impressions Femur X-Ray 01/20/25 18:50 IMPRESSION: No acute or subacute fracture, as detailed above. Lower Extremity CT 01/20/25 23:54 IMPRESSION: Unremarkable CT evaluation of the left thigh with only induration of the superficial soft tissues consistent with patient's presentation Contrast-enhanced CT evaluation of the pelvis demonstrates large pelvic mass for which contrast enhanced CT of the abdomen and pelvis is recommended as this mass is not entirely included on the current study (unless this is a known finding). Abdomen/Pelvis CT 01/21/25 05:37 Impression: 12.5 x 11.1 x 9 x 1 cm heterogeneous mixed solid and cystic pelvic mass, highly suspicious for gynecologic malignancy. Please see details above. Scattered much smaller peritoneal implants, compatible with peritoneal metastatic disease. Prominent appendix, but no definite acute inflammatory change evident. Correlate clinically. Pelvis Ultrasound 01/21/25 15:07 IMPRESSION: Mass occupying the midline and right adnexal area which may indicate ovarian mass. Further evaluation advised.
[2025-01-22 16:44] LABS: Glucose Point of Care 121 mg/dl (65-105)
--- NOTE | 2025-01-22 17:41 | WPDONCCN ---
Assessment and Plan Assessment and plan (1) Pelvic mass in female: Code(s): R19.00 - Intra-abdominal and pelvic swelling, mass and lump, unspecified site Status: Acute Assessment and Plan: Patient is a pleasant 84-year-old female with previous history of endometrial/ovarian cancer status post hysterectomy and oophorectomy in 1974. Patient came into the hospital with spider bite involving the left upper thigh region. She denies any abdominal distention and discomfort. CT abdomen and pelvis came back positive for 12.5 x 11.1 x 9 cm mass cystic and solid in nature in the pelvic region highly suspicious for a gynecological malignancy along with peritoneal implants. Tumor marker CA 125 has been ordered and pending. I have discussed the diagnosis of ovarian cancer with patient and the daughter in detail. She will follow-up with us in the office. I will recommend peritoneal implant biopsy after CA 125 level come back. I have answered all the questions to patient's satisfaction. HPI Data of Consult Date/Time: 01/22/25 17:41 Requesting Physician: Anselmo Hurd PA-C Primary Care Provider: Jovany Escoto MD Consult Narrative Narrative: Alcira Contreras is a 84 year old female with history of uterine/ovarian cancer status post complete hysterectomy in 1974 along with history of type 2 diabetes, hypertension, GERD and dyslipidemia came into the hospital with left thigh discomfort and pain. Patient had a spider bite. She denies any fevers and chills. Denies any abdominal pain and distention. Denies any bleeding. CT abdomen showed 12.5 x 11.1 x 9 cm solid and cystic pelvic mass highly suspicious for a malignancy. There was peritoneal implants. Pelvic ultrasound showed mass occupying the midline and right adnexal region indicated ovarian mass. Denies any other complaint Review of Systems Review of Systems: Review of system as per HPI otherwise negative [facility] Past Medical History Medical History Obesity 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 History of tobacco use Hypertensive chronic kidney disease History of uterine cancer Arthritis Essential (primary) hypertension Mixed hyperlipidemia Primary osteoarthritis of both knees Type 2 diabetes mellitus without complication, without long-term current use of insulin Surgical History Surgical History History of total hysterectomy Family History Family History Mother Hypertension Family history of cardiovascular disease Father Cerebrovascular accident, Onset Age: 69 Sibling Family history of malignant neoplasm, Onset Age: 75 Social History Social History Social History: Smoking packs per day: 2 Smoking cigarettes per day: 40.0 Years smoked: 50 Smoking pack-years: 100.00 Smoking status: Former smoker Tobacco type: cigarettes Second hand tobacco smoke exposure: No Smoking end date: 10/16/02 Alcohol intake: current Drinks per week: 1 Alcohol use details: STATES 1 DRINK/MONTH Substance use: never Substance use type: does not use Do You Feel Safe in your Home?: Yes Lack of Transportation: No Lack of Food: Never True Current Housing: I Have Housing Concerned About Future Housing: No Difficulty Paying Gas/Electric Bills: No Difficulty Paying for Meds: No Currently Unemployed: No Education: High School Diploma/GED Difficulty w/ Childcare or Family Care: No Living arrangements: alone Occupation/Education: retired Gender identity (if verbalized by the patient): Female Sexual Orientation (if Verbalized by the Patient): Straight or Heterosexual Spiritual care concerns: No Meds Home Medications and Allergies Home Medications ?Medication ?Instructions ?Recorded ?Confirmed ?Type aspirin 81 mg capsule See Rx Instructions .Route .COMPLEX 12/13/21 01/21/25 History vit C 250 mg-vit E 90 mg-zinc 40 1 tablet PO BID 12/13/21 01/21/25 History mg-copper 1 [id number] capsule (PreserVision AREDS-2) blood-glucose meter (Contour Next See Rx Instructions .Route 12/24/21 01/21/25 Rx EZ Meter) .COMPLEX #1 ea lancets (Microlet Lancet) See Rx Instructions .Route 03/04/22 01/21/25 Rx .COMPLEX #100 ea furosemide 20 mg tablet See Rx Instructions .Route 12/29/22 01/21/25 Rx .COMPLEX #90 tabs blood sugar diagnostic (Contour #50 strips 07/11/24 01/21/25 Rx Next Test Strips) benazepril 10 mg tablet See Rx Instructions .Route 09/06/24 01/21/25 Rx .COMPLEX #90 tabs cholecalciferol (vitamin D3) 1,250 1,250 mcg PO WEEKLY #12 caps 10/18/24 01/21/25 Rx mcg (50,000 unit) capsule simvastatin 40 mg tablet See Rx Instructions .Route 10/30/24 01/21/25 Rx .COMPLEX #90 tabs metformin 500 mg tablet See Rx Instructions .Route 11/11/24 01/21/25 Rx .COMPLEX #90 tabs famotidine 20 mg tablet See Rx Instructions .Route 12/12/24 01/21/25 Rx .COMPLEX #180 tabs amlodipine 10 mg tablet See Rx Instructions .Route 01/16/25 01/21/25 Rx .COMPLEX #90 tabs metoprolol tartrate 25 mg tablet See Rx Instructions .Route 01/21/25 Rx .COMPLEX #180 tabs Allergies Allergy/AdvReac Type Severity Reaction Status Date / Time No Known Allergies Allergy Verified 01/18/25 12:17 Vital Signs Vital Signs - 24 hr 01/21/25 19:58 01/21/25 19:58 01/21/25 20:00 Temperature 36.7 C Pulse Rate 86 86 98 Respiratory Rate 18 18 Blood Pressure 132/63 Pulse Oximetry 95 94 Oxygen Delivery Room Air 01/22/25 00:00 01/22/25 00:00 01/22/25 04:00 Temperature 36.5 C 36.4 C Pulse Rate 86 89 87 Respiratory Rate 18 20 Blood Pressure 123/56 L 121/50 L Pulse Oximetry 91 90 Oxygen Delivery 01/22/25 04:00 01/22/25 08:00 01/22/25 08:00 Temperature Pulse Rate 85 96 Respiratory Rate Blood Pressure Pulse Oximetry Oxygen Delivery Room Air 01/22/25 09:50 01/22/25 12:00 01/22/25 14:40 Temperature 35.8 C L Pulse Rate 99 82 84 Respiratory Rate 18 Blood Pressure 126/82 Pulse Oximetry 97 Oxygen Delivery 01/22/25 16:00 Temperature Pulse Rate 87 Respiratory Rate Blood Pressure Pulse Oximetry Oxygen Delivery Exam Narrative: Lungs are clear to auscultation bilaterally Cardiovascular regular rate rhythm no murmurs Abdomen soft nontender nondistended Extremities no edema Results Labs 01/22/25 05:06 01/22/25 05:06 Labs: Short CBC 01/22/25 Range/Units 05:06 WBC 14.7 H (4.5-10.0) K/mm3 Hgb 11.9 L (12.0-15.0) g/dL Hct 37.7 (37.0-47.0) % Plt Count 263 (150-375) k/mm3 BMP 01/22/25 05:06 Sodium 138 Potassium 3.2 L Chloride 104 Carbon Dioxide 27 BUN 17 D Creatinine 0.82 Glucose 126 H Calcium 7.7 L Liver Function 01/22/25 Range/Units 05:06 Total Bilirubin 0.7 (0.2-1.3) mg/dL AST 80 H (14-36) U/L ALT 79 H (6-35) U/L Alkaline Phosphatase 139 H (38-126) U/L Albumin 2.9 L (3.5-5.1) g/dL
[2025-01-22] MEDS: ACETAMINOPHEN 325 MG TABLET 650 MG PO (20:27)
[2025-01-22 21:52] LABS: Vancomycin Trough 8.8 ug/mL (10.0-20.0)
[2025-01-22] MEDS: VANCOMYCIN 1,500 MG/NS 500 ML 1,500 MG/500 ML BAG 125 MG IVPB (22:35)
[2025-01-23] VITALS (10 sets, daily range): BP systolic 118–141; BP diastolic 50–73; PULSE 63–102; RESP 16–18; TEMP 36.2–37.6; O2SAT 92–94
[2025-01-23 06:03] LABS: Basophils Absolute Auto 0.1 K/mm3 (0.0-0.1); Basophils Percent Auto 0.5 % (0.2-1.2); Eosinophils Absolute Auto 1.2 K/mm3 (0-0.3); Eosinophils Percent Auto 9.5 % (0-4.4); Hematocrit 36.5 % (37.0-47.0); Hemoglobin 11.5 g/dL (12.0-15.0); Immature Granulocyte Absolute 0.11 K/mm3 (0.00-0.031); Immature Granulocyte Percent A 0.8 % (0-0.5); Lymphocytes Absolute Auto 1.62 K/mm3 (0.9-3.2); Lymphocytes Percent Auto 12.5 % (18.3-44.2); Mean Corpuscular HGB Conc 31.5 g/dl (32-36); Mean Corpuscular Hemoglobin 29.9 pg (26-34); Mean Corpuscular Volume 95.1 fl (80-100); Mean Platelet Volume 11.7 fl (7.4-10.4); Monocytes Absolute Auto 1.5 K/mm3 (0.1-0.6); Monocytes Percent Auto 11.6 % (2.6-8.5); Neutrophils Absolute Auto 8.5 K/mm3 (1.3-6.7); Neutrophils Percent Auto 65.1 % (45.5-73.1); Platelet Count Result 285 k/mm3 (150-375); Red Blood Count 3.84 M/mm3 (4.2-5.4); Red Cell Distribution Width 14.2 % (11.5-14.5)
[2025-01-23 06:07] LABS: Alanine Aminotransferase 72 U/L (6-35); Albumin Level 2.9 g/dL (3.5-5.1); Alkaline Phosphatase 140 U/L (38-126); Anion Gap 5 mmol/L (4-12); Aspartate Amino Transferase 65 U/L (14-36); Bilirubin,Total 0.5 mg/dL (0.2-1.3); Blood Urea Nitrogen 15 mg/dL (7-17); Calcium 7.7 mg/dL (8.4-10.2); Carbon Dioxide 29 mmol/L (22-30); Chloride 104 mmol/L (98-107); Estimated CRCL calculation 48 ml/min; Estimated Glomerular Filt Rate 60; Glucose 128 mg/dL (65-110); Potassium 3.2 mmol/L (3.4-5.0); Sodium 138 mmol/L (137-145)
[2025-01-23 06:57] LABS: Glucose Point of Care 151 mg/dl (65-105)
[2025-01-23 08:27] LABS: Glucose Point of Care 163 mg/dl (65-105)
[2025-01-23] MEDS: METOPROLOL TARTRATE 25 MG TABLET PO ×2 (09:10→20:25)
[2025-01-23] MEDS: FAMOTIDINE 20 MG TABLET PO ×2 (09:10→20:25)
[2025-01-23] MEDS: CALCIUM/VITAMIN D 500 MG/5 MCG (200 I.U.) TABLET PO (09:10)
[2025-01-23] MEDS: ACETAMINOPHEN 325 MG TABLET 650 MG PO (09:11)
[2025-01-23] MEDS: POTASSIUM CHLORIDE 20 MEQ ER TABLET 40 MEQ PO (09:11)
[2025-01-23] MEDS: ASPIRIN 81 MG ENTERIC TABLET PO (09:11)
[2025-01-23] MEDS: lisinopriL 10 MG TABLET PO (09:11)
[2025-01-23] MEDS: SIMVASTATIN 20 MG TABLET PO (09:11)
[2025-01-23] MEDS: HEPARIN SODIUM 5,000 UNITS/ML VIAL 5000 UNITS SUB-Q ×2 (09:11→20:25)
[2025-01-23] MEDS: amLODIPine BESYLATE 5 MG TABLET PO (09:11)
[2025-01-23] MEDS: VANCOMYCIN 1,500 MG/NS 500 ML 1,500 MG/500 ML BAG 250 MG IVPB (09:12)
[2025-01-23 10:33] LABS: CA-125 135 U/mL (<35)
--- NOTE | 2025-01-23 10:58 | PM.DS ---
DS: Admitting Diagnosis Discharge Date 01/23/2025 Admitting Diagnosis Pelvic mass in female Left thigh cellulitis DS: Discharge Diagnosis Discharge Diagnosis (1) Cellulitis: Qualifiers: Site of cellulitis: extremity Site of cellulitis of extremity: lower extremity Code(s): L03.90 - Cellulitis, unspecified Status: Acute (2) Pelvic mass in female: Code(s): R19.00 - Intra-abdominal and pelvic swelling, mass and lump, unspecified site Status: Acute (3) Type 2 diabetes mellitus without complication, without long-term current use of insulin: Code(s): E11.9 - Type 2 diabetes mellitus without complications Status: Acute (4) Elevated liver enzymes: Code(s): R74.8 - Abnormal levels of other serum enzymes Status: Acute DS: Summary Hospital Course Reason for hospitalization: Left thigh redness Hospital Course: Alcira Contreras is a 84F a with a mhx significant for NIDDM2, hypertension, GERD, dyslipidemia, uterine cancer About 4 days prior to admission, she in the middle of the night developed a new onset left thigh discomfort/pain, which when she reached out to palpate noticed a new blister which was not there when she retired to bed. The surrounding skin was red, firm to touch and painful when manipulated; the blister did eventually rupture and when she visited an urgent care center, was placed on Doxycycline. She adhered to this regimen religiously but on the day of presentation the span of the erythematous area had progressed with a pale center. With no known modifying factors, it was associated with anxiety and malaise; she denies fevers, chills, rigors, joint involvement or other skin lesions. On the day the lesion appeared, she had only merely left her home to search for an [employer] package; she states that her home is not particularly surrounded by coughlin or bushes, nor has she particularly seen spiders within the vicinity of her home. She does not smoke/chew tobacco, drink alcohol or consume recreational/illicit drugs. In ED: WBC 13.8; his P width 0.5; MCV 94.6; PO2 334 ESR 21; CRP 4. NA 137; K 3.9; Cl 97; CO2 27; HGB 13; BUN 33; CR 1.09. CTAP: 12.5 x 11.1 x 9 x 1 cm heterogeneous mixed solid and cystic pelvic mass, highly suspicious for gynecologic malignancy. Scattered much smaller peritoneal implants, compatible with peritoneal metastatic disease. Prominent appendix, but no definite acute inflammatory change evident. CT left lower extremity:Unremarkable CT evaluation of the left thigh with only induration of the superficial soft tissues consistent with patient's presentation. Contrast-enhanced CT evaluation of the pelvis demonstrates large pelvic mass for which contrast enhanced CT of the abdomen and pelvis is recommended as this mass is not entirely included on the current study (unless this is a known finding) Alcira Contreras was admitted, evaluated, managed for a pelvic mass evaluation as well as a left thigh cellulitis Time Spent with Patient Time attestation: Total time spent providing and/or coordinating discharge services:45 Exam Narrative: General: well appearing, appears stated age. HEENT: normocephalic, atraumatic. Mucous membranes moist. EOMI, PERRLA, bilateral sclera anicteric, no conjunctival injection. Neck supple without JVD, lymphadenopathy, or bruit. Respiratory: clear to ascultation bilaterally. No rales/rhonic/wheezes. Cardiovascular: Regular rate and rhythm, normal S1-S2 upon ascultation. No murmurs, rubs, or clicks. PMI is nondisplaced, capillary refill less than 3 second. Abdomen: Soft, round, no pulsatile masses, nondistended and nontender. No rebound, no guarding. No CVA tenderness, no hepatosplenomegaly. Bowel sounds present to all four quadrants. No high pitch or tinkling sounds, resonant to percussion. Extremities: No cyanosis, clubbing, or edema present. Pulses are palpable 2/2. Right thigh wound small darkened area and center, not necrotic chronic, with erythema no drainage Neuro: Alert and orientated x 4. PERRLA. Cranial nerves 2-12 intact without focal deficit. Skin: Warm, dry, and intact, without rash, erythema, or lesion. Psych: pleasant, cooperative, normal speech, normal affect, no hallucinations, no dysarthia Const: General: comfortable HENMT: Ears: TM's normal bilaterally Mouth: Yes moist mucous membranes Eyes: General: appearance normal, both eyes and all related structures Pupils: Equal, round and reactive pupils present EOM: EOMs intact bilaterally Neck: Neck: supple Resp: Effort & Inspection: normal respiratory effort Auscultation: clear to auscultation bilaterally Cardio: Rate: regular rate Rhythm: regular rhythm GI: Inspection: distended Auscultation: normal bowel sounds Skin: General skin exam: erythema, lesion and wounds noted Lesions: lesion noted Wounds: wounds noted Neuro: General: gait normal Cranial nerves: Yes Equal, round and reactive pupils present Motor exam (neuro): 5/5 motor strength present throughout, Normal motor muscle tone present throughout and Abnormal motor strength present Psych: Mental Status: mental status grossly normal Affect: Anxious affect present DS: Data Data Completed and Pending Labs on day of discharge: Labs from last 24 hours 01/23/25 01/23/25 01/22/25 08:11 05:29 21:14 WBC 13.0 H RBC 3.84 L Hgb 11.5 L Hct 36.5 L MCV 95.1 MCH 29.9 MCHC 31.5 L RDW 14.2 Plt Count 285 MPV 11.7 H Immature Gran % (Auto) 0.8 H Neut % (Auto) 65.1 Lymph % (Auto) 12.5 L Barron % (Auto) 11.6 H Eos % (Auto) 9.5 H Baso % (Auto) 0.5 Lymph # (Auto) 1.62 Barron # (Auto) 1.5 H Eos # (Auto) 1.2 H Baso # (Auto) 0.1 Abs Immat Gran (auto) 0.11 H Absolute Neuts (auto) 8.5 H Absolute Nucleated RBC 0.000 Nucleated RBC % 0.0 Sodium 138 Potassium 3.2 L Chloride 104 Carbon Dioxide 29 Anion Gap 5 BUN 15 Creatinine 0.90 Estim Creat Clear Calc 48 Estimated GFR 60 Glucose 128 H POC Capillary Glucose 163 H 151 H Calcium 7.7 L Total Bilirubin 0.5 AST 65 H ALT 72 H Alkaline Phosphatase 140 H Total Protein 6.0 L Albumin 2.9 L CA 125 Antigen Vancomycin Trough 01/22/25 01/22/25 01/22/25 21:10 16:38 11:28 WBC RBC Hgb Hct MCV MCH MCHC RDW Plt Count MPV Immature Gran % (Auto) Neut % (Auto) Lymph % (Auto) Barron % (Auto) Eos % (Auto) Baso % (Auto) Lymph # (Auto) Barron # (Auto) Eos # (Auto) Baso # (Auto) Abs Immat Gran (auto) Absolute Neuts (auto) Absolute Nucleated RBC Nucleated RBC % Sodium Potassium Chloride Carbon Dioxide Anion Gap BUN Creatinine Estim Creat Clear Calc Estimated GFR Glucose POC Capillary Glucose 121 H 192 H Calcium Total Bilirubin AST ALT Alkaline Phosphatase Total Protein Albumin CA 125 Antigen Vancomycin Trough 8.8 L 01/22/25 05:06 WBC RBC Hgb Hct MCV MCH MCHC RDW Plt Count MPV Immature Gran % (Auto) Neut % (Auto) Lymph % (Auto) Barron % (Auto) Eos % (Auto) Baso % (Auto) Lymph # (Auto) Barron # (Auto) Eos # (Auto) Baso # (Auto) Abs Immat Gran (auto) Absolute Neuts (auto) Absolute Nucleated RBC Nucleated RBC % Sodium Potassium Chloride Carbon Dioxide Anion Gap BUN Creatinine Estim Creat Clear Calc Estimated GFR Glucose POC Capillary Glucose Calcium Total Bilirubin AST ALT Alkaline Phosphatase Total Protein Albumin CA 125 Antigen 135 H Vancomycin Trough Preliminary micro results at discharge 01/20/25 21:55 Blood Culture - Preliminary Blood 01/20/25 21:20 Blood Culture - Preliminary Blood Discharge Plan Discharge Attending physician on discharge: Anselmo Hurd Consulting providers: Rm Galeana; Jacek Ríos; Alex Sierra Discharging Clinician: Anselmo Hurd Anticipated Discharge Date/Time: 01/23/25 10:49 Patient Disposition: Home Activity: as tolerated Diet: as tolerated Discharge Instructions: Discharge disposition: Take medications as prescribed. You will be prescribed Linelozid (Zyrox) for 7 days. Monitor blood pressures Return to the emergency department if he developed sudden shortness of breath, chest pain, nausea, vomiting, upset stomach or intractable diarrhea Return to the emergency department if you develop fever greater than 101.5 Follow-up with the primary care physician within 1-2 weeks You are instructed to also follow-up with Hematology and Obstetrics. Call their offices as soon as possible to schedule appointments. Thank you for [facility] for your healthcare needs Patient Instructions: Antibiotic Form Patient Language: Tunisian Stand Alone Forms: General Discharge Information Follow-up/Referrals: Jacek Ríos MD [Physician] - Jovany Escoto MD [Primary Care Provider] - Rm Galeana MD [Physician] - Discharge Medications: New linezolid 600 mg Tablet 600 mg PO Q12HR 7 Days Qty: 14 0RF Continued furosemide 20 mg tablet See Rx Instructions .ROUTE .COMPLEX Qty: 90 1RF Dose Instruction: TAKE 1 TABLET BY MOUTH EVERY OTHER MORNING BEFORE BREAKFAST. Rx Instructions: TAKE 1 TABLET BY MOUTH EVERY OTHER MORNING BEFORE BREAKFAST. PreserVision AREDS-2 250-90-40-1 mg Capsule 1 tablet PO BID aspirin 81 mg Capsule See Rx Instructions .ROUTE .COMPLEX Rx Instructions: 1 TAB TWICE WEEK - MONDAY AND MONDAY blood-glucose meter [[facility] See Rx Instructions .ROUTE .COMPLEX Qty: 1 0RF Dose Instruction: CHECK BLOOD SUGAR DAILY NEEDED DIRECTED Rx Instructions: CHECK BLOOD SUGAR DAILY NEEDED DIRECTED lancets [Microlet Lancet] [facility] [place], [place] See Rx Instructions .ROUTE .COMPLEX Qty: 100 0RF Dose Instruction: CHECK BLOOD SUGAR DAILY NEEDED DIRECTED Rx Instructions: CHECK BLOOD SUGAR DAILY NEEDED DIRECTED (DME) Contour Next Test Strips Strip See Rx Instructions .ROUTE .COMPLEX Qty: 50 1RF Dose Instruction: CHECK BLOOD SUGAR DAILY NEEDED DIRECTED Rx Instructions: CHECK BLOOD SUGAR DAILY NEEDED DIRECTED benazepril 10 mg tablet See Rx Instructions .ROUTE .COMPLEX Qty: 90 1RF Dose Instruction: TAKE 1 TABLET BY MOUTH EVERY DAY Rx Instructions: TAKE 1 TABLET BY MOUTH EVERY DAY cholecalciferol (vitamin D3) 1,250 mcg (50,000 unit) capsule 1,250 mcg PO WEEKLY Qty: 12 3RF Rx Instructions: weekly on Sun simvastatin 40 mg tablet See Rx Instructions .ROUTE .COMPLEX Qty: 90 1RF Dose Instruction: TAKE 1 TABLET BY MOUTH EVERY DAY Rx Instructions: TAKE 1 TABLET BY MOUTH EVERY DAY metformin 500 mg tablet See Rx Instructions .ROUTE .COMPLEX Qty: 90 2RF Dose Instruction: TAKE 1 TABLET BY MOUTH EVERY DAY Rx Instructions: TAKE 1 TABLET BY MOUTH EVERY DAY famotidine 20 mg tablet See Rx Instructions .ROUTE .COMPLEX Qty: 180 0RF Dose Instruction: TAKE 1 TABLET BY MOUTH TWICE A DAY Rx Instructions: TAKE 1 TABLET BY MOUTH TWICE A DAY amlodipine 10 mg tablet See Rx Instructions .ROUTE .COMPLEX Qty: 90 1RF Dose Instruction: TAKE 1 TABLET BY MOUTH EVERY DAY Rx Instructions: TAKE 1 TABLET BY MOUTH EVERY DAY metoprolol tartrate 25 mg tablet See Rx Instructions .ROUTE .COMPLEX Qty: 180 1RF Dose Instruction: TAKE 1 TABLET BY MOUTH TWICE A DAY Rx Instructions: TAKE 1 TABLET BY MOUTH TWICE A DAY Date of admission: 04/08/25 00:20 Primary Care Provider: Jovany Escoto Admitting Provider: Victorino Douglas Attending physician on admission: Anselmo Hurd Condition: Stable Quality VTE Prophylaxis VTE prophylaxis: mechanical ordered and pharmacologic ordered
--- NOTE | 2025-01-23 11:39 | P.PNGS_ITS ---
Progress Note: A&P Assessment and Plan (1) Cellulitis: Qualifiers: Site of cellulitis: extremity Site of cellulitis of extremity: lower extremity Code(s): L03.90 - Cellulitis, unspecified Status: Acute Assessment and Plan: Left upper thigh cellulitis improving. No spreading erythema overnight and induration improved. There is still a central darkened area with no fluctuance or drainage. Continue IV antibiotics. Will repeat labs and exam tomorrow. If this is improving, then she could discharge home tomorrow on oral antibiotics with follow-up. Plan I have discussed the patient's case and plan of care with Dr. Sierra. Subjective Subjective Date/Time Seen: 01/23/25 11:39 Patient reports: feels better and afebrile Interval history: Reports improvement in the swelling. No spreading of the redness overnight. WBC down to 13. Exam Const: General: comfortable and no acute distress Skin: Other: Upper medial left thigh erythema unchanged since yesterday and induration improved. Still a central area of darkened skin with no fluctuance or drainage. Objective Data Vital Signs Vital Signs: Vital Signs - 24 hr 01/22/25 12:00 01/22/25 14:40 01/22/25 16:00 Temperature 96.5 F L Pulse Rate 82 84 87 Respiratory Rate 18 Blood Pressure 126/82 Pulse Oximetry 97 Oxygen Delivery 01/22/25 20:00 01/22/25 20:00 01/22/25 20:27 Temperature Pulse Rate 101 H 90 Respiratory Rate Blood Pressure Pulse Oximetry Oxygen Delivery Room Air 01/22/25 20:32 01/23/25 00:00 01/23/25 01:19 Temperature 98.2 F 98.2 F Pulse Rate 109 H 74 80 Respiratory Rate 16 16 Blood Pressure 130/80 141/70 H Pulse Oximetry 96 93 Oxygen Delivery 01/23/25 04:00 01/23/25 06:12 01/23/25 08:00 Temperature 97.9 F Pulse Rate 63 87 Respiratory Rate 18 Blood Pressure 127/50 L Pulse Oximetry 92 Oxygen Delivery Room Air 01/23/25 08:26 01/23/25 09:10 Temperature 98.2 F Pulse Rate 89 101 H Respiratory Rate 16 Blood Pressure 129/69 Pulse Oximetry 92 Oxygen Delivery Intake/Output Intake/Output: Intake & Output 01/20/25 01/21/25 01/22/2525 23:59 23:59 23:59 23:59 Intake Total 2905 2560 1740 Balance 2905 2560 1740 Meds/Results Medications: Active Medications Generic Name Dose Route Start Last Admin Trade Name Freq PRN Reason Stop Dose Admin Acetaminophen 650 mg 01/21/25 05:36 01/23/25 09:11 Acetaminophen 325 Mg Tablet PO 650 mg Q4H PRN Administration Mild Pain (1-3) or Fever Amlodipine Besylate 5 mg 01/21/25 09:00 01/23/25 09:11 Amlodipine Besylate 5 Mg Tablet PO 5 mg DAILY MACIE Administration Aspirin 81 mg 01/21/25 09:00 01/23/25 09:11 Aspirin 81 Mg Enteric Tablet PO 81 mg QAM MACIE Administration Dextrose 12.5 gm 01/21/25 00:20 Dextrose 50% 25 Gm/50 Ml Syringe IV PUSH PRN PRN Hypoglycemia Protocol Famotidine 20 mg 01/21/25 09:00 01/23/25 09:10 Famotidine 20 Mg Tablet PO 20 mg Q12HR MACIE Administration Furosemide 20 mg 01/22/25 08:00 01/22/25 09:45 Furosemide 20 Mg Tablet BY MOUTH 20 mg Q48H MACIE Administration Glucagon 1 mg 01/21/25 00:20 Glucagon For Inj 1 Mg Vial IM PRN PRN Hypoglycemia Protocol Glucose 15 gm 01/21/25 00:20 Glucose Oral Gel 15 Gm Of Glucse In 37.5 Gm Tube PO PRN PRN Hypoglycemia Protocol Heparin Sodium (Porcine) 5,000 units 01/21/25 09:00 01/23/25 09:11 Heparin Sodium 5,000 Units/Ml Vial SUB-Q 5,000 units Q12HR MACIE Administration Dextrose 1,000 mls @ 100 mls/hr 01/21/25 00:20 Dextrose 5% 1,000 Ml IVPB PRN PRN Hypoglycemia Protocol Sodium Chloride 1,000 mls @ 50 mls/hr 01/21/25 05:40 01/22/25 06:17 Normal Saline Iv IV CONT 50 mls/hr .Q20H MACIE Administration Insulin Aspart 2 - 5 units 01/21/25 17:00 01/23/25 10:43 Insulin Aspart (*Bkc) 100 Units/Ml SUB-Q Not Given TIDWM MACIE Protocol Linezolid 600 mg 01/23/25 21:00 Linezolid 600 Mg Tablet PO 01/30/25 09:01 Q12HR MACIE Lisinopril 10 mg 01/21/25 14:30 01/23/25 09:11 Lisinopril 10 Mg Tablet PO 10 mg DAILY MACIE Administration Metoprolol Tartrate 25 mg 01/21/25 11:00 01/23/25 09:10 Metoprolol Tartrate 25 Mg Tablet PO 25 mg Q12HR MACIE Administration Morphine Sulfate 2 mg 01/21/25 00:20 Morphine Sulfate (*Crx) 2 Mg/Ml Inj IV PUSH Q2H PRN Pain Rated 7-10 Ondansetron HCl 4 mg 01/21/25 00:20 Ondansetron Inj 4 Mg/2 Ml Vial IV PUSH Q4H PRN Nausea Simvastatin 20 mg 01/21/25 09:00 01/23/25 09:11 Simvastatin 20 Mg Tablet PO 20 mg DAILY MACIE Administration Radiology Results: ITS Impressions Femur X-Ray 01/20/25 18:50 IMPRESSION: No acute or subacute fracture, as detailed above. Lower Extremity CT 01/20/25 23:54 IMPRESSION: Unremarkable CT evaluation of the left thigh with only induration of the superficial soft tissues consistent with patient's presentation Contrast-enhanced CT evaluation of the pelvis demonstrates large pelvic mass for which contrast enhanced CT of the abdomen and pelvis is recommended as this mass is not entirely included on the current study (unless this is a known finding). Abdomen/Pelvis CT 01/21/25 05:37 Impression: 12.5 x 11.1 x 9 x 1 cm heterogeneous mixed solid and cystic pelvic mass, highly suspicious for gynecologic malignancy. Please see details above. Scattered much smaller peritoneal implants, compatible with peritoneal metastatic disease. Prominent appendix, but no definite acute inflammatory change evident. Correlate clinically. Pelvis Ultrasound 01/21/25 15:07 IMPRESSION: Mass occupying the midline and right adnexal area which may indicate ovarian mass. Further evaluation advised. Labs Labs: Laboratory Results - last 24 hr 01/22/25 01/22/25 01/22/25 05:06 16:38 21:10 WBC RBC Hgb Hct MCV MCH MCHC RDW Plt Count MPV Immature Gran % (Auto) Neut % (Auto) Lymph % (Auto) Ellis % (Auto) Eos % (Auto) Baso % (Auto) Lymph # (Auto) Ellis # (Auto) Eos # (Auto) Baso # (Auto) Abs Immat Gran (auto) Absolute Neuts (auto) Absolute Nucleated RBC Nucleated RBC % Sodium Potassium Chloride Carbon Dioxide Anion Gap BUN Creatinine Estim Creat Clear Calc Estimated GFR Glucose POC Capillary Glucose 121 H Calcium Total Bilirubin AST ALT Alkaline Phosphatase Total Protein Albumin CA 125 Antigen 135 H Vancomycin Trough 8.8 L 01/22/25 01/23/25 01/23/25 21:14 05:29 08:11 WBC 13.0 H RBC 3.84 L Hgb 11.5 L Hct 36.5 L MCV 95.1 MCH 29.9 MCHC 31.5 L RDW 14.2 Plt Count 285 MPV 11.7 H Immature Gran % (Auto) 0.8 H Neut % (Auto) 65.1 Lymph % (Auto) 12.5 L Ellis % (Auto) 11.6 H Eos % (Auto) 9.5 H Baso % (Auto) 0.5 Lymph # (Auto) 1.62 Ellis # (Auto) 1.5 H Eos # (Auto) 1.2 H Baso # (Auto) 0.1 Abs Immat Gran (auto) 0.11 H Absolute Neuts (auto) 8.5 H Absolute Nucleated RBC 0.000 Nucleated RBC % 0.0 Sodium 138 Potassium 3.2 L Chloride 104 Carbon Dioxide 29 Anion Gap 5 BUN 15 Creatinine 0.90 Estim Creat Clear Calc 48 Estimated GFR 60 Glucose 128 H POC Capillary Glucose 151 H 163 H Calcium 7.7 L Total Bilirubin 0.5 AST 65 H ALT 72 H Alkaline Phosphatase 140 H Total Protein 6.0 L Albumin 2.9 L CA 125 Antigen Vancomycin Trough
[2025-01-23 11:41] LABS: Glucose Point of Care 148 mg/dl (65-105)
[2025-01-23 12:02] LABS: CA-125 181 U/mL (<35)
--- NOTE | 2025-01-23 12:53 | P.PNIM_ITS ---
Progress Note: A&P Assessment and Plan (1) Cellulitis: Qualifiers: Site of cellulitis: extremity Site of cellulitis of extremity: lower extremity Code(s): L03.90 - Cellulitis, unspecified Status: Acute Assessment and Plan: * Fluid bolus in IVF * Vancomycin, transition to PO Linelozid * Induration marked from yesterday seems to be worsening * Wound care consult * Surgery consulted, appreciate recommendations (2) Pelvic mass in female: Code(s): R19.00 - Intra-abdominal and pelvic swelling, mass and lump, unspecified site Status: Acute Assessment and Plan: * With history of uterine cancer status post total hysterectomy * probable neoplastic mass 12.5 x 11.1 x 9 x 1 cm heterogeneous mixed solid and cystic pelvic mass, highly suspicious for gynecologic malignancy. Scattered much smaller peritoneal implants, compatible with peritoneal metastatic disease. * OB/Oncology consulted * CEA, CA 19-9; AFP * Pelvic US: Mass occupying the midline and right adnexal area which may indicate ovarian mass. Further evaluation advised. * OB okay with f/u outpt (3) Type 2 diabetes mellitus without complication, without long-term current use of insulin: Code(s): E11.9 - Type 2 diabetes mellitus without complications Status: Acute Assessment and Plan: * Hold home metformin while in hospital * Diabetic diet * And Accu-Cheks a.c. HS * SSI (4) Elevated liver enzymes: Code(s): R74.8 - Abnormal levels of other serum enzymes Status: Acute Assessment and Plan: * Daily CMP * Trend levels Plan Miscellaneous care. 1. Code status. Full 2. Nutrition. Carb-controlled 3. VTE prophylaxis. SCDs; MACIE Time Spent With Patient Time: 35 Subjective Date/time seen: 01/23/25 12:53 Interval history: 84F a with a mhx significant for NIDDM2, hypertension, GERD, dyslipidemia, uterine cancer developed a new onset left thigh discomfort/pain, which when she reached out to palpate noticed a new blister which was not there when she retired to bed believes spider bite. 01/23/2025 Patient is sitting comfortable in bed at time of examination. Denies any CP, SOB, n/v, or abdominal pain. Cellulitis on left upper thigh improving, no spreading of erythema overnight. Induration improved. Plan to repeat labs, vitals and physical exam tomorrow AM with hopeful discharge if everything is improving. Review of Systems Review of Systems: All systems reviewed & are unremarkable except as noted in HPI and below Exam Narrative: General: well appearing, appears stated age. HEENT: normocephalic, atraumatic. Mucous membranes moist. EOMI, PERRLA, bilateral sclera anicteric, no conjunctival injection. Neck supple without JVD, lymphadenopathy, or bruit. Respiratory: clear to ascultation bilaterally. No rales/rhonic/wheezes. Cardiovascular: Regular rate and rhythm, normal S1-S2 upon ascultation. No murmurs, rubs, or clicks. PMI is nondisplaced, capillary refill less than 3 second. Abdomen: Soft, round, no pulsatile masses, nondistended and nontender. No rebound, no guarding. No CVA tenderness, no hepatosplenomegaly. Bowel sounds present to all four quadrants. No high pitch or tinkling sounds, resonant to percussion. Extremities: No cyanosis, clubbing, or edema present. Pulses are palpable 2/2. Right thigh wound small darkened area and center, not necrotic chronic, with erythema no drainage Neuro: Alert and orientated x 4. PERRLA. Cranial nerves 2-12 intact without focal deficit. Skin: Upper medial left thigh erythema unchanged since yesterday and induration improved. Still a central area of darkened skin with no fluctuance or drainage. Warm, dry, and otherwise intact. Psych: pleasant, cooperative, normal speech, normal affect, no hallucinations, no dysarthia Objective Data Vital Signs Vital Signs: Vital Signs - 24 hr 01/22/25 14:40 01/22/25 16:00 01/22/25 20:00 Temperature 96.5 F L Pulse Rate 84 87 Respiratory Rate 18 Blood Pressure 126/82 Pulse Oximetry 97 Oxygen Delivery Room Air 01/22/25 20:00 01/22/25 20:27 01/22/25 20:32 Temperature 98.2 F Pulse Rate 101 H 90 109 H Respiratory Rate 16 Blood Pressure 130/80 Pulse Oximetry 96 Oxygen Delivery 01/23/25 00:00 01/23/25 01:19 01/23/25 04:00 Temperature 98.2 F Pulse Rate 74 80 63 Respiratory Rate 16 Blood Pressure 141/70 H Pulse Oximetry 93 Oxygen Delivery 01/23/25 06:12 01/23/25 08:00 01/23/25 08:26 Temperature 97.9 F 98.2 F Pulse Rate 87 89 Respiratory Rate 18 16 Blood Pressure 127/50 L 129/69 Pulse Oximetry 92 92 Oxygen Delivery Room Air 01/23/25 09:10 Temperature Pulse Rate 101 H Respiratory Rate Blood Pressure Pulse Oximetry Oxygen Delivery Intake/Output Intake/Output: Intake & Output 01/20/25 01/21/25 01/22/25 01/23/25 23:59 23:59 23:59 23:59 Intake Total 2905 2560 1740 Balance 2905 2560 1740 Meds/Results Medications: Active Medications Generic Name Dose Route Start Last Admin Trade Name Freq PRN Reason Stop Dose Admin Acetaminophen 650 mg 01/21/25 05:36 01/23/25 09:11 Acetaminophen 325 Mg Tablet PO 650 mg Q4H PRN Administration Mild Pain (1-3) or Fever Amlodipine Besylate 5 mg 01/21/25 09:00 01/23/25 09:11 Amlodipine Besylate 5 Mg Tablet PO 5 mg DAILY MACIE Administration Aspirin 81 mg 01/21/25 09:00 01/23/25 09:11 Aspirin 81 Mg Enteric Tablet PO 81 mg QAM MACIE Administration Dextrose 12.5 gm 01/21/25 00:20 Dextrose 50% 25 Gm/50 Ml Syringe IV PUSH PRN PRN Hypoglycemia Protocol Famotidine 20 mg 01/21/25 09:00 01/23/25 09:10 Famotidine 20 Mg Tablet PO 20 mg Q12HR MACIE Administration Furosemide 20 mg 01/22/25 08:00 01/22/25 09:45 Furosemide 20 Mg Tablet BY MOUTH 20 mg Q48H MACIE Administration Glucagon 1 mg 01/21/25 00:20 Glucagon For Inj 1 Mg Vial IM PRN PRN Hypoglycemia Protocol Glucose 15 gm 01/21/25 00:20 Glucose Oral Gel 15 Gm Of Glucse In 37.5 Gm Tube PO PRN PRN Hypoglycemia Protocol Heparin Sodium (Porcine) 5,000 units 01/21/25 09:00 01/23/25 09:11 Heparin Sodium 5,000 Units/Ml Vial SUB-Q 5,000 units Q12HR MACIE Administration Dextrose 1,000 mls @ 100 mls/hr 01/21/25 00:20 Dextrose 5% 1,000 Ml IVPB PRN PRN Hypoglycemia Protocol Sodium Chloride 1,000 mls @ 50 mls/hr 01/21/25 05:40 01/22/25 06:17 Normal Saline Iv IV CONT 50 mls/hr .Q20H MACIE Administration Insulin Aspart 2 - 5 units 01/21/25 17:00 01/23/25 10:43 Insulin Aspart (*Bkc) 100 Units/Ml SUB-Q Not Given TIDWM [facility] Protocol Linezolid 600 mg 01/23/25 21:00 Linezolid 600 Mg Tablet PO 01/30/25 09:01 Q12HR [facility] Lisinopril 10 mg 01/21/25 14:30 01/23/25 09:11 Lisinopril 10 Mg Tablet PO 10 mg DAILY MACIE Administration Metoprolol Tartrate 25 mg 01/21/25 11:00 01/23/25 09:10 Metoprolol Tartrate 25 Mg Tablet PO 25 mg Q12HR MACIE Administration Morphine Sulfate 2 mg 01/21/25 00:20 Morphine Sulfate (*Crx) 2 Mg/Ml Inj IV PUSH Q2H PRN Pain Rated 7-10 Ondansetron HCl 4 mg 01/21/25 00:20 Ondansetron Inj 4 Mg/2 Ml Vial IV PUSH Q4H PRN Nausea Simvastatin 20 mg 01/21/25 09:00 01/23/25 09:11 Simvastatin 20 Mg Tablet PO 20 mg DAILY MACIE Administration Radiology Results: ITS Impressions Femur X-Ray 01/20/25 18:50 IMPRESSION: No acute or subacute fracture, as detailed above. Lower Extremity CT 01/20/25 23:54 IMPRESSION: Unremarkable CT evaluation of the left thigh with only induration of the superficial soft tissues consistent with patient's presentation Contrast-enhanced CT evaluation of the pelvis demonstrates large pelvic mass for which contrast enhanced CT of the abdomen and pelvis is recommended as this mass is not entirely included on the current study (unless this is a known finding). Abdomen/Pelvis CT 01/21/25 05:37 Impression: 12.5 x 11.1 x 9 x 1 cm heterogeneous mixed solid and cystic pelvic mass, highly suspicious for gynecologic malignancy. Please see details above. Scattered much smaller peritoneal implants, compatible with peritoneal meta static disease. Prominent appendix, but no definite acute inflammatory change evident. Correlate clinically. Pelvis Ultrasound 01/21/25 15:07 IMPRESSION: Mass occupying the midline and right adnexal area which may indicate ovarian mass. Further evaluation advised. Labs Labs: Laboratory Results - last 24 hr 01/21/25 01/22/25 01/22/25 04:00 05:06 16:38 WBC RBC Hgb Hct MCV MCH MCHC RDW Plt Count MPV Immature Gran % (Auto) Neut % (Auto) Lymph % (Auto) [place] % (Auto) Eos % (Auto) Baso % (Auto) Lymph # (Auto) [place] # (Auto) Eos # (Auto) Baso # (Auto) Abs Immat Gran (auto) Absolute Neuts (auto) Absolute Nucleated RBC Nucleated RBC % Sodium Potassium Chloride Carbon Dioxide Anion Gap BUN Creatinine Estim Creat Clear Calc Estimated GFR Glucose POC Capillary Glucose 121 H Calcium Total Bilirubin AST ALT Alkaline Phosphatase Total Protein Albumin CA 125 Antigen 181 H 135 H Vancomycin Trough 01/22/25 01/22/25 01/23/25 21:10 21:14 05:29 WBC 13.0 H RBC 3.84 L Hgb 11.5 L Hct 36.5 L MCV 95.1 MCH 29.9 MCHC 31.5 L RDW 14.2 Plt Count 285 MPV 11.7 H Immature Gran % (Auto) 0.8 H Neut % (Auto) 65.1 Lymph % (Auto) 12.5 L [place] % (Auto) 11.6 H Eos % (Auto) 9.5 H Baso % (Auto) 0.5 Lymph # (Auto) 1.62 [place] # (Auto) 1.5 H Eos # (Auto) 1.2 H Baso # (Auto) 0.1 Abs Immat Gran (auto) 0.11 H Absolute Neuts (auto) 8.5 H Absolute Nucleated RBC 0.000 Nucleated RBC % 0.0 Sodium 138 Potassium 3.2 L Chloride 104 Carbon Dioxide 29 Anion Gap 5 BUN 15 Creatinine 0.90 Estim Creat Clear Calc 48 Estimated GFR 60 Glucose 128 H POC Capillary Glucose 151 H Calcium 7.7 L Total Bilirubin 0.5 AST 65 H ALT 72 H Alkaline Phosphatase 140 H Total Protein 6.0 L Albumin 2.9 L CA 125 Antigen Vancomycin Trough 8.8 L 01/23/25 01/23/25 08:11 11:34 WBC RBC Hgb Hct MCV MCH MCHC RDW Plt Count MPV Immature Gran % (Auto) Neut % (Auto) Lymph % (Auto) [place] % (Auto) Eos % (Auto) Baso % (Auto) Lymph # (Auto) [place] # (Auto) Eos # (Auto) Baso # (Auto) Abs Immat Gran (auto) Absolute Neuts (auto) Absolute Nucleated RBC Nucleated RBC % Sodium Potassium Chloride Carbon Dioxide Anion Gap BUN Creatinine Estim Creat Clear Calc Estimated GFR Glucose POC Capillary Glucose 163 H 148 H Calcium Total Bilirubin AST ALT Alkaline Phosphatase Total Protein Albumin CA 125 Antigen Vancomycin Trough Quality VTE Prophylaxis VTE prophylaxis: mechanical ordered and pharmacologic ordered
[2025-01-23 16:47] LABS: Glucose Point of Care 139 mg/dl (65-105)
[2025-01-23] MEDS: SODIUM CHLORIDE 0.9% IV 1,000 ML 50 ML IV CONT (17:29)
[2025-01-23] MEDS: LINEZOLID 600 MG TABLET PO (20:25)
[2025-01-23 21:02] LABS: Glucose Point of Care 144 mg/dl (65-105)
[2025-01-24] VITALS: BP 145/72; PULSE 89; PULSE 98; RESP 18; TEMP 37; O2SAT 92
[2025-01-24 04:00] VITALS: BP 123/64; PULSE 89; PULSE 99; RESP 20; TEMP 36.7; O2SAT 94
[2025-01-24 06:03] LABS: Basophils Absolute Auto 0.1 K/mm3 (0.0-0.1); Basophils Percent Auto 0.5 % (0.2-1.2); Eosinophils Percent Auto 7.8 % (0-4.4); Hemoglobin 11.5 g/dL (12.0-15.0); Immature Granulocyte Absolute 0.13 K/mm3 (0.00-0.031); Lymphocytes Absolute Auto 1.79 K/mm3 (0.9-3.2); Lymphocytes Percent Auto 13.5 % (18.3-44.2); Mean Corpuscular HGB Conc 31.9 g/dl (32-36); Mean Corpuscular Hemoglobin 30.3 pg (26-34); Mean Corpuscular Volume 94.7 fl (80-100); Mean Platelet Volume 11.4 fl (7.4-10.4); Monocytes Absolute Auto 1.4 K/mm3 (0.1-0.6); Monocytes Percent Auto 10.4 % (2.6-8.5); Neutrophils Absolute Auto 8.9 K/mm3 (1.3-6.7); Neutrophils Percent Auto 66.8 % (45.5-73.1); Platelet Count Result 302 k/mm3 (150-375); Red Cell Distribution Width 14.2 % (11.5-14.5); White Blood Count 13.3 K/mm3 (4.5-10.0)
[2025-01-24 06:11] LABS: Alanine Aminotransferase 56 U/L (6-35); Albumin Level 2.8 g/dL (3.5-5.1); Alkaline Phosphatase 122 U/L (38-126); Anion Gap 6 mmol/L (4-12); Aspartate Amino Transferase 41 U/L (14-36); Bilirubin,Total 0.4 mg/dL (0.2-1.3); Blood Urea Nitrogen 13 mg/dL (7-17); Calcium 7.8 mg/dL (8.4-10.2); Carbon Dioxide 26 mmol/L (22-30); Chloride 104 mmol/L (98-107); Estimated CRCL calculation 53 ml/min; Estimated Glomerular Filt Rate > 60; Glucose 131 mg/dL (65-110); Potassium 3.5 mmol/L (3.4-5.0); Sodium 136 mmol/L (137-145)
[2025-01-24 08:00] VITALS: BP 119/55; PULSE 77; PULSE 92; RESP 18; TEMP 36.9; O2SAT 97
[2025-01-24 08:16] LABS: Glucose Point of Care 130 mg/dl (65-105)
[2025-01-24 08:24] VITALS: PULSE 85
[2025-01-24] MEDS: METOPROLOL TARTRATE 25 MG TABLET PO (08:24)
[2025-01-24] MEDS: SIMVASTATIN 20 MG TABLET PO (08:24)
[2025-01-24] MEDS: ASPIRIN 81 MG ENTERIC TABLET PO (08:24)
[2025-01-24] MEDS: FUROSEMIDE 20 MG TABLET BY MOUTH (08:24)
[2025-01-24] MEDS: LINEZOLID 600 MG TABLET PO (08:24)
[2025-01-24] MEDS: HEPARIN SODIUM 5,000 UNITS/ML VIAL 5000 UNITS SUB-Q (08:25)
[2025-01-24] MEDS: lisinopriL 10 MG TABLET PO (08:25)
[2025-01-24] MEDS: amLODIPine BESYLATE 5 MG TABLET PO (08:25)
[2025-01-24] MEDS: FAMOTIDINE 20 MG TABLET PO (08:25)
--- NOTE | 2025-01-24 10:13 | WPDPN ---
Progress Note: A&P Assessment and Plan (1) Cellulitis of left thigh: Code(s): L03.116 - Cellulitis of left lower limb Status: Acute Assessment and Plan: No abscess abscess formation. Does not need incision and drainage of the wound. Since the redness and induration or improving and a white blood cell count is not increasing I think she can be managed as an outpatient with oral antibiotics. She stand or antibiotics for least the next 10 days. Can see her back in the office for follow-up in about 7 to 10 days. Subjective Date/time seen: 01/24/25 10:13 Interval history: Patient without acute complaints. Clinical status is stable. Tolerating diet. Blood sugars are well controlled. No fever. No complaints of any worsening pain in her left thigh wound[place] [address]. Exam Extrem: Other: Left thigh area of cellulitis is decreasing in size. The redness is now inside the marked pen heck from 2 days ago. The central area of induration is slightly decreased as well. There is no fluctuance in the center portion and no abscess to drain. Objective Data Vital Signs Vital Signs: Vital Signs - 24 hr 01/23/25 12:00 01/23/25 12:00 01/23/25 16:00 Temperature 36.2 C L Pulse Rate 85 78 81 Respiratory Rate 16 Blood Pressure 118/55 L Pulse Oximetry 94 Oxygen Delivery 01/23/25 20:00 01/23/25 20:00 01/23/25 20:00 Temperature 37.6 C H Pulse Rate 102 H 93 Respiratory Rate 18 Blood Pressure 139/73 Pulse Oximetry 92 Oxygen Delivery Room Air 01/24/25 00:00 01/24/25 00:00 01/24/25 04:00 Temperature 37.0 C Pulse Rate 98 89 89 Respiratory Rate 18 Blood Pressure 145/72 H Pulse Oximetry 92 Oxygen Delivery 01/24/25 04:00 01/24/25 08:00 01/24/25 08:00 Temperature 36.7 C Pulse Rate 99 92 Respiratory Rate 20 Blood Pressure 123/64 Pulse Oximetry 94 Oxygen Delivery Room Air 01/24/25 08:24 Temperature Pulse Rate 85 Respiratory Rate Blood Pressure Pulse Oximetry Oxygen Delivery Intake/Output Intake/Output: Intake & Output 01/21/25 01/22/25 01/23/25 01/24/25 23:59 23:59 23:59 23:59 Intake Total 2905 2560 3770 400 Balance 2905 2560 3770 400 Meds/Results Medications: Active Medications Generic Name Dose Route Start Last Admin Trade Name Freq PRN Reason Stop Dose Admin Acetaminophen 650 mg 01/21/25 05:36 01/23/25 09:11 Acetaminophen 325 Mg Tablet PO 650 mg Q4H PRN Administration Mild Pain (1-3) or Fever Amlodipine Besylate 5 mg 01/21/25 09:00 01/24/25 08:25 Amlodipine Besylate 5 Mg Tablet PO 5 mg DAILY MACIE Administration Aspirin 81 mg 01/21/25 09:00 01/24/25 08:24 Aspirin 81 Mg Enteric Tablet PO 81 mg QAM MACIE Administration Dextrose 12.5 gm 01/21/25 00:20 Dextrose 50% 25 Gm/50 Ml Syringe IV PUSH PRN PRN Hypoglycemia Protocol Famotidine 20 mg 01/21/25 09:00 01/24/25 08:25 Famotidine 20 Mg Tablet PO 20 mg Q12HR MACIE Administration Furosemide 20 mg 01/22/25 08:00 01/24/25 08:24 Furosemide 20 Mg Tablet BY MOUTH 20 mg Q48H MACIE Administration Glucagon 1 mg 01/21/25 00:20 Glucagon For Inj 1 Mg Vial IM PRN PRN Hypoglycemia Protocol Glucose 15 gm 01/21/25 00:20 Glucose Oral Gel 15 Gm Of Glucse In 37.5 Gm Tube PO PRN PRN Hypoglycemia Protocol Heparin Sodium (Porcine) 5,000 units 01/21/25 09:00 01/24/25 08:25 Heparin Sodium 5,000 Units/Ml Vial SUB-Q 5,000 units Q12HR MACIE Administration Dextrose 1,000 mls @ 100 mls/hr 01/21/25 00:20 Dextrose 5% 1,000 Ml IVPB PRN PRN Hypoglycemia Protocol Sodium Chloride 1,000 mls @ 50 mls/hr 01/21/25 05:40 01/23/25 17:29 Normal Saline Iv IV CONT 50 mls/hr .Q20H MACIE Administration Insulin Aspart 2 - 5 units 01/21/25 17:00 01/24/25 08:26 Insulin Aspart (*Bkc) 100 Units/Ml SUB-Q Not Given TIDWM [facility]IE Protocol Linezolid 600 mg 01/23/25 21:00 01/24/25 08:24 Linezolid 600 Mg Tablet PO 01/30/25 09:01 600 mg Q12HR MACIE Administration Lisinopril 10 mg 01/21/25 14:30 01/24/25 08:25 Lisinopril 10 Mg Tablet PO 10 mg DAILY MACIE Administration Metoprolol Tartrate 25 mg 01/21/25 11:00 01/24/25 08:24 Metoprolol Tartrate 25 Mg Tablet PO 25 mg Q12HR MACIE Administration Morphine Sulfate 2 mg 01/21/25 00:20 Morphine Sulfate (*Crx) 2 Mg/Ml Inj IV PUSH Q2H PRN Pain Rated 7-10 Ondansetron HCl 4 mg 01/21/25 00:20 Ondansetron Inj 4 Mg/2 Ml Vial IV PUSH Q4H PRN Nausea Simvastatin 20 mg 01/21/25 09:00 01/24/25 08:24 Simvastatin 20 Mg Tablet PO 20 mg DAILY MACIE Administration Radiology Results: ITS Impressions Femur X-Ray 01/20/25 18:50 IMPRESSION: No acute or subacute fracture, as detailed above. Lower Extremity CT 01/20/25 23:54 IMPRESSION: Unremarkable CT evaluation of the left thigh with only induration of the superficial soft tissues consistent with patient's presentation Contrast-enhanced CT evaluation of the pelvis demonstrates large pelvic mass for which contrast enhanced CT of the abdomen and pelvis is recommended as this mass is not entirely included on the current study (unless this is a known finding). Abdomen/Pelvis CT 01/21/25 05:37 Impression: 12.5 x 11.1 x 9 x 1 cm heterogeneous mixed solid and cystic pelvic mass, highly suspicious for gynecologic malignancy. Please see details above. Scattered much smaller peritoneal implants, compatible with peritoneal metastatic disease. Prominent appendix, but no definite acute inflammatory change evident. Correlate clinically. Pelvis Ultrasound 01/21/25 15:07 IMPRESSION: Mass occupying the midline and right adnexal area which may indicate ovarian mass. Further evaluation advised. Labs Labs: Laboratory Results - last 24 hr 01/21/25 01/22/25 01/23/25 04:00 05:06 11:34 WBC RBC Hgb Hct MCV MCH MCHC RDW Plt Count MPV Immature Gran % (Auto) Neut % (Auto) Lymph % (Auto) [place] % (Auto) Eos % (Auto) Baso % (Auto) Lymph # (Auto) [place] # (Auto) Eos # (Auto) Baso # (Auto) Abs Immat Gran (auto) Absolute Neuts (auto) Absolute Nucleated RBC Nucleated RBC % Sodium Potassium Chloride Carbon Dioxide Anion Gap BUN Creatinine Estim Creat Clear Calc Estimated GFR Glucose POC Capillary Glucose 148 H Calcium Total Bilirubin AST ALT Alkaline Phosphatase Total Protein Albumin CA 125 Antigen 181 H 135 H 01/23/25 01/23/25 01/24/25 16:45 20:59 05:48 WBC 13.3 H RBC 3.80 L Hgb 11.5 L Hct 36.0 L MCV 94.7 MCH 30.3 MCHC 31.9 L RDW 14.2 Plt Count 302 MPV 11.4 H Immature Gran % (Auto) 1.0 H Neut % (Auto) 66.8 Lymph % (Auto) 13.5 L [place] % (Auto) 10.4 H Eos % (Auto) 7.8 H Baso % (Auto) 0.5 Lymph # (Auto) 1.79 [place] # (Auto) 1.4 H Eos # (Auto) 1.0 H Baso # (Auto) 0.1 Abs Immat Gran (auto) 0.13 H Absolute Neuts (auto) 8.9 H Absolute Nucleated RBC 0.000 Nucleated RBC % 0.0 Sodium 136 L Potassium 3.5 Chloride 104 Carbon Dioxide 26 Anion Gap 6 BUN 13 Creatinine 0.82 Estim Creat Clear Calc 53 Estimated GFR > 60 Glucose 131 H POC Capillary Glucose 139 H 144 H Calcium 7.8 L Total Bilirubin 0.4 AST 41 H ALT 56 H Alkaline Phosphatase 122 Total Protein 5.0 L Albumin 2.8 L CA 125 Antigen 01/24/25 08:09 WBC RBC Hgb Hct MCV MCH MCHC RDW Plt Count MPV Immature Gran % (Auto) Neut % (Auto) Lymph % (Auto) [place] % (Auto) Eos % (Auto) Baso % (Auto) Lymph # (Auto) [place] # (Auto) Eos # (Auto) Baso # (Auto) Abs Immat Gran (auto) Absolute Neuts (auto) Absolute Nucleated RBC Nucleated RBC % Sodium Potassium Chloride Carbon Dioxide Anion Gap BUN Creatinine Estim Creat Clear Calc Estimated GFR Glucose POC Capillary Glucose 130 H Calcium Total Bilirubin AST ALT Alkaline Phosphatase Total Protein Albumin CA 125 Antigen
--- NOTE | 2025-01-24 10:21 | P.DS_ITS ---
DS: Admitting Diagnosis Discharge Date 01/24/2025 Admitting Diagnosis Left thigh cellulitis DS: Discharge Diagnosis Discharge Diagnosis (1) Cellulitis: Qualifiers: Site of cellulitis: extremity Site of cellulitis of extremity: lower extremity Code(s): L03.90 - Cellulitis, unspecified Status: Acute (2) Pelvic mass in female: Code(s): R19.00 - Intra-abdominal and pelvic swelling, mass and lump, unspecified site Status: Acute (3) Type 2 diabetes mellitus without complication, without long-term current use of insulin: Code(s): E11.9 - Type 2 diabetes mellitus without complications Status: Acute (4) Elevated liver enzymes: Code(s): R74.8 - Abnormal levels of other serum enzymes Status: Acute DS: Summary Hospital Course Reason for hospitalization: Left thigh redness Hospital Course: Alcira Contreras is a 84F a with a mhx significant for NIDDM2, hypertension, GERD, dyslipidemia, uterine cancer. About 4 days prior to admission, she in the middle of the night developed a new onset left thigh discomfort/pain, which when she reached out to palpate noticed a new blister which was not there when she retired to bed. The surrounding skin was red, firm to touch and painful when manipulated; the blister did eventually rupture and when she visited an urgent care center, was placed on Doxycycline. She adhered to this regimen religiously but on the day of presentation the span of the erythematous area had progressed with a pale center. With no known modifying factors, it was associated with anxiety and malaise; she denies fevers, chills, rigors, joint involvement or other skin lesions. She believes she was bitten by a spider. Imagining are as follows: XR femur LT min 2V showed No acute or subacute fracture, as detailed above. CT LE LT w con showed Unremarkable CT evaluation of the left thigh with only induration of the superficial soft tissues consistent with patient's presentation Contrast-enhanced CT evaluation of the pelvis demonstrates large pelvic mass for which contrast enhanced CT of the abdomen and pelvis is recommended as this mass is not entirely included on the current study (unless this is a known finding). CT abdomen pelvis w con showed 12.5 x 11.1 x 9 x 1 cm heterogeneous mixed solid and cystic pelvic mass, highly suspicious for gynecologic malignancy. Scattered much smaller peritoneal implants, compatible with peritoneal metastatic disease. Pelvic ultrasound showed Mass occupying the midline and right adnexal area which may indicate ovarian mass. She denies any pelvic pain. She denies any pelvic pressure. She denies any rectal pressure our bladder pressure. She denies any vaginal bleeding. She denies any abnormal vaginal discharge. She denies any low back pain. demi chef was consulted regarding pelvic mass and added tumor markers to workup. They spoke with the patient regarding these results and are okay her following up with gynecology oncology outpatient and is otherwise stable at this time. General surgery was consulted regarding left thigh cellulitis due to concerns about necrotic tissue. They agreed that incision and drainage not indicated at this time but will plan to monitor fluctuation or other clinical findings suggesting an abscess formation. Throughout her hospital stay she remained on IV vancomycin and remained on this until discharge. Her cellulitis continued to improve and decrease in size and pain levels. She was transitioned to PO Linezolid and blood work remained stable. Vital signs remained stable and general surgery cleared the patient for discharge. Pt agreeable to this and was discharged on a 7 day course of Linezolid for continued antibiotic coverage. Final Diagnosis: Pelvic Mass, Cellulitis Time Spent with Patient Time attestation: Total time spent providing and/or coordinating discharge services:45 Exam Narrative: General: well appearing, appears stated age. HEENT: normocephalic, atraumatic. Mucous membranes moist. EOMI, PERRLA, bilateral sclera anicteric, no conjunctival injection. Neck supple without JVD, lymphadenopathy, or bruit. Respiratory: clear to ascultation bilaterally. No rales/rhonic/wheezes. Cardiovascular: Regular rate and rhythm, normal S1-S2 upon ascultation. No murmurs, rubs, or clicks. PMI is nondisplaced, capillary refill less than 3 second. Abdomen: Soft, round, no pulsatile masses, nondistended and nontender. No rebound, no guarding. No CVA tenderness, no hepatosplenomegaly. Bowel sounds present to all four quadrants. No high pitch or tinkling sounds, resonant to percussion. Extremities: No cyanosis, clubbing, or edema present. Pulses are palpable 2/2. Left thigh area of cellulitis is decreasing in size. The redness is now inside the marked pen heck from 2 days ago. The central area of induration is significantly decreased as well. There is no fluctuance in the center portion and no abscess to drain. Neuro: Alert and orientated x 4. PERRLA. Cranial nerves 2-12 intact without focal deficit. Skin: Upper medial left thigh erythema improved since yesterday and induration improved. Still a central area of darkened skin with no fluctuance or drainage. Warm, dry, and otherwise intact. Psych: pleasant, cooperative, normal speech, normal affect, no hallucinations, no dysarthia DS: Data Data Completed and Pending Labs on day of discharge: Labs from last 24 hours 01/24/25 01/24/25 01/23/25 08:09 05:48 20:59 WBC 13.3 H RBC 3.80 L Hgb 11.5 L Hct 36.0 L MCV 94.7 MCH 30.3 MCHC 31.9 L RDW 14.2 Plt Count 302 MPV 11.4 H Immature Gran % (Auto) 1.0 H Neut % (Auto) 66.8 Lymph % (Auto) 13.5 L Smith % (Auto) 10.4 H Eos % (Auto) 7.8 H Baso % (Auto) 0.5 Lymph # (Auto) 1.79 Smith # (Auto) 1.4 H Eos # (Auto) 1.0 H Baso # (Auto) 0.1 Abs Immat Gran (auto) 0.13 H Absolute Neuts (auto) 8.9 H Absolute Nucleated RBC 0.000 Nucleated RBC % 0.0 Sodium 136 L Potassium 3.5 Chloride 104 Carbon Dioxide 26 Anion Gap 6 BUN 13 Creatinine 0.82 Estim Creat Clear Calc 53 Estimated GFR > 60 Glucose 131 H POC Capillary Glucose 130 H 144 H Calcium 7.8 L Total Bilirubin 0.4 AST 41 H ALT 56 H Alkaline Phosphatase 122 Total Protein 5.0 L Albumin 2.8 L CA 125 Antigen 01/23/25 01/23/25 01/22/25 16:45 11:34 05:06 WBC RBC Hgb Hct MCV MCH MCHC RDW Plt Count MPV Immature Gran % (Auto) Neut % (Auto) Lymph % (Auto) Smith % (Auto) Eos % (Auto) Baso % (Auto) Lymph # (Auto) Smith # (Auto) Eos # (Auto) Baso # (Auto) Abs Immat Gran (auto) Absolute Neuts (auto) Absolute Nucleated RBC Nucleated RBC % Sodium Potassium Chloride Carbon Dioxide Anion Gap BUN Creatinine Estim Creat Clear Calc Estimated GFR Glucose POC Capillary Glucose 139 H 148 H Calcium Total Bilirubin AST ALT Alkaline Phosphatase Total Protein Albumin CA 125 Antigen 135 H 01/21/25 04:00 WBC RBC Hgb Hct MCV MCH MCHC RDW Plt Count MPV Immature Gran % (Auto) Neut % (Auto) Lymph % (Auto) Smith % (Auto) Eos % (Auto) Baso % (Auto) Lymph # (Auto) Smith # (Auto) Eos # (Auto) Baso # (Auto) Abs Immat Gran (auto) Absolute Neuts (auto) Absolute Nucleated RBC Nucleated RBC % Sodium Potassium Chloride Carbon Dioxide Anion Gap BUN Creatinine Estim Creat Clear Calc Estimated GFR Glucose POC Capillary Glucose Calcium Total Bilirubin AST ALT Alkaline Phosphatase Total Protein Albumin CA 125 Antigen 181 H Preliminary micro results at discharge 01/20/25 21:55 Blood Culture - Preliminary Blood 01/20/25 21:20 Blood Culture - Preliminary Blood Imaging Radiologist's impression: XR femur LT min 2V: FINDINGS: No acute or subacute fracture. Joint spaces are preserved and alignment is maintained. Soft tissues are unremarkable without radiopaque foreign body or significant calcification. Age-appropriate mineralization. IMPRESSION: No acute or subacute fracture, as detailed above. CT LE LT w con IMPRESSION: Unremarkable CT evaluation of the left thigh with only induration of the superficial soft tissues consistent with patient's presentation Contrast-enhanced CT evaluation of the pelvis demonstrates large pelvic mass for which contrast enhanced CT of the abdomen and pelvis is recommended as this mass is not entirely included on the current study (unless this is a known finding). CT abdomen pelvis w con 12.5 x 11.1 x 9 x 1 cm heterogeneous mixed solid and cystic pelvic mass, highly suspicious for gynecologic malignancy. Please see details above. Scattered much smaller peritoneal implants, compatible with peritoneal metastatic disease. Prominent appendix, but no definite acute inflammatory change evident. Correlate clinically. Discharge Plan Discharge Attending physician on discharge: Anselmo Hurd Consulting providers: Rm Galeana; Jacek Ríos; Alex Sierra Discharging Clinician: Anselmo Hurd Anticipated Discharge Date/Time: 01/23/25 10:49 Patient Disposition: Home Activity: may shower and as tolerated Diet: as tolerated Discharge Instructions: Discharge disposition: Take medications as prescribed. You will be prescribed Linelozid (Zyrox) for 7 days. Monitor blood pressures Return to the emergency department if he developed sudden shortness of breath, chest pain, nausea, vomiting, upset stomach or intractable diarrhea Return to the emergency department if you develop fever greater than 101.5 Follow-up with the primary care physician within 1-2 weeks You are instructed to also follow-up with Hematology and Obstetrics. You are also instructed to follow up with Dr. Sierra's office in Orthopedics for continued care of your leg wound in 7-10 days. Call their offices as soon as possible to schedule appointments. Thank you for [facility] for your healthcare needs Patient Instructions: Antibiotic Form Patient Language: Kiswahili Stand Alone Forms: General Discharge Information Follow-up/Referrals: Jacek Ríos MD [Physician] - Jovany Escoto MD [Primary Care Provider] - Rm Galeana MD [Physician] - Alex Sierra MD [Physician] - (Follow-up to see Dr. Sierra in the office in about 7 to 10 days. Patient to call [phone] for an appointment.) Discharge Medications: New linezolid 600 mg Tablet 600 mg PO Q12HR 7 Days Qty: 14 0RF Continued furosemide 20 mg tablet See Rx Instructions .ROUTE .COMPLEX Qty: 90 1RF Dose Instruction: TAKE 1 TABLET BY MOUTH EVERY OTHER MORNING BEFORE BREAKFAST. Rx Instructions: TAKE 1 TABLET BY MOUTH EVERY OTHER MORNING BEFORE BREAKFAST. PreserVision AREDS-2 250-90-40-1 mg Capsule 1 tablet PO BID aspirin 81 mg Capsule See Rx Instructions .ROUTE .COMPLEX Rx Instructions: 1 TAB TWICE WEEK - MONDAY AND MONDAY blood-glucose meter [Contour Next EZ Meter] [facility] [place], [place] See Rx Instructions .ROUTE .COMPLEX Qty: 1 0RF Dose Instruction: CHECK BLOOD SUGAR DAILY NEEDED DIRECTED Rx Instructions: CHECK BLOOD SUGAR DAILY NEEDED DIRECTED lancets [[facility]let [facility]et[facility] See Rx Instructions .ROUTE .COMPLEX Qty: 100 0RF Dose Instruction: CHECK BLOOD SUGAR DAILY NEEDED DIRECTED Rx Instructions: CHECK BLOOD SUGAR DAILY NEEDED DIRECTED (DME) Contour Next Test Strips Strip See Rx Instructions .ROUTE .COMPLEX Qty: 50 1RF Dose Instruction: CHECK BLOOD SUGAR DAILY NEEDED DIRECTED Rx Instructions: CHECK BLOOD SUGAR DAILY NEEDED DIRECTED benazepril 10 mg tablet See Rx Instructions .ROUTE .COMPLEX Qty: 90 1RF Dose Instruction: TAKE 1 TABLET BY MOUTH EVERY DAY Rx Instructions: TAKE 1 TABLET BY MOUTH EVERY DAY cholecalciferol (vitamin D3) 1,250 mcg (50,000 unit) capsule 1,250 mcg PO WEEKLY Qty: 12 3RF Rx Instructions: weekly on Sun simvastatin 40 mg tablet See Rx Instructions .ROUTE .COMPLEX Qty: 90 1RF Dose Instruction: TAKE 1 TABLET BY MOUTH EVERY DAY Rx Instructions: TAKE 1 TABLET BY MOUTH EVERY DAY metformin 500 mg tablet See Rx Instructions .ROUTE .COMPLEX Qty: 90 2RF Dose Instruction: TAKE 1 TABLET BY MOUTH EVERY DAY Rx Instructions: TAKE 1 TABLET BY MOUTH EVERY DAY famotidine 20 mg tablet See Rx Instructions .ROUTE .COMPLEX Qty: 180 0RF Dose Instruction: TAKE 1 TABLET BY MOUTH TWICE A DAY Rx Instructions: TAKE 1 TABLET BY MOUTH TWICE A DAY amlodipine 10 mg tablet See Rx Instructions .ROUTE .COMPLEX Qty: 90 1RF Dose Instruction: TAKE 1 TABLET BY MOUTH EVERY DAY Rx Instructions: TAKE 1 TABLET BY MOUTH EVERY DAY metoprolol tartrate 25 mg tablet See Rx Instructions .ROUTE .COMPLEX Qty: 180 1RF Dose Instruction: TAKE 1 TABLET BY MOUTH TWICE A DAY Rx Instructions: TAKE 1 TABLET BY MOUTH TWICE A DAY Date of admission: 01/23/25 13:10 Primary Care Provider: Jovany Escoto Admitting Provider: Victorino Douglas Attending physician on admission: Anselmo Hurd Condition: Stable Quality VTE Prophylaxis VTE prophylaxis: mechanical ordered and pharmacologic ordered Hospitalist MIPS Heart Failure (Exclusion) Patient has history of Heart Transplant or Left Ventricular Assistive Device?: No IF YES, STOP HERE Heart Failure (Qualifier) Patient has current or prior documentation of LVEF less than or equal to 40%, or mod/servere depressed LVSF?: No IF NO, STOP HERE
[2025-01-24] MEDS: ACETAMINOPHEN 325 MG TABLET 650 MG PO (11:09)
== END 2025-01-24 11:37 | disposition home or self-care (01) | DRG 603 ==
LOC: ANHED 22:15 → ANH3MED 01-21 02:10
PROVIDERS: Obstetrics & Gynecology; Physician Assistant; Admitting Provider Internal Medicine; Emergency Provider Physician Assistant; PCP Family Medicine; Visit Provider Physician Assistant
DX: L03.116 Cellulitis of left lower limb (principal); T63.301A Toxic effect of unspecified spider venom, accidental (unintentional), initial encounter; I49.9 Cardiac arrhythmia, unspecified; I12.9 Hypertensive chronic kidney disease with stage 1 through stage 4 chronic kidney disease, or unspecified chronic kidney disease; N18.9 Chronic kidney disease, unspecified; E11.22 Type 2 diabetes mellitus with diabetic chronic kidney disease; E78.2 Mixed hyperlipidemia; R19.00 Intra-abdominal and pelvic swelling, mass and lump, unspecified site; M17.0 Bilateral primary osteoarthritis of knee; H35.3132 Nonexudative age-related macular degeneration, bilateral, intermediate dry stage; Z79.82 Long term (current) use of aspirin; Z87.891 Personal history of nicotine dependence; Z85.42 Personal history of malignant neoplasm of other parts of uterus
CPT/HCPCS: 36415; 73552; 73701; 74177; 76856; 80053; 80202; 82565; 82948; 83605; 83735; 85025; 85652; 86140; 86304; 87040; 93005; 96361; 96365; 96366; 96367; 96375; 96376; 99212; 99285; A9270; G0378; G0463; J1644; J3370; J3475; J7030; Q9967

== ENCOUNTER 2025-01-27 17:19 | Outpatient (CLI) | payer OTHER, SELFPAY ==
--- NOTE | ~2025-01-27 | XR_ITS ---
Clinical Indication: Cough PA and lateral views of the chest: Comparison: 10/02/2022 Findings: The lungs are clear, without evidence of focal consolidation or pleural effusion. Possible COPD. Cardiomediastinal silhouette is within normal limits. Bones and soft tissues are unremarkable. Impression: Clear lungs. Possible COPD. Reviewed, dictated and finalized at location . Impression: Clear lungs. Possible COPD.
--- OUTSIDE RECORDS SUMMARY | 2025-01-27 17:57 | XMS_ITS | Encounter Summary ---
[facility] Organization [facility] Address 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
--- OUTSIDE RECORDS SUMMARY | 2025-01-27 17:57 | XMS_ITS | Encounter Summary ---
Author Organization [employer] Address [address] [place] [address] Care Team Providers Care Independent Living Specialist Name Role Phone Unavailable Primary Care Provider Unavailabl e Encounter Details Date Type Department Care Team (Late st Contact Info) Description 04/01/2005 Outpatient Historical [facility] ([facility]) [address] 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
--- OUTSIDE RECORDS SUMMARY | 2025-01-27 17:57 | XMS_ITS | Clinical Summary ---
Author Organization [facility] Address [address] 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
[2025-01-27 19:03] LABS: Influenza A QL RT-PCR Negative (Negative); Influenza B QL RT-PCR Negative (Negative); RSV RNA, RT-PCR Negative (Negative); SARS-CoV-2 RNA PCR Negative (Negative)
== END 2025-01-27 17:20 | disposition home or self-care (01) ==
PROVIDERS: PCP Family Medicine; Visit Provider Physician Assistant Medical
DX: R53.1 Weakness (principal); R05.9 Cough, unspecified; R53.83 Other fatigue; Z20.822 Contact with and (suspected) exposure to COVID-19
CPT/HCPCS: 71046; 87637

== ENCOUNTER 2025-03-25 07:07 | Outpatient (RCR) | payer OTHER, SELFPAY ==
[2025-02-19 12:38] VITALS: BMI 32.8
--- NOTE | 2025-02-20 14:45 | P.PN_ITS ---
Progress Note: A&P Assessment and Plan (1) Cellulitis of left thigh: Code(s): L03.116 - Cellulitis of left lower limb Status: Acute Assessment and Plan: Cellulitis has resolved. The open wound continues to slowly heal by secondary intention. About 25% of the wound base as granulation tissue noted now. No necrotic tissue is present. Continue application of Santyl to the wound and covering with dry gauze. This to be done daily. Will have her follow-up again in the Wound Care Clinic in 2 weeks. Subjective Date/time seen: 02/19/25 Interval history: Patient seen in the [facility] today for follow-up on the left anterior thigh wound. She suffered an insect bite in the area and had necrosis of tissue. The necrotic tissue was debrided and cellulitis treated with IV antibiotics during hospitalization and oral antibiotics at home. The wound has been clean and wound care has been Santyl to the wound and cover with dry dressing. She has no complaints today. Patient's daughter is doing the dressing change daily. Exam Extrem: Other: On the left anterior thigh there is a 0.9x3.6x1.5cm wound with areas of granulation tissue around the edges and base. There is small amount of fibrinous exudate but no necrotic tissue. Approximate 25% of the wound has granulation tissue. There is no surrounding cellulitis. Resolving induration is noted. Objective Data Meds/Results Medications: Active Medications Generic Name Dose Route Start Last Admin Trade Name Freq PRN Reason Stop Dose Admin Collagenase 1 applic 02/19/25 12:43 Collagenase Oint 30 Gm Tube TOPICAL 05/22/26 23:59 PRN PRN Wound Care
--- NOTE | 2025-03-05 19:38 | P.PN_ITS ---
Progress Note: A&P Assessment and Plan (1) Open wound of left thigh: Qualifiers: Encounter type: subsequent encounter Qualified Code(s): S71.102D - Unspecified open wound, left thigh, subsequent encounter Code(s): S71.102A - Unspecified open wound, left thigh, initial encounter Status: Acute Assessment and Plan: The open wound on left anterior thigh is healing well. Excellent granulation tissue and contraction of the wound edges is noted. Pre significant decrease in size of the wound. Continue Santyl ointment to the wound and cover with dry gauze. I suspect it will continue to close off in about 2 to 3 weeks and given dry eschar. We will see her back in the [facility] in about 3 weeks. Subjective Date/time seen: 03/04/25 Interval history: Patient returns to the [facility] for a 2 week interval follow-up on her left thigh insect bite wound. It continues to heal slowly. It is mary and healing well. No significant pain is noted. Patient has been dressing it with Santyl and small amount is packed with the dry gauze. Exam Skin: Other: The wound in the left anterior thigh now measures 1x2.3x1cm. Excellent granulation tissue was noted throughout. There is no ongoing cellulitis. Objective Data Meds/Results Medications: Active Medications Generic Name Dose Route Start Last Admin Trade Name Freq PRN Reason Stop Dose Admin Collagenase 1 applic 02/19/25 12:43 Collagenase Oint 30 Gm Tube TOPICAL 05/22/26 23:59 PRN PRN Wound Care
== END 2025-05-05 08:10 | disposition home or self-care (01) ==
LOC: ANHWOC 07:07
PROVIDERS: PCP Family Medicine; Visit Provider Surgery
DX: L03.116 Cellulitis of left lower limb (principal); S71.102D Unspecified open wound, left thigh, subsequent encounter
CPT/HCPCS: 99213; 99214; G0463